=== PATIENT | female | born 1945 | race Caucasian/White ===

== ENCOUNTER 2019-08-08 12:37 | Inpatient (IN) | payer OTHER ==
[~2019-08-08 12:37] MED LIST: MIDAZOLAM HCL 2 MG/2 ML INJ ONE; RSI MEDICATION KIT IV ONE
[2019-08-08] MEDS ORDERED: ROCURONIUM 50 MG/5 ML VIAL IV ONE (12:39)
[2019-08-08] MEDS ORDERED: MAGNESIUM SULFATE 1 gm IVPB 1 GM/100 ML BAG IV ONE (12:46)
[2019-08-08] MEDS ORDERED: METHYLPREDNISOLONE 125 MG INJ ONE (12:46)
[2019-08-08] MEDS ORDERED: LEVALBUTEROL 1.25 MG/3 ML NEB ONE (12:46)
[2019-08-08] MEDS ORDERED: NA CHLORIDE 0.9% 1,000 ML ONE ×2 (12:46→13:41)
--- NOTE | 2019-08-08 13:04 | RAD REPORT ---
EXAM DESCRIPTION: RAD - Chest Single View - 08/08/2019 12:52 pm CLINICAL HISTORY: DYSPNEA Chest pain. COMPARISON: <Comparisons> FINDINGS: Portable technique limits examination quality. Tip of the ET tube is above the rl. Enteric tube descends into the upper abdomen. Left-sided veno us catheter has tip in the SVC in the right atrium. The heart is normal in size. Opacification of the right lung apex with reduced right lung volume.
--- NOTE | 2019-08-08 13:20 | RAD REPORT ---
EXAM DESCRIPTION: CT - Head Brain Wo Cont - 08/08/2019 1:11 pm CLINICAL HISTORY: AMS, seizure, unresponsive Headache, drowsiness COMPARISON: No comparisons TECHNIQUE: All CT scans are performed using dose optimization technique as appropriate and may inclu de automated exposure control or mA/KV adjustment according to patient size. FINDINGS: No intracranial hemorrhage, hydrocephalus or extra-axial fluid collection.No areas of brai n edema or evidence of midline shift. The paranasal sinuses and mastoids are clear. The calvarium is intact. IMPRESSION: No acute intracranial abnormality.
[2019-08-08 13:25] LABS: Potassium 5.2 mmol/L (3.5-5.1); Troponin (Emerg Dept Use Only) 0.06 ng/mL (0.0-0.045)
[2019-08-08 13:26] LABS: Absolute Lymphocytes (CBC) 4.5 K/uL (0.7-4.9); Basophils % 0.3 % (0-1.3); Hematocrit 41.3 % (36.0-45.0); Lymphocytes % 26.6 % (15.3-44.8); MPV 9.1 fL (7.6-11.3); RBC Red Blood Cell Count 5.14 M/uL (3.86-4.86)
[2019-08-08 13:40] LABS: Arterial Blood Carboxyhemoglob 5.3 % (0-1.5); Blood Gas Oxyhemoglobin 93.5 % (94-97); Blood O2 Saturation 99.6 % (92-98.5)
[2019-08-08] MEDS ORDERED: Levofloxacin500mg IV 500 MG/100 ML BAG IV ONE (13:40)
[2019-08-08] MEDS ORDERED: CEFTRIAXONE/SWI 1gm 1 GM/10 ML SYR ONE (13:41)
[2019-08-08] MEDS ORDERED: MIDAZOLAM HCL 2 MG/2 ML INJ ONE ×2 (14:11→14:26)
--- NOTE | 2019-08-08 14:12 | ER ---
Nurse's Notes [facility] Name: Fela Mustafa Age: 73 yrs Sex: Female : 1945 Arrival Date: 08/08/2019 Time: 12:44 Bed 4 Private MD: Diagnosis: Acute respiratory failure with hypercapnia;Hypoxemia;Altered mental status, unspecified Presentation: 08/08 12:48 Presenting complaint: EMS states: toned out for SOB, HX of COPD. heart problems. pt was ch moving on scene, alert, then decompensated on the way down. o2 sat 73, hr 126. Transition of care: patient was not received from another setting of care. Onset of symptoms was August 08, 2019. Risk Assessment: Do you want to hurt yourself or someone else? Patient reports no desire to harm self or others. Initial Sepsis Screen: Does the patient meet any 2 criteria? No. Patient's initial sepsis screen is negative. Does the patient have a suspected source of infection? No. Patient's initial sepsis screen is negative. Care prior to arrival: None. 12:48 Method Of Arrival: EMS: [facility] 12:48 Acuity: GENO 1 Triage Assessment: 12:40 Neuro: Level of Consciousness is unresponsive. 12:40 Pain: Unable to use pain scale. Patient is unresponsive. 12:51 General: Appears distressed, Behavior is unresponsive. Historical: - PMHx: 12:51 heart issues; ch - Immunization history:: Adult Immunizations unknown. - Social history:: Smoking status: Patient uses tobacco products. - Ebola Screening: : Patient negative for fever greater than or equal to 101.5 degrees Fahrenheit, and additional compatible Ebola Virus Disease symptoms Patient denies exposure to infectious person Patient denies travel to an Ebola-affected area in the 21 days before illness onset No symptoms or risks identified at this time. - Unable to obtain history due to: obtunded state. Screenin:01 Abuse screen: unable to assess. Nutritional screening: No deficits noted. Tuberculosis ch screening: No symptoms or risk factors identified. Fall Risk Total Drummond Fall Scale indicates High Risk Score (45 or more points). Fall prevention measures have been instituted. Side Rails Up X 2 Placed Close to Nursing Station 1:1 Attendant Assigned Frequent Obs/Assessments Occuring. Assessment: 12:35 Derm: Skin is dusky, mottled. ch 12:35 Neuro: Level of Consciousness is unresponsive. Respiratory: pt is not breathing ch effectively on her own. pt resps are shallow Breath sounds are diminished bilaterally. the patient has severe shortness of breath. : No deficits noted. Musculoskeletal: pt limbs flaccid. pt has swelling to R lower leg, approx +3 pitting edema. non weeping, skin is intact, appears old. 12:54 Neuro: Level of Consciousness is unresponsive, Oriented to none. Cardiovascular: Heart ch tones S1 S2 present. Respiratory: Airway is patent Trachea midline Breath sounds are diminished Breath sounds with wheezes. GI: Abdomen is obese, Bowel sounds present X 4 quads. 13:11 Reassessment: pt in ct with aris can. ch 13:32 Reassessment: pt has both stool and urine incontinence. pt changed. ch 13:50 General: Appears in no apparent distress. uncomfortable, Behavior is unresponsive. pt ch color is improving, pt is no longer purple.. Derm: Skin is fragile, has skin tears on r elbow. 14:10 Reassessment: pt is wiggling in room, pt is moving both arms reaching for tube. pt ch medicated per verbal order. 14:35 Reassessment: pt is fighting tube, and moving arms and legs. pt medicated with versed ch twice, no changes. pt placed in soft restraints, and propofol drip started in ct due to pt movement and becoming a danger to herself. 15:00 Reassessment: rt suctioning thick yellow green chunks from pt lungs. pt responds by ch coughing and moving some. pt propofol titrated to maintain sedation. pt o2 remains above 98%. Vital Signs: 12:51 BP 131 / 68; Pulse 134; Resp 16; Pulse Ox 99% on R/A; Weight 100 kg; Height 5 ft. 3 in. ch (160.02 cm); Pain 0/10; 13:01 BP 140 / 69; Pulse 127; Resp 20; Pulse Ox 100% on ETT vent; Pain 0/10; ch 13:33 Temp 98(R); ch 14:21 BP 131 / 65; Pulse 117; Resp 18; Temp 98.8; Pulse Ox 99% on R/A; Pain 0/10; ch 15:00 BP 126 / 68; Pulse 104; Resp 22; Temp 97.2(C); Pulse Ox 99% on ETT vent; 12:51 Body Mass Index 39.05 (100.00 kg, 160.02 cm) Maybell Coma Score: 13:05 Eye Response: none(1). Verbal Response: incomprehensible(2). Motor Response: withdraws rn from pain(4). Total: 7. ED Course: 12:32 Oxygen administration via non-rebreather mask pt on NRB at 15 per min o2 is in the ch 70's. pt changed from NRB to AMBU bag upon arrival. 12:37 Missed attempt(s): 20 gauge in right in left antecubital area. attempted by aris and Vita Gomez . Bleeding controlled, band aid applied, catheter tip intact. 12:38 Patient has correct armband on for positive identification. Placed in gown. Bed in low ch position. Call light in reach. Side rails up X2. Adult w/ patient. 12:38 monitoring specialist on. Pulse ox on. NIBP on. 12:40 Inserted saline lock: 22 gauge in right hand, using aseptic technique. Blood collected. 12:43 Assisted provider with intubation using 7.5 mm ETT via oral route. ET tube secured at 23cm at the gums. Set up intubation tray. Intubated by Ron Buchanan MD Placement verified by CXR, CO2 detector w/ + color change, Patient tolerated well. 12:44 Patient arrived in ED. ms 12:44 Ron Buchanan MD is Attending Physician. rn 12:47 Natalie Kevin, RN is Primary Nurse. 12:50 Triage completed. 12:51 Arm band placed on left wrist. Patient placed in an exam room, on a stretcher, on oxygen, on satellite project site monitor, on pulse oximetry. 12:53 X-ray completed. Portable x-ray completed in exam room. Patient tolerated procedure mh1 well. 12:53 XRAY CXR (1 view) In Process Unspecified. EDMS 12:58 Accessed [facility]. using accessed w/ # 20 Gutierrez needle, ,sterile technique, per hospital protocol. Clean \T\ dry. Dressing intact. accessed by vita gomez Good blood return. Flushes easily. 13:11 CT Head Brain wo Cont In Process Unspecified. EDMS 13:20 CT completed. Patient moved back from CT. kw1 14:11 Kalyan Carmona DO is Hospitalizing Provider. rn 14:21 Radiology exam delayed due to IV insertion attempt and/or patient not having kw1 appropriate IV at this time. 14:22 Dorsey cath inserted, using sterile technique, 18 Fr., by ga, balloon inflated, to gravity drainage, urine specimen collected. returned clear yellow urine. Patient tolerated well. 14:22 NGT: inserted 16 Fr. other orally Placement verified by X-ray, ch 14:30 Inserted saline lock: 20 gauge in left antecubital area, using aseptic technique. iw 15:17 Patient admitted, IV remains in place. intact, No redness/swelling at site. jl7 15:55 Primary Nurse role handed off by Natalie Kevin, WILMA ch 15:56 Natalie Kevin, RN is Primary Nurse. ch 16:00 Urine Dipstick--Ancillary (enter results) Sent. ch Administered Medications: 12:40 Drug: Etomidate 20 mg Route: IVP; Site: right hand; ch 14:16 Follow up: Response: No adverse reaction ch 12:41 Drug: Rocuronium 50 mg Route: IVP; Site: right hand; ch 14:16 Follow up: Response: No adverse reaction ch 12:44 Drug: NS 0.9% 1000 ml Route: IV; Rate: 1000 ml; Site: right hand; ch 13:20 Follow up: IV Status: Completed infusion; IV Intake: 1000ml ch 12:44 Drug: Ativan 2 mg Route: IVP; Site: right hand; ch 14:18 Follow up: Response: No adverse reaction ch 12:45 Drug: Xopenex (3) 1.25 mg Route: Inhalation; ch 14:16 Follow up: Response: No adverse reaction ch 12:49 Drug: Magnesium Sulfate 1 grams Route: IVPB; Infused Over: 1 hrs; Site: Port-a-cath; ch 14:17 Follow up: IV Status: Completed infusion; IV Intake: 100ml ch 12:50 Drug: SOLU-Medrol 125 mg Route: IVP; Site: right hand; ch 14:18 Follow up: Response: No adverse reaction ch 13:00 Drug: NS 0.9% 1000 ml Route: IV; Rate: 1 bolus; Site: right hand; ch 14:15 Follow up: IV Status: Completed infusion; IV Intake: 1000ml 13:40 Drug: Rocephin - (cefTRIAXone) 1 grams Route: IVPB; Infused Over: 30 mins; Site: Port-a-cath; 14:16 Follow up: IV Status: Completed infusion; IV Intake: 10ml ch 14:05 Drug: LevaQUIN 500 mg Volume: 100 ml; Route: IVPB; Infused Over: 60 mins; Site: right hand; 15:30 Follow up: IV Status: Infusion continued upon admission ch 14:14 Drug: Versed 2 mg Route: IVP; Site: Port-a-cath; 14:19 Follow up: Response: No adverse reaction; Marked relief of symptoms ch 15:59 Follow up: Response: No adverse reaction; No change in condition; No change in ch condition, pt still restless 14:15 CANCELLED (Duplicate Order): NS 0.9% 1000 ml IV at 1000 ml once ch 14:30 Drug: Versed 1 mg Route: IVP; Site: Port-a-cath; 14:35 Follow up: Response: No adverse reaction; No change in condition 14:35 Drug: Propofol 5 mcg/kg/min Route: IV; Rate: calculated rate; Site: [facility]; 15:33 Follow up: IV Status: Infusion continued upon admission ch Intake: 13:20 IV: 1000ml; Total: 1000ml. ch 14:15 IV: 1000ml; Total: 2000ml. ch 14:16 IV: 10ml; Total: 2010ml. ch 14:17 IV: 100ml; Total: 2110ml. Outcome: 14:11 Decision to Hospitalize by Provider. rn 15:17 Admitted to ICU accompanied by nurse, via stretcher, room 6, with oxygen, on monitor, jl7 Report called to WILMA Karimi 15:17 Condition: stable 15:17 Discharge instructions given to patient, Instructed on the need for admit, Demonstrated understanding of unable to demonstrate understanding 15:27 Patient left the ED. jl7 15:57 Patient left the ED. Signatures: Dispatcher [employer] EDMS Natalie Kevin RN RN ch Harvey, Martha 1 Britt Bullock RN RN iw Villarreal, Maria ms Nieto, Roman, MD MD rn Leal, Jahala, RN RN jl7 Wilhelm, Kimberly kw1 Corrections: (The following items were deleted from the chart) 13:12 12:54 Pain: Denies pain. [facility] 13:12 13:11 Reassessment: Patient appears in no apparent distress at this time. Patient ch and/or family updated on plan of care and expected duration. Pain level reassessed. 14:15 14:13 NS 0.9% 1000 ml IV at 1000 ml in Port-a-cath [facility] 16: 13:50 Reassessment: Patient appears in no apparent distress at this time. Patient ch and/or family updated on plan of care and expected duration. Pain level reassessed. Patient is alert, oriented x 3, equal unlabored respirations, skin warm/dry/pink. 16: 14:21 Pain: Unable to use pain scale. Patient is intubated. Patient is unresponsive. [facility] 16: 14:35 Neuro: [facility] 16: 13:01 Abuse screen: Denies threats or abuse. Denies injuries from another. [facility] 16: 13:01 Fall Risk None identified. [facility]
--- NOTE | 2019-08-08 14:13 | EDPHYS ---
Physician Documentation [facility] Name: Fela Mustafa Age: 73 yrs Sex: Female : 1945 Arrival Date: 08/08/2019 Time: 12:44 Bed 4 Private MD: ED Physician Ron Buchanan HPI: 08/08 13:05 This 73 yrs old Female presents to ER via EMS with complaints of Respiratory rn Distress. 13:05 Onset: The symptoms/episode began/occurred at an unknown time. Severity of symptoms: At rn their worst the symptoms were severe incapacitating. Unable to obtain HPI due to altered mental status, obtunded state, patient distress. Brought in by [facility], got call for difficulty breathing, + smoker, arrived and was holding nebulizer to face, rapidly deteriorated, was cyanotic and appeared to have seizure activity. Daughter told EMS has COPD and shakes when oxygen low. No other details able to be given by EMS. No meds or intervention other than oxygen. . Historical: - PMHx: 12:51 heart issues; ch - Immunization history:: Adult Immunizations unknown. - Social history:: Smoking status: Patient uses tobacco products. - Ebola Screening: : Patient negative for fever greater than or equal to 101.5 degrees Fahrenheit, and additional compatible Ebola Virus Disease symptoms Patient denies exposure to infectious person Patient denies travel to an Ebola-affected area in the 21 days before illness onset No symptoms or risks identified at this time. - Unable to obtain history due to: obtunded state. ROS: 13:05 Unable to obtain ROS due to obtunded state. rn Exam: 13:05 Constitutional: This is a well developed, well nourished patient who is cyanotic with rn right sided gaze and clonic activity. Head/Face: Normocephalic, atraumatic. Eyes: Pupils equal round and reactive to light, extra-ocular motions intact. ENT: No oral trauma, + perioral cyanosis Cardiovascular: Tachycardic, regular, no murmur Respiratory: + shallow breaths with diminished breath sounds right lung, + coarse bilateral breath sounds with exp wheezing with bagging. Abdomen/GI: soft, non-distended MS/ Extremity: Pulses weak throughout with cyanosis, mild swelling RLE with greater circumference compared to left Neuro: Patient unresponsive, does not follow command, right sided gaze with clonic activity intermittently. Vital Signs: 12:51 BP 131 / 68; Pulse 134; Resp 16; Pulse Ox 99% on R/A; Weight 100 kg; Height 5 ft. 3 in. ch (160.02 cm); Pain 0/10; 13:01 BP 140 / 69; Pulse 127; Resp 20; Pulse Ox 100% on ETT vent; Pain 0/10; ch 13:33 Temp 98(R); ch 14:21 BP 131 / 65; Pulse 117; Resp 18; Temp 98.8; Pulse Ox 99% on R/A; Pain 0/10; ch 15:00 BP 126 / 68; Pulse 104; Resp 22; Temp 97.2(C); Pulse Ox 99% on ETT vent; ch 12:51 Body Mass Index 39.05 (100.00 kg, 160.02 cm) ch Braydon Coma Score: 13:05 Eye Response: none(1). Verbal Response: incomprehensible(2). Motor Response: withdraws rn from pain(4). Total: 7. Procedures: 12:59 Intubation: Ventilated with 100% NRB prior to procedure. O2 saturation prior to harness inspector was 87 %. Intubated orally using # 4 Rico blade with 7.5 mm ETT. was successful on first attempt. Cricoid pressure applied during procedure. Tube secured at right side of mouth measured 23 cm at gum. Placement verified by CXR, CO2 detector with (+) color change, auscultating bilateral breath sounds, O2 saturation after procedure was 98 %. Patient tolerated well. MDM: 12:44 Patient medically screened. rn 13:10 Test interpretation: by ED physician or midlevel provider: plain radiologic studies, rn CXR with collapse of RUL, ETT above rl. . 14:09 Differential diagnosis: Chronic Obstructive Pulmonary Disease Myocardial Infarction rn pneumonia, pulmonary edema, Sepsis. Data reviewed: vital signs, nurses notes, lab test result(s), EKG, radiologic studies, CT scan, plain films, and as a result, I will admit patient. Response to treatment: the patient's symptoms have markedly improved after treatment. Admission orders: after a detailed discussion of the patient's condition and case, the admit orders are written by me. ED course: Patient's cyanosis has resolved, moves all 4 extremities with reflexes intact, is waking up and fighting vent, will keep sedated, ordered CT chest PE protocol given Port and RLE swelling. Admitted to Dr. Ortega for respiratory failure. . 08/08 12:46 Order name: Blood Culture Adult (2) rn 08/08 12:46 Order name: BMP; Complete Time: 13:49 rn 08/08 12:46 Order name: CBC with Diff rn 08/08 12:46 Order name: NT PRO-BNP; Complete Time: 13:49 rn 08/08 12:46 Order name: PT-INR rn 08/08 12:46 Order name: Ptt, Activated rn 08/08 12:46 Order name: XRAY CXR (1 view); Complete Time: 13:25 rn 08/08 12:46 Order name: Troponin (emerg Dept Use Only); Complete Time: 13:49 rn 08/08 12:46 Order name: ABG rn 08/08 12:52 Order name: Lactate; Complete Time: 13:49 rn 08/08 12:52 Order name: Flu; Complete Time: 13:29 rn 08/08 15:20 Order name: Urine Dipstick--Ancillary (enter results) em1 08/08 15:24 Order name: Urine Dipstick-Ancillary EDVA 08/08 15:26 Order name: PTT, Activated Partial Thromb EDVA 08/08 12:46 Order name: CT Head Brain wo Cont; Complete Time: 13:25 rn 08/08 14:05 Order name: CT Chest For PE Angio rn 08/08 15:15 Order name: CT EDVA 08/08 12:46 Order name: Call RT; Complete Time: 13:12 rn 08/08 12:46 Order name: EKG; Complete Time: 12:48 rn 08/08 12:46 Order name: Cardiac monitoring; Complete Time: 13:13 rn 08/08 12:46 Order name: EKG - Nurse/Tech; Complete Time: 14:16 rn 08/08 12:46 Order name: IV Saline Lock; Complete Time: 13:13 rn 08/08 12:46 Order name: Labs collected and sent; Complete Time: 13:13 rn 08/08 12:46 Order name: O2 Per Protocol; Complete Time: 13:13 rn 08/08 12:46 Order name: O2 Sat Monitoring; Complete Time: 13:13 rn 08/08 12:46 Order name: Glucose Level; Complete Time: 13:13 rn Administered Medications: 12:40 Drug: Etomidate 20 mg Route: IVP; Site: right hand; ch 14:16 Follow up: Response: No adverse reaction ch 12:41 Drug: Rocuronium 50 mg Route: IVP; Site: right hand; ch 14:16 Follow up: Response: No adverse reaction ch 12:44 Drug: NS 0.9% 1000 ml Route: IV; Rate: 1000 ml; Site: right hand; ch 13:20 Follow up: IV Status: Completed infusion; IV Intake: 1000ml ch 12:44 Drug: Ativan 2 mg Route: IVP; Site: right hand; ch 14:18 Follow up: Response: No adverse reaction ch 12:45 Drug: Xopenex (3) 1.25 mg Route: Inhalation; ch 14:16 Follow up: Response: No adverse reaction ch 12:49 Drug: Magnesium Sulfate 1 grams Route: IVPB; Infused Over: 1 hrs; Site: Port-a-cath; ch 14:17 Follow up: IV Status: Completed infusion; IV Intake: 100ml ch 12:50 Drug: SOLU-Medrol 125 mg Route: IVP; Site: right hand; ch 14:18 Follow up: Response: No adverse reaction ch 13:00 Drug: NS 0.9% 1000 ml Route: IV; Rate: 1 bolus; Site: right hand; ch 14:15 Follow up: IV Status: Completed infusion; IV Intake: 1000ml ch 13:40 Drug: Rocephin - (cefTRIAXone) 1 grams Route: IVPB; Infused Over: 30 mins; Site: Port-a-cath; 14:16 Follow up: IV Status: Completed infusion; IV Intake: 10ml ch 14:05 Drug: LevaQUIN 500 mg Volume: 100 ml; Route: IVPB; Infused Over: 60 mins; Site: right hand; 15:30 Follow up: IV Status: Infusion continued upon admission ch 14:14 Drug: Versed 2 mg Route: IVP; Site: Port-a-cath; ch 14:19 Follow up: Response: No adverse reaction; Marked relief of symptoms ch 15:59 Follow up: Response: No adverse reaction; No change in condition; No change in ch condition, pt still restless 14:15 CANCELLED (Duplicate Order): NS 0.9% 1000 ml IV at 1000 ml once 14:30 Drug: Versed 1 mg Route: IVP; Site: Port-a-cath; 14:35 Follow up: Response: No adverse reaction; No change in condition 14:35 Drug: Propofol 5 mcg/kg/min Route: IV; Rate: calculated rate; Site: Port-a-cath; 15:33 Follow up: IV Status: Infusion continued upon admission ch Disposition: 14:09 Critical Care:. rn Disposition: 08/08/19 14:11 Hospitalization ordered by Kalyan Ortega for Inpatient Admission. Preliminary diagnosis are Acute respiratory failure with hypercapnia, Hypoxemia, Altered mental status, unspecified. - Bed requested for Intensive Care Unit. - Status is Inpatient Admission. ch - Condition is Fair. - Problem is new. - Symptoms have improved. UTI on Admission? No Critical care time excluding procedures: 14:09 Critical care time: Bedside Care: 25 minutes, Consultation: 5 minutes. Total time: 30 rn minutes Signatures: Dispatcher [employer] EDNatalie Hartley RN RN Ron Paris MD MD rn Martinez, Eric em1 Jaswinder Dyer RN RN jl7 Corrections: (The following items were deleted from the chart) 14:04 13:05 Constitutional: This is a well developed, well nourished patient who is cyanotic rn with right sided gaze and clonic activity. Head/Face: Normocephalic, atraumatic. Eyes: Pupils equal round and reactive to light, extra-ocular motions intact. ENT: No oral trauma, + perioral cyanosis Cardiovascular: Tachycardic, regular, no murmur Respiratory: + shallow breaths with diminished breath sounds right lung, + coarse bilateral breath sounds with exp wheezing with bagging. Abdomen/GI: soft, non-distended MS/ Extremity: Pulses weak throughout with cyanosis Neuro: Patient unresponsive, does not follow command, right sided gaze with clonic activity intermittently. rn 14:15 13:32 NS 0.9% 1000 ml IV at 1000 ml once ordered. rn ch 14:15 14:11 NS 0.9% 1000 ml IV at 1000 ml once given. ch 14:15 14:15 NS 0.9% 1000 ml IV at 1000 ml once ordered. [facility] 15:00 14:11 Hospitalization Ordered by Kalyan Ortega DO for Inpatient Admission. Preliminary em1 diagnosis is Acute respiratory failure with hypercapnia; Hypoxemia; Altered mental status, unspecified. Bed requested for Intensive Care Unit. Status is Inpatient Admission. Condition is Fair. Problem is new. Symptoms have improved. UTI on Admission? No. rn 15:27 15:00 08/08/2019 14:11 Hospitalization Ordered by Kalyan Ortega DO for Inpatient jl7 Admission. Preliminary diagnosis is Acute respiratory failure with hypercapnia; Hypoxemia; Altered mental status, unspecified. Bed requested for Intensive Care Unit. Status is Inpatient Admission. Condition is Fair. Problem is new. Symptoms have improved. UTI on Admission? No. em1 15:57 15:27 08/08/2019 14:11 Hospitalization Ordered by Kalyan Ortega DO for Inpatient Admission. Preliminary diagnosis is Acute respiratory failure with hypercapnia; Hypoxemia; Altered mental status, unspecified. Bed requested for Intensive Care Unit. Status is Inpatient Admission. Condition is Fair. Problem is new. Symptoms have improved. UTI on Admission? No. jl7
[2019-08-08 14:22] LABS: Protime INR 0.92
[2019-08-08] MEDS ORDERED: PROPOFOL 200 MG/20 ML VIAL IV ONE (14:39)
[2019-08-08] MEDS ORDERED: PROPOFOL 1,000 MG/100 ML VIAL IV ONE (14:59)
--- NOTE | 2019-08-08 15:11 | RAD REPORT ---
EXAM DESCRIPTION: CT - Chest For Pe Angio - 08/08/2019 2:58 pm CLINICAL HISTORY: Chest pain. respiratory distress COMPARISON: No comparisons TECHNIQUE: CT angiogram of the pulmonary arteries was performed with MIP. All CT scans are performed using dose optimization technique as appropriate and may include automated exposure control or mA/KV adjustment according to patient size. FINDINGS: No evidence of pulmonary thromboembolism. No acute aortic finding demonstrated. Prominent emphysema is seen with a dense consolidation involving the right apex, likely neoplastic in etiology. There is erosive changes of the right first rib with soft tissue extending superiorly thro ugh the superior margin of right thoracic cage into the region of the right-sided scalene musculature . Mild edema is present in this region inflammatory fat stranding and fluid seen in the right axilla. Loss of the normal fat planes about the right axilla and superior posterior scapular margin noted. P [place] tumor is felt to be most likely. ET tube tip is above the rl. Enteric tube is seen extending into the stomach. IMPRESSION: No evidence of pulmonary thromboembolism. 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 Followup bronchoscopy may be of value.
[2019-08-08] MEDS ORDERED: ACETAMINOPHEN 650MG/RECT SUPP PR PRN (15:16)
[2019-08-08] MEDS ORDERED: ACETAMINOPHEN 500 MG TAB PO PRN (15:16)
[2019-08-08] MEDS ORDERED: IPRATROPIUM BROM 0.5MG/2.5ML NEB PRN (15:16)
[2019-08-08] MEDS ORDERED: ONDANSETRON 4 MG/2 ML VIAL IV PRN (15:16)
[2019-08-08] MEDS ORDERED: HYDRALAZINE HCL 20 MG/ML VIAL IV PRN (15:16)
[2019-08-08] MEDS ORDERED: HALOPERIDOL LACT 5 MG/ML INJ IV PRN (15:20)
[2019-08-08] MEDS ORDERED: SUCCINYLCHOLINE 20 MG/ML (10 ML) IV ONE (15:22)
[2019-08-08] MEDS ORDERED: ETOMIDATE 20 MG/10 ML VIAL IV ONE (15:23)
[2019-08-08 15:24] LABS: Urine Blood NEGATIVE (NEG); Urine Glucose TRACE (NEG); Urine Protein NEGATIVE (NEG); Urine pH 6.5 (5.0-7.0)
[2019-08-08 15:33] LABS: Barbiturates NEGATIVE (NEGATIVE); Benzodiazepines POSITIVE (NEGATIVE); Cocaine NEGATIVE (NEGATIVE); METHAMPHETAM NEGATIVE (NEGATIVE); Methadone NEGATIVE (NEGATIVE); Opiates NEGATIVE (NEGATIVE); Phencyclidine NEGATIVE (NEGATIVE); THC Cannibis NEGATIVE (NEGATIVE)
[2019-08-08] MEDS: NACHLORIDE 0.45% 1,000 ML IV SCH (16:42)
[2019-08-08] MEDS: METHYLPREDNISOLONE 40 MG INJ IV SCH (16:42)
--- NOTE | 2019-08-08 17:24 | P.HP ---
Certification for Inpatient Patient admitted to: Inpatient With expected LOS: >2 Midnights Patient will require the following post-hospital care: Nursing Home Practitioner: I am a practitioner with admitting privileges, knowledge of patient current condition, hospital course, and medical plan of care. Services: Services provided to patient in accordance with Admission requirements found in Title 42 Section 412.3 of the Code of Federal Regulations Patient History Date of Service: 08/08/19 Primary Care Provider: From [place], [place] Reason for admission: Shortness of breath History of Present Illness: 73-year-old female with history of lung lung cancer, COPD, tobacco abuse on chemotherapy. Most of the information came from the nurse and ER physician. Patient is originally from [facility]. She has been getting most of her care in [facility] at [facility]. Patient was brought in by EMS due to increasing shortness of breath. Apparently she had called 911. By the time EMS arrived she was having difficulty breathing. EMS was not capable to perform intubation in the field as they were not equipped. She was brought to the ER for further evaluation thereafter. Patient appeared hypoxic and cyanotic upon arrival. Patient likely hypoxic for more than 20 min as the patient came from [place], [place]. She was visiting the area. In the ER patient was intubated. Patient appeared in respiratory failure. Initial white count 16.8, hemoglobin 12.8. Sodium 141, potassium 5.2. BUN of 28, creatinine 1.49 with a GFR of 34. Glucose 291. Troponin 0.06. Lactic acid elevated. Pro calcitonin pending. BNP greater than 2000. Urinalysis unremarkable. Drug screen positive for benzodiazepine. Alcohol level unremarkable. CT head unremarkable. CT chest showed prominent emphysema with dense consolidation in the right apex likely neoplastic in etiology especially in light of her history. There is erosive changes to the right 1st rib with soft tissue extending superiorly through the superior margin of the right thoracic cage in to the region of the right sided scalene musculature. Mild edema is present in the region. Pancoast tumor likely. No evidence of pulmonary embolism noted. COPD changes noted. Patient currently stable at this time. She is intubated. I was asked to admit the patient for further evaluation and treatment. Patient will go to ICU. When I saw the patient in the ER, she was intubated and sedated. Her color was much improved. Patient responding to pain and stimulation. Family not present at this time. Patient with left-sided Port-A-Cath. Allergies Penicillins Allergy (Intermediate, Verified 08/08/19 17:27) Hives/Rash - Past Medical/Surgical History Has patient received pneumonia vaccine in the past: Yes Diabetic: No -: Lung cancer suspect stage IV on chemotherapy -: COPD -: History of thyroid cancer -: History of IBS -: Thyroid surgery Psychosocial/ Personal History: Patient originally from [facility], getting most of her cancer care in [place] at [facility] [place]. Patient was visiting in the area. - Family History Family History: Reviewed- Non-Contributory - Social History Smoking Status: Current every day smoker Alcohol use: No CD- Drugs: No Caffeine use: Yes Place of Residence: Home Review of Systems is unable to be obtained Physical Examination - Vital Signs Temperature: 97.8 F Blood Pressure: 103/55 Pulse: 102 Respirations: 18 Pulse Ox (%): 100 - Physical Exam General: Disheveled, Other (Patient intubated and sedated. Her color is improved as the patient was cyanotic up on arrival to EMS peer) HEENT: Atraumatic, Normocephalic Neck: Supple Respiratory: Diminished (Diminished to the right side), Expiratory wheezes ( Bilateral) Cardiovascular: Abnormal pulses (Sinus tachycardia) Gastrointestinal: Normal bowel sounds, Soft and benign, Non-distended Musculoskeletal: No tenderness, No warmth Integumentary: Other (No edema to the lower extremities) Neurological: Other (Patient intubated. Patient response to pain stimuli) - Studies Laboratory Data (last 24 hrs) 08/08/19 12:50: PT 10.9, INR 0.92, APTT ND 08/08/19 12:50: WBC 16.8 H, Hgb 12.8, Hct 41.3, Plt Count 241 08/08/19 12:50: Sodium 141, Potassium 5.2 H, BUN 28 H, Creatinine 1.49 H, Glucose 299 H Microbiology Data (last 24 hrs): 08/08/19 12:50 Nasopharnyx Influenza Type A Antigen Screen - Final 08/08/19 12:50 Nasopharnyx Influenza Type B Antigen Screen - Final Assessment and Plan - Plan Impression: Toxic encephalopathy suspect sepsis with acute on chronic respiratory failure, hypoxia, cyanosis with COPD exacerbation complicated with underlying stage IV lung cancer on chemotherapy Acute renal failure likely dehydration with hyperkalemia Elevated troponin likely related to cardiac stress with possible underlying CAD Hypertension Tobacco abuse Plan: Toxic encephalopathy suspect sepsis with acute on chronic respiratory failure, hypoxia, cyanosis with COPD exacerbation complicated with underlying stage IV lung cancer on chemotherapy: Patient will be admitted to ICU. Will continue with sepsis protocol. Allergies reviewed with pharmacy. Patient allergic to penicillin. Will continue with vancomycin and add Levaquin. Blood cultures, sputum cultures obtained. Will continue with COPD medication. Will continue with IV Solu-Medrol. Case discussed with pulmonology. Await further recommendations. Will continue on vent protocol with respiratory consultation. Will continue with IV fluids. Will provide DVT prophylaxis-Lovenox. Will need to obtain more information from family. Will try to get records from [facility] in [facility]. Recheck chest x-ray tomorrow. Will follow lactic acid. Will have tactical debriefer officer reassess patient later tonight. Will provide medication for blood pressure if elevated. Nephrology consulted to address acute renal failure and hyperkalemia. Cardiology consulted to address elevated troponin. This is likely related to cardiac stress related to acute respiratory failure. Patient may have underlying CAD. Recheck lab in the a.m.. Electrolyte protocol in place. Continue to monitor the patient closely. I will turn the service over to Dr. Kuhn tomorrow. I will go over the plan of care with her. Anticipate discharge likely to skilled facility at discharge pending clinical improvement. Hospitalization will likely be more than 5 days. If hospitalization ia prolonged, then will need to consider long-term acute care facility placement or transfer to [place] to continue with her physicians and to be near her home. Acute renal failure likely dehydration with hyperkalemia: Nephrology consulted. Continue with IV fluid hydration. Elevated troponin likely related to cardiac stress with possible underlying CAD : Will monitor cardiac enzymes. Will obtain echocardiogram. Cardiology consulted to further evaluate. Hypertension: Will provide medication for blood pressure. Maintain blood pressure less than 150 systolic. Tobacco abuse: Apparently patient still smokes. This will need to be further addressed during her stay. Discharge Plan: Other ([facility] facility verses long-term acute care facility) Plan to discharge in: Greater than 2 days - Advance Directives Does patient have a Living Will: No Does patient have a Durable POA for Healthcare: No - Code Status/Comfort Care Code Status Assessed: No (Not able to be obtained) Time Spent Managing Pts Care (In Minutes): 65
[2019-08-08] MEDS: INSULIN -REGULAR HUMAN 50 UNIT/0.5 ML ML SQ SCH (17:35)
[2019-08-08 17:48] LABS: Anisocytosis 1+; Blood Morphology Comment NOTED (NOT SEEN); Platelet Estimate ADEQ
[2019-08-08] MEDS: VANCOMYCIN 1 GM in NA CHLORIDE 0.9% 250 ML IVPB SCH (17:54)
--- NOTE | 2019-08-08 17:59 | RAD REPORT ---
EXAM DESCRIPTION: US - Extrem Venous W Compress Steven - 08/08/2019 5:49 pm CLINICAL HISTORY: edema to the legs, R greater than L Bilateral leg edema and swelling. COMPARISON: No comparisons TECHNIQUE: Real-time sonographic interrogation of the left and right lower extremity deep venous sys tems was performed. FINDINGS: Normal compressibility, flow augmentation, phasic flow and spontaneous flow is identified in both the left and right lower extremity deep venous systems. IMPRESSION: No sonographic evidence of left or right lower extremity deep venous thrombosis.
[2019-08-08] MEDS ORDERED: VANCOMYCIN 1 GM in NA CHLORIDE 0.9% 500 ML IVPB SCH (18:00)
[2019-08-08] MEDS ORDERED: Levofloxacin500mg IV 500 MG/100 ML BAG IV SCH (18:00)
--- NOTE | 2019-08-08 18:00 | RAD REPORT ---
EXAM DESCRIPTION: US - Renal Ultrasound-Complete - 08/08/2019 5:51 pm CLINICAL HISTORY: acute kidney injury Flank pain COMPARISON: No comparisons FINDINGS: Both kidneys are normal in size, shape and echotexture. The right kidney measures 10.3 x 5.1 x 4.5 cm. No hydronephrosis, focal mass or perinephric fluid. The left kidney measures 10.2 x 5.1 x 4.2 cm. No hydronephrosis, focal mass or perinephric fluid. Dorsey catheter decompresses the urinary bladder. IMPRESSION: Unremarkable renal sonogram.
[2019-08-08 18:28] LABS: Urine Appearance CLEAR; Urine Bilirubin NEGATIVE (NEG); Urine Blood NEGATIVE (NEG); Urine Color YELLOW; Urine Glucose NEGATIVE (NEG); Urine Protein NEGATIVE (NEG); Urine Specific Gravity >=1.030 (1.005-1.030); Urine Urobilinogen 0.2 mg/dL (0.2-1.0)
[2019-08-08 18:36] LABS: Urine Protein/Creatinine Ratio 0.26 ratio (<0.15)
[2019-08-08 18:48] LABS: CKMB Creatine Kinase MB 6.6 ng/mL (0.3-3.6); Troponin I 0.09 ng/mL (0.0-0.045)
[2019-08-08 19:02] LABS: Urine Bacteria <20 /HPF (<20); Urine Culture Reflex Order NOT NEEDED; Urine RBC <5 /HPF (NONE SEEN)
[2019-08-08] MEDS: PROPOFOL 1,000 MG/100 ML VIAL IV PRN (19:18)
[2019-08-08] MEDS: ARFORMOTEROL TARTRATE 15 MCG/2 ML VIAL.NEB NEB SCH (20:00)
[2019-08-08] MEDS ORDERED: CEFEPIME 1 GM in NA CHLORIDE 0.9% 100 ML IV SCH (21:00)
[2019-08-08] MEDS ORDERED: CEFEPIME 1 GM/VIAL IV SCH (21:00)
[2019-08-08] MEDS: ATORVASTATIN 40 MG TAB PO SCH (21:22)
[2019-08-08 21:36] LABS: Arterial Blood Carboxyhemoglob 2.9 % (0-1.5); Blood O2 Saturation 98.7 % (92-98.5)
[2019-08-09] MEDS: PROPOFOL 1,000 MG/100 ML VIAL IV PRN ×7 (00:05→23:13)
[2019-08-09] MEDS: METHYLPREDNISOLONE 40 MG INJ IV SCH ×3 (00:48→16:34)
[2019-08-09] MEDS: NACHLORIDE 0.45% 1,000 ML IV SCH (03:47)
[2019-08-09] MEDS: FENTANYL CITR 100 MCG/2 ML IV PRN ×2 (03:48→20:44)
--- NOTE | 2019-08-09 05:21 | EKG ---
Test Date: 2019-08-08 Test Time: 13:41:20 Office Aide: MESSI MEASUREMENT RESULTS: Intervals: Rate: 120 WA: 124 QRSD: 136 QT: 346 QTc: 489 [place]: P: 64 [place]: 124 QRS: -73 T: 78 INTERPRETIVE STATEMENTS: Sinus tachycardia Right atrial enlargement Right bundle branch block Left anterior fascicular block Bifascicular block Cannot rule out Septal infarct, age undetermined Abnormal ECG No previous ECG available for comparison Electronically Signed On 08-09-19 05:21:00 MAGNETO ELECTRICIAN by Sagar Long
[2019-08-09 05:25] LABS: Absolute Lymphocytes (CBC) 0.3 K/uL (0.7-4.9); Hematocrit 35.3 % (36.0-45.0); Lymphocytes % 4.2 % (15.3-44.8); RBC Red Blood Cell Count 4.66 M/uL (3.86-4.86)
[2019-08-09 05:43] LABS: Magnesium 2.2 mg/dL (1.8-2.4); Potassium 4.5 mmol/L (3.5-5.1); Thyroid Stimulating Hormone 0.04 uIU/mL (0.360-3.740)
[2019-08-09 05:45] LABS: CKMB Creatine Kinase MB 4.9 ng/mL (0.3-3.6); Troponin I 0.06 ng/mL (0.0-0.045)
[2019-08-09 05:58] LABS: Arterial Blood Carboxyhemoglob 1.9 % (0-1.5); Blood Gas Oxyhemoglobin 95.3 % (94-97); Blood O2 Saturation 97.9 % (92-98.5)
[2019-08-09] MEDS: INSULIN -REGULAR HUMAN 50 UNIT/0.5 ML ML SQ SCH ×4 (06:00→18:00)
[2019-08-09 06:39] LABS: Blood Morphology Comment NOTED (NOT SEEN); Hypochromasia 1+; Platelet Estimate ADEQ
--- NOTE | 2019-08-09 07:33 | EKG ---
Test Date: 2019-08-08 Test Time: 15:20:34 Tree Care Foreman: SYHLA MEASUREMENT RESULTS: Intervals: Rate: 110 [place]: 120 QRSD: 96 QT: 342 QTc: 462 [place]: P: 68 [place]: 120 QRS: -28 T: -39 INTERPRETIVE STATEMENTS: Sinus tachycardia Right atrial enlargement Nonspecific ST and T wave abnormality Abnormal ECG Compared to ECG 08/08/2019 13:41:20 ST (T wave) deviation now present Right bundle-branch block no longer present Left anterior fascicular block no longer present Myocardial infarct finding no longer present Electronically Signed On 08-09-19 07:33:03 POLICE SERGEANT by Sagar Long
--- NOTE | 2019-08-09 08:17 | RAD REPORT ---
EXAM DESCRIPTION: RAD - Chest Single View - 08/09/2019 6:23 am CLINICAL HISTORY: intubated Chest pain. COMPARISON: Chest Single View dated 08/08/2019 FINDINGS: Portable technique limits examination quality. Tip of the ET tube remains above the rl. Left-sided port catheter has tip in the SVC. Enteric tub e tip is not included on the image. Opacification of the right lung apex is again seen.The heart is u pper limit normal in size.
--- NOTE | 2019-08-09 08:28 | P.CNS ---
Date of Consult: 08/09/19 Primary Care Provider: From [place], [place] Chief Complaint: Respiratory failure History of Present Illness: Patient is 73 years of age with a history of lung cancer COPD on chemotherapy admitted with respiratory distress patient was subsequently intubated transferred to the ICU patient is alert responsive cooperative very agitated copious secretions right upper lobe lung mass history of COPD the CV chemotherapy Allergies Penicillins Allergy (Intermediate, Verified 08/08/19 17:27) Hives/Rash - Past Medical/Surgical History Diabetic: No -: Lung cancer suspect stage IV on chemotherapy -: COPD -: History of thyroid cancer -: History of IBS -: IBS -: Thyroid surgery Psychosocial/ Personal History: Patient originally from [facility], getting most of her cancer care in [place] at [facility]. Patient was visiting in the area. - Social History Alcohol use: No CD- Drugs: No Caffeine use: Yes Place of Residence: Home Review of Systems is unable to be obtained Physical Examination Temp Pulse Resp BP Pulse Ox 98.2 F 96 H 23 H 157/89 H 97 08/09/19 06:00 08/09/19 06:00 08/09/19 06:00 08/09/19 06:00 08/09/19 06:00 General: Alert, Cooperative, Moderate distress Respiratory: Friction rub, Expiratory wheezes Cardiovascular: Regular rate/rhythm, Normal S1 S2 Gastrointestinal: Normal bowel sounds, Soft and benign Musculoskeletal: No clubbing, No swelling Integumentary: No rashes, No breakdown Laboratory Data (last 24 hrs) 08/08/19 12:50: PT 10.9, INR 0.92, APTT ND 08/08/19 12:50: WBC 16.8 H, Hgb 12.8, Hct 41.3, Plt Count 241 08/08/19 12:50: Sodium 141, Potassium 5.2 H, BUN 28 H, Creatinine 1.49 H, Glucose 299 H - Problems (1) Respiratory failure Current Visit: Yes Status: Acute Plan: Patient is 73 years of age admitted with respiratory distress she has a history of COPD being treated for lung cancer right upper lobe which she is receiving chemotherapy came in unresponsive labs reviewed she has COPD volume loss on the right side right upper lobe lung cancer chemistries reviewed cultures pending continue with bronchodilator therapy will evaluate for weaning and extubation patient has chronic hypercapnia Qualifiers: Chronicity: acute on chronic
[2019-08-09] MEDS: LORazepam 2 MG/ML VIAL IV PRN ×2 (08:34→16:34)
[2019-08-09] MEDS: ARFORMOTEROL TARTRATE 15 MCG/2 ML VIAL.NEB NEB SCH ×2 (08:41→19:55)
[2019-08-09] MEDS ORDERED: ASPIRIN EC 81 MG TAB PO SCH (09:00)
[2019-08-09] MEDS: ENOXAPARIN 40 MG/0.4 ML SQ SCH (09:33)
--- NOTE | 2019-08-09 09:53 | ECHO ---
HEIGHT: 5 ft 5 in WEIGHT: 178 lb 14.4 oz DATE OF STUDY: 08/09/[address]: Kalyan Carmona DO 2-DIMENSIONAL: YES M.MODE: YES DOPPLER: YES COLOR FLOW: YES TDS: YES PORTABLE: YES DEFINITY: BUBBLE STUDY: DIAGNOSIS: ACUTE RESPIRATORY FAILURE, ELEVATED TROPONIN CARDIAC HISTORY: CATHERIZATION: NO SURGERY: NO PROSTHETIC VALVE: NO PACEMAKER: NO MEASUREMENTS (cm) DIASTOLIC (NORMALS) SYSTOLIC (NORMALS) IVSd 0.8 (0.6-1.2) LA Diam 2.1 (1.9-4.0) LVEF 60-69% LVIDd 5.2 (3.5-5.7) LVIDs 4.2 (2.0-3.5) %FS 19% LVPWd 0.9 (0.6-1.2) Ao Diam 2.7 (2.0-3.7) 2 DIMENSIONAL ASSESSMENT: RIGHT ATRIUM: NORMAL LEFT ATRIUM: NORMAL RIGHT VENTRICLE: NORMAL LEFT VENTRICLE: NORMAL TRICUSPID VALVE: NORMAL MITRAL VALVE: MITRAL ANNULAR CALCIFICATION PULMONIC VALVE: NORMAL AORTIC VALVE: NORMAL PERICARDIAL EFFUSION: NONE AORTIC ROOT: NORAML LEFT VENTRICULAR WALL MOTION: NORMAL DOPPLER/COLOR FLOW: IMPAIRED LEFT VENTRICULAR RELAXATION. COMMENTS: NORMAL LEFT VENTRICULAR EJECTION FRACTION, MITRAL ANNULAR CALCIFICATION. OTHERWISE NORMAL 2-DIMENSIONAL ECHOCARDIOGRAM BUT STUDY WAS TECHNICALLY DIFFICULT. IMPAIRED LEFT VENTRICULAR RELAXATION. TECHNOLOGIST: SUNDAR DYKES
[2019-08-09] MEDS: ASPIRIN 81 MG CHEWABLE TABLET PO SCH (09:54)
--- NOTE | 2019-08-09 13:09 | CON ---
Reason For Consult: Abnormal troponin. History Of Present Illness: Mrs. Mustafa normally lives in [place]. She has a history of lung cancer. She is getting chemotherapy, nonresectable. She is visiting her son and became ill. Appar ently, she went to another ER about a week ago and was released. At this time, she was so short of b reath and actually unresponsive when she was brought in, but she had to be intubated. Her pCO2 was v tami elevated. Her pH was quite low. A CT scan reveals a Pancoast type tumor in the right upper part of the chest. There is no evidence of pulmonary embolus. Her electrocardiograms both revealed sinu s rhythm. One of them revealed a very wide right bundle-branch block. Once her heart rate was slowe d and her pH improved, right bundle-branch block resolved. We do not have much history. The patient is intubated, unresponsive. I do not have any history from old encounters here nor a detailed histo ry from her son. We do not want to know the medications used to be and whether she has any previous cardiac history. Her coagulation is normal. Hemoglobin and hematocrit were normal. White blood brook l count was elevated. Her highest pCO2 was 71 and the pH was 7.2 and she has a troponin of 0.06 and 0.09 and 0.06. N-terminal proBNP is elevated. Lactic acid level was elevated when she came in, it s jesus has come into the normal range. Her creatinine is 0.73. Blood sugars are 154, 146, 299. Impression: The patient is probably not suffering from an acute coronary syndrome and seems to be costa ve elevated troponin. Because of how ill she is, severe hypercapnia, respiratory failure, respirator y acidosis probably are the major contributor, also the tachycardia. An echocardiogram will be helpf ul to discern. Some important things we may need to know about her heart, but she is certainly not a candidate for coronary intervention with unresectable non-small cell carcinoma of the lung. CHANEL/OLI Voice ID: [id number] Report ID: [id number]
--- NOTE | 2019-08-09 14:17 | P.PN ---
Subjective Date of Service: 08/09/19 Primary Care Provider: From [place], [place] Chief Complaint: Respiratory failure Patient seen and examined with RN. Chart reviewed. Case discussed with nursing staff at bedside along with cert occupational therapy asst. Patient continues to be intubated this morning and sedated. Has been following commands this morning however still not able to be weaned off of ventilator. No events overnight family at bedside. Extensive discussion regarding care. Son was the medical power document review attorney also notified. Review of Systems 10-point ROS is otherwise unremarkable Physical Examination - Vital Signs Temperature: 98.2 F Blood Pressure: 136/78 Pulse: 107 Respirations: 26 Pulse Ox (%): 97 - Physical Exam General: Other (Intubated and sedated) HEENT: Atraumatic, PERRLA, EOMI Neck: Supple, JVD not distended Respiratory: Normal air movement, Expiratory wheezes, Inspiratory wheezes Cardiovascular: Regular rate/rhythm, Normal S1 S2 Gastrointestinal: Normal bowel sounds, No tenderness Musculoskeletal: No tenderness Integumentary: No rashes Neurological: Normal tone, Normal affect, Abnormal strength Lymphatics: No axilla or inguinal lymphadenopathy - Studies Laboratory Data (last 24 hrs) 08/08/19 12:50: PT 10.9, INR 0.92, APTT ND 08/08/19 12:50: WBC 16.8 H, Hgb 12.8, Hct 41.3, Plt Count 241 Microbiology Data (last 24 hrs): 08/08/19 13:10 Blood - Blood Anaerobic Blood Culture - Final 08/08/19 12:50 Nasopharnyx Influenza Type A Antigen Screen - Final 08/08/19 12:50 Nasopharnyx Influenza Type B Antigen Screen - Final Medications List Reviewed: Yes Assessment And Plan - Plan Assessment and plan Toxic encephalopathy Most likely secondary to sepsis This morning continues to be sedated Alert and oriented 0 Sepsis with acute respiratory failure White count improved this morning Blood culture sputum cultures negative thus far Currently on vancomycin and Levaquin. Was recently hospitalized thus making hospital-acquired pneumonia high on differential Will continue to monitor repeat CBC and CMP Hemodynamically stable at this time Acute respiratory failure most likely secondary to COPD exacerbation Hypercapnic and hypoxic respiratory failure Currently intubated and sedated. Will wean as tolerated Pulmonology consulted. Appreciated recommendations Duo nebs, steroids Patient also with underlying lung cancer currently on chemotherapy Will monitor closely here in the hospital Patient seen at [facility] in [place] will try to get records from them Acute renal failure likely dehydration with hyperkalemia Nephrology consulted. Continue with IV fluid hydration. Await nephrotoxic agents Elevated troponin likely related to sepsis Troponin x2 mildly elevated Cardiology consulted. Appreciated recommendations Echocardiogram within normal limits Hypertension Will provide medication for blood pressure. Maintain blood pressure less than 150 systolic. Tobacco abuse Apparently patient still smokes. This will need to be further addressed during her stay. Disposition: Pending clinical improvement at this time. Will attempt to wean patient off of the ventilator here in the hospital in the next 24 hr. Will continue with IV antibiotics and deescalate once cultures are Discharge Plan: Home Plan to discharge in: Greater than 2 days - Code Status/Comfort Care Code Status Assessed: Yes Critical Care: No
[2019-08-09] MEDS: IPRATROPIUM BROM 0.5MG/2.5ML NEB SCH ×2 (14:22→19:55)
[2019-08-09] MEDS: ALBUTEROL 2.5 MG/3 ML NEB SOL NEB PRN (19:55)
[2019-08-09] MEDS: ATORVASTATIN 40 MG TAB PO SCH (20:43)
[2019-08-09] MEDS ORDERED: PANTOPRAZOLE 40 MG INJ IVP ONE (21:48)
[2019-08-09] MEDS ORDERED: SODIUM CHLORIDE 0.9% 10ML INJ IV PRN (21:48)
[2019-08-10] MEDS: METHYLPREDNISOLONE 40 MG INJ IV SCH ×3 (00:07→17:26)
[2019-08-10] MEDS: IPRATROPIUM BROM 0.5MG/2.5ML NEB SCH ×4 (01:05→20:00)
[2019-08-10] MEDS: ALBUTEROL 2.5 MG/3 ML NEB SOL NEB PRN ×2 (01:05→06:40)
--- NOTE | 2019-08-10 01:12 | CON ---
Date of Consultation: 08/09/2019 Chief Complaint: Acute kidney injury. History Of Present Illness: Patient was admitted to the hospital on August 08. Blood work showed hyperkalemia, potassium of 5.2, elevated azotemia. Patient was found to have lactic acidosis. Lactic acid was 6.4. Bicarbonate was 30 and potassium was 5.2. BUN 28, creatinine 1.49. Patient has history of diabetes mellitus. She has respiratory failure. She was intubated. BNP was elevated up to 2997 and troponin was 0.06. Nephrology consultation was requested for acute kidney injury, nonoliguric. Patient has respiratory failure , hypoxemic. She has underlying COPD and chronic lung disease due to COPD. She has history of multiple intubations and hospitalizations with every 2 weeks on average over the last few months. Patient is a 73-year-old woman with history of lung cancer, COPD, on chemotherapy. She was admitted for respiratory distress. Subsequently, she was intubated, transferred to ICU. Patient has history of lung mass, history of COPD. Review of Systems: can not be obtained due to patient's condition. Patient is intubated. Past Medical History: Lung cancer, stage IV, on chemotherapy; COPD; thyroid cancer; history of IBS; thyroid surgery. Social History: No history of tobacco, alcohol, or illicit drugs. Family History: Unobtainable. Physical Examination: Vital Signs: Blood pressure 157/89, heart rate is 96, temperature 98.2, SpO2 97 %. Eyes: Anicteric sclerae. EOMI. Ears, Nose, Mouth, and Throat: No oozing, no drainage. Neck: No bruits. No JVD Lungs: Distant breath sounds bilaterally. Heart: S1, S2. No pericardial friction rub. Abdomen: Soft, benign. Extremities: No edema. No clubbing. No cyanosis. Neurological: Moving extremities. Cranial nerves intact. Psychiatric: Unobtainable. Patient is intubated. Laboratory Data: Platelet count 241, WBC 16.8, hemoglobin 12.8, hematocrit 41.3. Sodium 141, potassium 5.2, BUN 28, creatinine 1.49, glucose 299. Today, blood work showed sodium 140, potassium 4.5, chloride 105, CO2 30, BUN 24, creatinine 0.73, glucose 154, calcium 7.8. Albumin is pending. Urinalysis showed specific gravity greater than 1.030, blood negative, nitrites negative, WBC less than 5, RBC less than 5. Impression: Acute kidney injury, moderately severe secondary to prerenal azotemia. Patient is admitted to the hospital because of respiratory failure. She has altered mental status. She underwent CT scan of the head to rule out acute intracranial abnormalities. Patient remains intubated. Apparently, she had a seizure episode. Chest x-ray done. Subsequently, CT scan/angiogram was done with IV contrast. Patient will continue IV fluids as needed to prevent contrast-induced nephropathy. We will start Mucomyst. At this point, renal function has improved. There is high BUN and creatinine ratio. Potassium level is within normal limits. Patient is intubated. Continue treatment for respiratory failure, which is complex in this particular case. Avoid nephrotoxic medication. Monitor urine output and electrolytes. Blood pressure at this point is controlled. Patient will take hydralazine. Blood cultures obtained to rule out bacteremia. Patient is on levofloxacin, methylprednisolone for COPD exacerbation. Patient is on vancomycin for treatment of possible MRSA infection. Monitor vancomycin level closely. MARCELO/OLI Voice ID: [id number] Report ID: [id number] MTDD
[2019-08-10] MEDS: LORazepam 2 MG/ML VIAL IV PRN ×4 (02:46→22:07)
[2019-08-10] MEDS: FENTANYL CITR 100 MCG/2 ML IV PRN ×2 (02:54→12:26)
[2019-08-10] MEDS: PROPOFOL 1,000 MG/100 ML VIAL IV PRN ×3 (03:47→21:40)
[2019-08-10 05:41] LABS: Absolute Lymphocytes (CBC) 0.4 K/uL (0.7-4.9); Basophils % 0.2 % (0-1.3); Hematocrit 35.1 % (36.0-45.0); Lymphocytes % 4.5 % (15.3-44.8); MPV 8.3 fL (7.6-11.3); RBC Red Blood Cell Count 4.71 M/uL (3.86-4.86)
[2019-08-10 05:44] LABS: Magnesium 2.3 mg/dL (1.8-2.4); Potassium 4.3 mmol/L (3.5-5.1)
[2019-08-10 05:49] LABS: Arterial Blood Carboxyhemoglob 1.8 % (0-1.5); Blood Gas Oxyhemoglobin 93.9 % (94-97); Blood O2 Saturation 96.2 % (92-98.5)
[2019-08-10] MEDS: INSULIN -REGULAR HUMAN 50 UNIT/0.5 ML ML SQ SCH ×5 (06:00→23:57)
[2019-08-10] MEDS: VANCOMYCIN 1 GM in NA CHLORIDE 0.9% 250 ML IVPB SCH (06:07)
[2019-08-10] MEDS: ARFORMOTEROL TARTRATE 15 MCG/2 ML VIAL.NEB NEB SCH ×2 (06:40→20:00)
[2019-08-10] MEDS ORDERED: VANCOMYCIN 500 MG in NA CHLORIDE 0.9% 100 ML IVPB ONE (08:15)
--- NOTE | 2019-08-10 08:22 | RAD REPORT ---
EXAM DESCRIPTION: [place] Single View08/10/2019 7:40 am CLINICAL HISTORY: Ventilation/shortness of breath COMPARISON: August 09 FINDINGS: No change in the right upper lobe mass/atelectasis The left lung appears clear of acute infiltrate Endotracheal tube has its tip well above the rl. A central venous line remains in place
[2019-08-10] MEDS: ENOXAPARIN 40 MG/0.4 ML SQ SCH ×2 (09:00→09:22)
[2019-08-10] MEDS: PANTOPRAZOLE 40 MG INJ IVP SCH ×2 (09:22→20:08)
[2019-08-10] MEDS: ASPIRIN 81 MG CHEWABLE TABLET PO SCH (09:22)
[2019-08-10] MEDS: Levofloxacin500mg IV 500 MG/100 ML BAG IV SCH (11:38)
--- NOTE | 2019-08-10 12:01 | P.PN ---
Subjective Date of Service: 08/10/19 Primary Care Provider: From [place], [place] Chief Complaint: Respiratory failure Patient seen and examined with RN. Chart reviewed. Case discussed with nursing staff at bedside along with air crew member. Patient continues to be intubated this morning and sedated. Has been following commands this morning however still not able to be weaned off of ventilator. No events overnight family at bedside. Review of Systems 10-point ROS is otherwise unremarkable Physical Examination - Vital Signs Temperature: 97.5 F Blood Pressure: 167/82 Pulse: 97 Respirations: 21 Pulse Ox (%): 100 - Physical Exam General: In no apparent distress, Other (Sedated and intubated) Respiratory: Normal air movement, Expiratory wheezes, Inspiratory wheezes Cardiovascular: Regular rate/rhythm, Normal S1 S2 Gastrointestinal: Normal bowel sounds, No tenderness Musculoskeletal: No tenderness Integumentary: No rashes Neurological: Normal tone, Normal affect Lymphatics: No axilla or inguinal lymphadenopathy - Studies Microbiology Data (last 24 hrs): 08/08/19 13:10 Blood - Blood Anaerobic Blood Culture - Final Medications List Reviewed: Yes Assessment And Plan - Plan Assessment and plan Toxic encephalopathy Most likely secondary to sepsis This morning continues to be sedated Sepsis with acute respiratory failure White count improved this morning Blood culture sputum cultures negative thus far Currently on vancomycin and Levaquin. Was recently hospitalized thus making hospital-acquired pneumonia high on differential Will continue to monitor repeat CBC and CMP Hemodynamically stable at this time Acute respiratory failure most likely secondary to COPD exacerbation Hypercapnic and hypoxic respiratory failure Currently intubated and sedated. Will wean as tolerated Pulmonology consulted. Appreciated recommendations Duo nebs, steroids Patient also with underlying lung cancer currently on chemotherapy Will monitor closely here in the hospital Patient seen at [facility] in [place] will try to get records from them Acute renal failure likely dehydration with hyperkalemia Nephrology consulted. Continue with IV fluid hydration. Avoid nephrotoxic agents Elevated troponin likely related to sepsis Troponin x2 mildly elevated Cardiology consulted. Appreciated recommendations Echocardiogram within normal limits Hypertension Will provide medication for blood pressure. Maintain blood pressure less than 150 systolic. Tobacco abuse Apparently patient still smokes. This will need to be further addressed during her stay. Disposition: Pending clinical improvement at this time. Will attempt to wean patient off of the ventilator here in the hospital in the next 24 hr. Will continue with IV antibiotics and deescalate once cultures are Discharge Plan: Home Plan to discharge in: Greater than 2 days - Code Status/Comfort Care Code Status Assessed: Yes Critical Care: No
--- NOTE | 2019-08-10 12:06 | P.PN ---
Subjective Date of Service: 08/10/19 Primary Care Provider: From [place], [place] Chief Complaint: Respiratory failure Subjective: Improving (Patient is doing better stable no change) Review of Systems is unable to be obtained Physical Examination - Vital Signs Temperature: 97.5 F Blood Pressure: 167/82 Pulse: 97 Respirations: 21 Pulse Ox (%): 100 - Physical Exam General: Alert, Oriented x3, Mild distress Respiratory: Expiratory wheezes Cardiovascular: No edema, Normal S1 S2 - Studies Microbiology Data (last 24 hrs): 08/08/19 13:10 Blood - Blood Anaerobic Blood Culture - Final Medications List Reviewed: Yes Assessment & Plan - Problems (Diagnosis) (1) Respiratory failure Current Visit: Yes Status: Acute Plan: Patient is 73 years of age with a history of lung cancer admitted with COPD exacerbation respiratory failure been clinically stable plan to wean off and extubate today sputum cultures are so far negative white count is now normal can Dc vancomycin labs reviewed vital signs stable on minimal oxygen Qualifiers: Chronicity: acute on chronic
[2019-08-10] MEDS ORDERED: Levofloxacin500mg IV 500 MG/100 ML BAG IV SCH ×2 (13:00→18:00)
[2019-08-10] MEDS: MIDAZOLAM HCL 2 MG/2 ML INJ IV PRN (14:34)
--- NOTE | 2019-08-10 15:22 | PN ---
Date of Progress Note: 08/10/2019 Ms. Mustafa has been in the hospital since 08/08/2019 with congestive heart failure. She has a histor y of lung cancer. She is intubated, has hypercapnia, elevated troponin. Echocardiogram which was do ne yesterday is normal. Today, she remains intubated. Blood gases have improved. No further cardia c recommendation at this point. I agree with her present regimen. We will sign off her case. RACHELLE/OLI Voice ID: [id number] Report ID: [id number]
--- NOTE | 2019-08-10 15:40 | PN ---
Date of Progress Note: 08/10/2019 Subjective: Patient was admitted with respiratory failure, being intubated, acute kidney injury seco ndary to prerenal. Physical Examination: Vital Signs: Blood pressure 168/82, pulse of 97. Patient had good urine output of 1800, negative of 1 L. Chest: Faint rales on the left. Heart: S1 and S2 regular. Abdomen: Soft, nontender. Extremities: No edema. Laboratory Data: WBC 8.5, H and H of 11.7/35.1, platelets 158. Sodium 140, potassium 4.3, bicarb 32 , BUN 30, creatinine 0.8, calcium 8.4, magnesium 2.3. Current Medications: The patient on include Lovenox, atorvastatin, hydralazine, haloperidol, propofo l, breathing treatment, pantoprazole, Solu-Medrol. Assessment And Plan: 1.Acute kidney injury, normal size kidney, secondary to prerenal, complicated with hyperkalemia, sta tus post contrast exposure back on the 3rd. Kidney function is stable. Keep holding IV fluid curren tly. We will continue to monitor the patient. 2.Hypertension, not controlled. I am going to go ahead and start the patient on low dose of carvedi lol for better blood pressure control and we will follow up the patient. 3.Hyperkalemia, resolved. 4.Chronic obstructive pulmonary disease exacerbation, respiratory failure, as by Pulmonary. SUPA/OLI Voice ID: [id number] Report ID: [id number]
[2019-08-10] MEDS: ATORVASTATIN 40 MG TAB PO SCH (20:07)
[2019-08-10] MEDS: carvediloL 6.25 MG TAB PO SCH (20:07)
[2019-08-11] MEDS: METHYLPREDNISOLONE 40 MG INJ IV SCH ×3 (00:49→18:14)
[2019-08-11] MEDS: IPRATROPIUM BROM 0.5MG/2.5ML NEB SCH ×4 (02:00→19:45)
[2019-08-11] MEDS: MIDAZOLAM HCL 2 MG/2 ML INJ IV PRN ×2 (03:41→20:31)
[2019-08-11] MEDS: FENTANYL CITR 100 MCG/2 ML IV PRN ×3 (04:54→21:49)
[2019-08-11] MEDS: PROPOFOL 1,000 MG/100 ML VIAL IV PRN ×3 (05:15→21:48)
[2019-08-11 05:42] LABS: Absolute Lymphocytes (CBC) 0.3 K/uL (0.7-4.9); Basophils % 0.2 % (0-1.3); Hematocrit 35.8 % (36.0-45.0); Lymphocytes % 4.6 % (15.3-44.8); MPV 8.4 fL (7.6-11.3); RBC Red Blood Cell Count 4.76 M/uL (3.86-4.86)
[2019-08-11] MEDS ORDERED: VANCOMYCIN 1.5 GM in NA CHLORIDE 0.9% 500 ML IVPB SCH (06:00)
[2019-08-11] MEDS: INSULIN -REGULAR HUMAN 50 UNIT/0.5 ML ML SQ SCH ×3 (06:00→18:00)
[2019-08-11 06:04] LABS: BUN Blood Urea Nitrogen 33 mg/dL (7-18); Bicarbonate 34 mmol/L (21-32); Glucose Level 157 mg/dL (74-106); Magnesium 2.3 mg/dL (1.8-2.4); Potassium 4.2 mmol/L (3.5-5.1); Sodium Level 141 mmol/L (136-145)
[2019-08-11] MEDS: ARFORMOTEROL TARTRATE 15 MCG/2 ML VIAL.NEB NEB SCH ×2 (07:46→19:45)
[2019-08-11] MEDS: ENOXAPARIN 40 MG/0.4 ML SQ SCH (10:20)
[2019-08-11] MEDS: Levofloxacin500mg IV 500 MG/100 ML BAG IV SCH (10:21)
[2019-08-11] MEDS: PANTOPRAZOLE 40 MG INJ IVP SCH ×2 (10:21→21:48)
[2019-08-11] MEDS: carvediloL 6.25 MG TAB PO SCH ×2 (10:21→21:49)
[2019-08-11] MEDS: ASPIRIN 81 MG CHEWABLE TABLET PO SCH (10:22)
--- NOTE | 2019-08-11 10:58 | P.PN ---
Subjective Date of Service: 08/11/19 Primary Care Provider: From [place], [place] Chief Complaint: Respiratory failure Subjective: Other (Patient intubated but alert and follows commands. Family at bedside) Physical Examination - Vital Signs Temperature: 97.2 F Blood Pressure: 149/90 Pulse: 85 Respirations: 20 Pulse Ox (%): 100 - Physical Exam General: Alert, Cooperative, Other (Intubated) HEENT: Atraumatic Neck: Supple Respiratory: Clear to auscultation bilaterally, Other (Endotrach tube in place.) Cardiovascular: Normal pulses, Regular rate/rhythm Gastrointestinal: Normal bowel sounds, Soft and benign, Non-distended, No masses , No rebound, No guarding Musculoskeletal: No erythema, No tenderness, No warmth Neurological: Normal strength at 5/5 x4 extr, Normal tone - Studies Medications List Reviewed: Yes Assessment & Plan Discharge Plan: Transfer (to [place]) Plan to discharge in: 24 Hours Physician Review Additional Text: Impression: Toxic encephalopathy with acute on chronic respiratory failure, hypoxia/ hypercapnia, cyanosis with COPD exacerbation complicated with underlying stage IV lung cancer on chemotherapy, possible sepsis Acute renal failure likely dehydration with hyperkalemia Elevated troponin likely related to cardiac stress with possible underlying CAD Hypertension Tobacco abuse Plan: Toxic encephalopathy with acute on chronic respiratory failure, hypoxia, cyanosis with COPD exacerbation complicated with underlying stage IV lung cancer on chemotherapy, possible sepsis: Patient remains in ICU. Patient difficult to wean off ventilator. Case discussed at length with family, patient and pulmonology. Patient and family wish for the patient to be transferred to [facility] where her doctors are at. I left message with her oncologist. Will discuss with Oncology concerning her current condition and plan of care. Hopefully oncology can help expedite transfer process. Patient remains on IV Levaquin to cover for possible sepsis. Will discontinue vancomycin. So far blood cultures negative. Will check pro calcitonin. If negative will discuss with pulmonology about the possibility of discontinuing antibiotic therapy as respiratory failure likely related to COPD. Patient continues with COPD medication. Patient on DVT prophylaxis. Transfer discussed with pulmonology. Patient medically stable for transfer either by air or ground. Will discuss with healthcare social worker and team to initiate transfer. Patient will likely go to [facility] in [place]. Acute renal failure likely dehydration with hyperkalemia: Renal function has improved. Now back to baseline. Hyperkalemia resolved. Nephrology consulted. Elevated troponin likely related to cardiac stress with possible underlying CAD : Echocardiogram unremarkable. Cardiology plans for no intervention at this time. Hypertension: Continue with her medication. Will monitor and adjust appropriately. Tobacco abuse: Apparently patient still smokes. This will need to be further addressed during her stay. Time Spent Managing Pts Care (In Minutes): 55
--- NOTE | 2019-08-11 12:21 | P.PN ---
Subjective Date of Service: 08/11/19 Primary Care Provider: From [place], [place] Chief Complaint: Respiratory failure Pt with severe CODP, admitted for SOB, found to have MALENA Today Cr wnl BP controlled plan for possible transfer Physical Examination - Vital Signs Temperature: 97.2 F Blood Pressure: 149/90 Pulse: 85 Respirations: 20 Pulse Ox (%): 100 - Physical Exam General: Alert, Mild distress HEENT: Atraumatic Neck: Supple, Without JVD or thyroid abnormality Respiratory: Clear to auscultation bilaterally, Normal air movement Cardiovascular: No edema, Regular rate/rhythm, Normal S1 S2, No gallops, No rubs , No murmurs Gastrointestinal: Soft and benign, No ascites - Studies Medications List Reviewed: Yes Assessment And Plan - Plan MALENA Due to prerenal azotemia resolved HTN controlled Sveer COPD cont inhalers, steroids and Abx as per pulmonary Lung Ca will cont to monitor
[2019-08-11] MEDS: LORazepam 2 MG/ML VIAL IV PRN ×2 (13:45→19:38)
--- NOTE | 2019-08-11 15:31 | PN ---
Ms. Mustafa remains intubated, not an extubatable. She has an encephalopathy of some kind. There is a very little change in her overall situation. I do not see her being extubated anytime soon. I thi nk some plans are being made to consider making her do not attempt to resuscitate. I think that prob ably will be appropriate thing to do. I would not disagree with it. CHANEL/OLI Voice ID: [id number] Report ID: [id number]
[2019-08-11 17:22] LABS: Arterial Blood Carboxyhemoglob 1.7 % (0-1.5); Blood Gas Oxyhemoglobin 94.4 % (94-97); Blood O2 Saturation 96.6 % (92-98.5)
[2019-08-11] MEDS: ALBUTEROL 2.5 MG/3 ML NEB SOL NEB PRN (19:45)
[2019-08-11] MEDS: ATORVASTATIN 40 MG TAB PO SCH (21:49)
[2019-08-12] MEDS: METHYLPREDNISOLONE 40 MG INJ IV SCH ×3 (00:28→17:09)
[2019-08-12] MEDS: IPRATROPIUM BROM 0.5MG/2.5ML NEB SCH ×4 (01:30→20:00)
[2019-08-12] MEDS: ALBUTEROL 2.5 MG/3 ML NEB SOL NEB PRN (01:30)
[2019-08-12] MEDS: FENTANYL CITR 100 MCG/2 ML IV PRN ×2 (02:37→12:45)
[2019-08-12] MEDS: LORazepam 2 MG/ML VIAL IV PRN (05:05)
[2019-08-12 05:41] LABS: Absolute Lymphocytes (CBC) 0.3 K/uL (0.7-4.9); Basophils % 0.2 % (0-1.3); Hematocrit 35.1 % (36.0-45.0); MPV 8.7 fL (7.6-11.3); RBC Red Blood Cell Count 4.74 M/uL (3.86-4.86)
[2019-08-12 05:55] LABS: BUN Blood Urea Nitrogen 38 mg/dL (7-18); Bicarbonate 33 mmol/L (21-32); Glucose Level 155 mg/dL (74-106); Magnesium 2.3 mg/dL (1.8-2.4); Potassium 4.2 mmol/L (3.5-5.1); Sodium Level 140 mmol/L (136-145)
[2019-08-12] MEDS: INSULIN -REGULAR HUMAN 50 UNIT/0.5 ML ML SQ SCH ×3 (06:00→12:00)
[2019-08-12] MEDS: PROPOFOL 1,000 MG/100 ML VIAL IV PRN (06:04)
[2019-08-12] MEDS: ARFORMOTEROL TARTRATE 15 MCG/2 ML VIAL.NEB NEB SCH ×2 (07:42→20:00)
--- NOTE | 2019-08-12 08:06 | P.DS ---
Admission Date: 08/08/19 Discharge Date: 08/12/19 Primary Care Provider: From [place], [place] Disposition[facility] Discharge Condition: GOOD Reason for Admission: Respiratory failure Consultations: Pulmonary-Dr. Rose Cardiology-Dr. Long Nephrology-Dr. Snow Procedures: CT Head: FINDINGS: No intracranial hemorrhage, hydrocephalus or extra-axial fluid collection.No areas of brain edema or evidence of midline shift. The paranasal sinuses and mastoids are clear. The calvarium is intact. IMPRESSION: No acute intracranial abnormality. CT Chest: FINDINGS: No evidence of pulmonary thromboembolism. No acute aortic finding demonstrated. Prominent emphysema is seen with a dense consolidation involving the right apex , likely neoplastic in etiology. There is erosive changes of the right first rib with soft tissue extending superiorly through the superior margin of right thoracic cage into the region of the right-sided scalene musculature. Mild edema is present in this region inflammatory fat stranding and fluid seen in the right axilla. Loss of the normal fat planes about the right axilla and superior posterior scapular margin noted. Pancoast tumor is felt to be most likely. ET tube tip is above the rl. Enteric tube is seen extending into the stomach. IMPRESSION: No evidence of pulmonary thromboembolism. COPD with large right-sided Pancoast tumor suspected ECHO: EF 60-69% LEFT VENTRICULAR WALL MOTION: NORMAL DOPPLER/COLOR FLOW: IMPAIRED LEFT VENTRICULAR RELAXATION. COMMENTS: NORMAL LEFT VENTRICULAR EJECTION FRACTION, MITRAL ANNULAR CALCIFICATION. OTHERWISE NORMAL 2-DIMENSIONAL ECHOCARDIOGRAM BUT STUDY WAS TECHNICALLY DIFFICULT. IMPAIRED LEFT VENTRICULAR RELAXATION. Renal US: COMPARISON: No comparisons FINDINGS: Both kidneys are normal in size, shape and echotexture. The right kidney measures 10.3 x 5.1 x 4.5 cm. No hydronephrosis, focal mass or perinephric fluid. The left kidney measures 10.2 x 5.1 x 4.2 cm. No hydronephrosis, focal mass or perinephric fluid. Dorsey catheter decompresses the urinary bladder. IMPRESSION: Unremarkable renal sonogram. Venous doppler: FINDINGS: Normal compressibility, flow augmentation, phasic flow and spontaneous flow is identified in both the left and right lower extremity deep venous systems. IMPRESSION: No sonographic evidence of left or right lower extremity deep venous thrombosis. Follow up CXR: COMPARISON: August 09 FINDINGS: No change in the right upper lobe mass/atelectasis The left lung appears clear of acute infiltrate Endotracheal tube has its tip well above the rl. A central venous line remains in place Medical Problem List: Toxic encephalopathy secondary to acute on chronic respiratory failure with hypoxia/hypercapnia/cyanosis likely related to COPD exacerbation complicated with underlying stage IV lung cancer on chemotherapy, possible sepsis Acute renal failure likely dehydration with hyperkalemia Elevated troponin likely related to cardiac stress with possible underlying CAD Hypertension Tobacco abuse Brief History of Present Illness: 73-year-old female with history of lung lung cancer, COPD, tobacco abuse on chemotherapy. Most of the information came from the nurse and ER physician. Patient is originally from [facility]. She has been getting most of her care in [facility] at [facility]. Patient was brought in by EMS due to increasing shortness of breath. Apparently she had called 911. By the time EMS arrived she was having difficulty breathing. EMS was not capable to perform intubation in the field as they were not equipped. She was brought to the ER for further evaluation thereafter. Patient appeared hypoxic and cyanotic upon arrival. Patient likely hypoxic for more than 20 min as the patient came from [place], [place]. She was visiting the area. In the ER patient was intubated. Patient appeared in respiratory failure. Initial white count 16.8, hemoglobin 12.8. Sodium 141, potassium 5.2. BUN of 28, creatinine 1.49 with a GFR of 34. Glucose 291. Troponin 0.06. Lactic acid elevated. Pro calcitonin pending. BNP greater than 2000. Urinalysis unremarkable. Drug screen positive for benzodiazepine. Alcohol level unremarkable. CT head unremarkable. CT chest showed prominent emphysema with dense consolidation in the right apex likely neoplastic in etiology especially in light of her history. There is erosive changes to the right 1st rib with soft tissue extending superiorly through the superior margin of the right thoracic cage in to the region of the right sided scalene musculature. Mild edema is present in the region. Pancoast tumor likely. No evidence of pulmonary embolism noted. COPD changes noted. Patient currently stable at this time. She is intubated. I was asked to admit the patient for further evaluation and treatment. Patient will go to ICU. When I saw the patient in the ER, she was intubated and sedated. Her color was much improved. Patient responding to pain and stimulation. Family not present at this time. Patient with left-sided Port-A-Cath. Hospital Course: Patient presented with altered mental status and shortness of breath. Patient was brought in by EMS. Patient appeared hypoxic, hypercapnic and cyanotic. Patient was intubated in the emergency room. Toxic encephalopathy with acute on chronic respiratory failure was suspected. This was likely related to COPD exacerbation complicated with underlying stage IV lung cancer recently on chemotherapy. Sepsis was also evaluated. Patient was sent to the ICU. Patient remained intubated. Patient continue with IV antibiotic therapy and COPD treatment. CT chest shows no pulmonary embolism. No acute aortic finding demonstrated. Prominent emphysema is seen with a dense consolidation involving the right apex likely related to her lung cancer. Erosive changes of the 1st rib with soft tissue extending superiorly through the superior margin of the right thoracic cage into the region of the right sided scalene muscle noted. Venous Doppler of the lower extremity unremarkable for DVT. Follow up X-ray shows right upper lobe of lung mass with atelectasis. ET tube in place. Pulmonology was consulted to further address her respiratory condition. Patient has had difficulty in weaning off ventilator. Patient remains sedated. Family reported that she had been hospitalized multiple times recently for COPD exacerbation. She gets all of her medical care at [facility] in [facility]. Family desired transferred to [facility] to be with her team of doctors including pulmonary, oncology and internal medicine. Transfer initiation was started. Anticipate transfer to [place] today. Patient remains intubated. So far blood cultures negative. Sputum culture unremarkable. Follow up x-ray remained stable. Patient remains on IV Levaquin, IV Solu-Medrol and COPD medication. Case discussed at length with pulmonology. Patient medically stable for transfer. Patient also evaluated by Cardiology due to slight elevation in her troponin. This remained stable. Echocardiogram unremarkable. No further intervention required at this time. Patient had acute renal failure likely from dehydration with hyperkalemia. Nephrology was consulted. Patient continued with IV fluid hydration. Renal function has improved back to baseline. Hyperkalemia resolved. Renal ultrasound unremarkable. Patient with history of hypertension. Patient continues on blood pressure medication-carvedilol. Blood pressure stable at this time. Further adjustment may be required. Patient with hyperlipidemia. Patient will continue with Lipitor. Patient with history of tobacco abuse. Tobacco cessation will be addressed in detail considering her COPD and lung cancer. This can be further addressed by her team of doctors in [place]. Vital Signs/Physical Exam: Temp Pulse Resp BP Pulse Ox 97 F 61 14 127/76 100 08/12/19 04:00 08/12/19 07:00 08/12/19 07:00 08/12/19 07:00 08/12/19 07:00 General: Other (Patient remained sedated and intubated.) HEENT: Atraumatic Neck: Supple Respiratory: Clear to auscultation bilaterally, Other (Patient intubated) Cardiovascular: Normal pulses, Regular rate/rhythm Gastrointestinal: Normal bowel sounds, Soft and benign, Non-distended Neurological: Other (Patient remains sedated at this time.) Laboratory Data at Discharge: WBC 7.4 K/uL (4.3-10.9) 08/12/19 05:15 Hgb 11.7 g/dL (12.0-15.0) L 08/12/19 05:15 Hct 35.1 % (36.0-45.0) L 08/12/19 05:15 Plt Count 165 K/uL (152-406) 08/12/19 05:15 PT 10.9 SECONDS (9.5-12.5) 08/08/19 12:50 INR 0.92 08/08/19 12:50 APTT 18.6 SECONDS (24.3-36.9) L 08/08/19 15:00 Sodium 140 mmol/L (136-145) 08/12/19 05:15 Potassium 4.2 mmol/L (3.5-5.1) 08/12/19 05:15 BUN 38 mg/dL (7-18) H 08/12/19 05:15 Creatinine 0.57 mg/dL (0.55-1.3) 08/12/19 05:15 Glucose 155 mg/dL (74-106) H 08/12/19 05:15 Magnesium 2.3 mg/dL (1.8-2.4) 08/12/19 05:15 Troponin I 0.06 ng/mL (0.0-0.045) H 08/09/19 04:40 Triglycerides 137 mg/dL (<150) 08/09/19 04:40 Cholesterol 137 mg/dL (<200) 08/09/19 04:40 HDL Cholesterol 44 mg/dL (40-60) 08/09/19 04:40 Cholesterol/HDL Ratio 3.11 08/09/19 04:40 Patient Discharge Instructions: Patient to be transferred to [facility] in [facility] for continuity of care and to be closer to home. Patient medically stable at this time to be discharged by transport. Patient remains sedated and intubated. Diet: NPO Activity: Bedrest Time spent managing pt's care (in minutes): 55
--- NOTE | 2019-08-12 08:13 | RAD REPORT ---
EXAM DESCRIPTION: RAD - Chest Single View - 08/12/2019 6:27 am CLINICAL HISTORY: follow up resp. failure Chest pain. COMPARISON: Chest Single View dated 08/10/2019; Chest Single View dated 08/09/2019; Chest Single View dated 08/08/2019 FINDINGS: Portable technique limits examination quality. Opacification of the right apex is again seen, unchanged. Left lung is emphysematous. The heart is no rmal in size. Tip of the ET tube is above the rl. Enteric tube descends in the stomach. Left-side d port catheter its tip in the SVC region.
[2019-08-12] MEDS: carvediloL 6.25 MG TAB PO SCH ×2 (08:25→20:59)
[2019-08-12] MEDS: ASPIRIN 81 MG CHEWABLE TABLET PO SCH (08:25)
[2019-08-12] MEDS: ENOXAPARIN 40 MG/0.4 ML SQ SCH (08:25)
[2019-08-12] MEDS: PANTOPRAZOLE 40 MG INJ IVP SCH (08:25)
--- NOTE | 2019-08-12 11:00 | P.PN ---
Subjective Date of Service: 08/13/19 Primary Care Provider: From [place], [place] Chief Complaint: Respiratory failure Patient's condition is stable unable to wean the patient off the ventilator patient very agitated request transfer to call with station currently she has been intubated twice before over there appears to have severe COPD with pablo cords tumor on the right side copious secretions Review of Systems is unable to be obtained Physical Examination - Vital Signs Temperature: 97 F Blood Pressure: 135/85 Pulse: 73 Respirations: 17 Pulse Ox (%): 99 - Physical Exam General: Alert, Moderate distress Respiratory: Expiratory wheezes Cardiovascular: No edema, Normal S1 S2 - Studies Medications List Reviewed: Yes Assessment & Plan - Problems (Diagnosis) (1) Respiratory failure Current Visit: Yes Status: Acute Plan: Patient admitted with respiratory failure she has been treated for a right upper lobe for non-small cell cancer copious secretions patient very agitated request transfer to call at also receiving some chemotherapy prognosis is very poor no evidence of sepsis chemistries reviewed vital signs stable mild microcytic anemia continue to wean start tube feeds add scheduled Atrovent also some Diamox cultures negative chest x-ray no change Qualifiers: Chronicity: acute on chronic Physician Review Additional Text: I
[2019-08-12] MEDS ORDERED: WATER FOR INJ,STERILE 10 ML IV SCH (12:00)
[2019-08-12] MEDS: ACETAZOLAMIDE 500 MG IV IV SCH (12:05)
[2019-08-12] MEDS: Levofloxacin500mg IV 500 MG/100 ML BAG IV SCH (12:05)
[2019-08-12] MEDS ORDERED: VITAL HP 1,000 ML BOT RTH SCH (17:00)
[2019-08-12] MEDS: ATORVASTATIN 40 MG TAB PO SCH (20:59)
[2019-08-13] MEDS: METHYLPREDNISOLONE 40 MG INJ IV SCH (00:57)
[2019-08-13] MEDS: IPRATROPIUM BROM 0.5MG/2.5ML NEB SCH ×3 (01:40→14:00)
--- NOTE | 2019-08-13 01:55 | PN ---
Date of Progress Note: 08/12/2019 Chief Complaint: Acute kidney injury. History Of Present Illness: Patient developed prerenal azotemia. She responded to IV fluids. Renal function stabilized. Patient remains intubated. Patient has severe COPD and developed acute on chr onic respiratory failure. Review of Systems: Patient cannot provide review of systems. She is intubated. Physical Examination: Lungs: Clear to auscultation bilaterally. Heart: S1, S2. Abdomen: Soft. Extremities: Minimal e lauren in both ankles. Impression And Plan: 1.Acute kidney injury due to prerenal azotemia, resolved. Continue adequate hydration with IV fluid s as needed. Patient remains on ventilator. 2.Hypertension, controlled. 3.Chronic obstructive pulmonary disease exacerbation per Pulmonary. 4.History of lung cancer. Patient will continue care with Pulmonary Service. MARCELO/MODL Voice ID: [id number] Report ID: [id number]
[2019-08-13 05:57] VITALS: BMI 28.6
[2019-08-13 06:23] LABS: Magnesium 2.3 mg/dL (1.8-2.4); Potassium 3.9 mmol/L (3.5-5.1)
[2019-08-13 06:38] LABS: Absolute Lymphocytes (CBC) 0.3 K/uL (0.7-4.9); Basophils % 0.2 % (0-1.3); Hematocrit 38.2 % (36.0-45.0); Lymphocytes % 3.2 % (15.3-44.8); MPV 9.1 fL (7.6-11.3); RBC Red Blood Cell Count 5.11 M/uL (3.86-4.86)
[2019-08-13] MEDS: ARFORMOTEROL TARTRATE 15 MCG/2 ML VIAL.NEB NEB SCH (07:35)
[2019-08-13 08:05] VITALS: O2SAT 99
[2019-08-13 08:48] LABS: Blood Morphology Comment NOT SEEN (NOT SEEN); Platelet Estimate ADEQ; Urine White Blood Cell Casts OK
--- NOTE | 2019-08-13 08:55 | P.PN ---
Subjective Date of Service: 08/13/19 Primary Care Provider: From [place], [place] Chief Complaint: Respiratory failure Subjective: Doing well (Patient doing well this time. Patient was extubated yesterday.) Physical Examination - Vital Signs Temperature: 98.2 F Blood Pressure: 167/75 Pulse: 76 Respirations: 20 Pulse Ox (%): 100 - Physical Exam General: Alert, In no apparent distress, Oriented x3, Cooperative HEENT: Atraumatic Neck: Supple Respiratory: Expiratory wheezes (Mild bilateral) Cardiovascular: Normal pulses, Regular rate/rhythm Gastrointestinal: Normal bowel sounds, Soft and benign, Non-distended, No masses , No rebound, No guarding Musculoskeletal: No erythema, No tenderness, No warmth Integumentary: No tenderness/swelling, No erythema, No warmth, No cyanosis Neurological: Normal speech, Normal strength at 5/5 x4 extr, Normal tone, Normal affect - Studies Medications List Reviewed: Yes Assessment & Plan Discharge Plan: Home Plan to discharge in: 24 Hours Physician Review Additional Text: Impression: Toxic encephalopathy with acute on chronic respiratory failure, hypoxia/ hypercapnia, cyanosis with COPD exacerbation complicated with underlying stage IV lung cancer on chemotherapy, possible sepsis Acute renal failure likely dehydration with hyperkalemia Elevated troponin likely related to cardiac stress with possible underlying CAD Hypertension Tobacco abuse Hypothyroidism Depression with anxiety Restless leg syndrome Plan: Toxic encephalopathy with acute on chronic respiratory failure, hypoxia, cyanosis with COPD exacerbation complicated with underlying stage IV lung cancer on chemotherapy, possible sepsis: Patient has done well. She was extubated last night. No significant shortness of breath this morning. Patient on nasal cannula. No need for transfer to [facility] at this time as the patient has significantly improved. Will transfer patient to the floor. Will have physical therapy assess ambulation. Will adjust medications to oral. Continue with COPD medication. Will transition IV Levaquin to oral. Will discuss with pulmonology. Probable discharge as early as later today or tomorrow. Will reassess patient later today. If the patient remains in the hospital, I will be off the service this weekend. Dr. Rose will continue to monitor and cover the patient. Acute renal failure likely dehydration with hyperkalemia: Renal function has improved. Now back to baseline. Hyperkalemia resolved. Nephrology consulted. Elevated troponin likely related to cardiac stress with possible underlying CAD : Echocardiogram unremarkable. Cardiology plans for no intervention at this time. Hypertension: Continue with medication. Will monitor and adjust appropriately. Tobacco abuse: Apparently patient still smokes. This will need to be further addressed during her stay. Hypothyroidism: Continue with medication Depression with anxiety: Continue with medication. Restless leg syndrome: Will continue with her medication Time Spent Managing Pts Care (In Minutes): 55
[2019-08-13] MEDS ORDERED: PRAMIPEXOLE 0.25 MG TAB PO SCH (09:00)
[2019-08-13] MEDS ORDERED: predniSONE 20 MG TAB PO SCH (09:00)
[2019-08-13] MEDS ORDERED: levoFLOXacin 500 MG TAB PO SCH (09:00)
[2019-08-13] MEDS ORDERED: BUPROPION HCL XL 150 MG TAB PO SCH (09:00)
[2019-08-13] MEDS: ENOXAPARIN 40 MG/0.4 ML SQ SCH (09:04)
[2019-08-13] MEDS: ASPIRIN 81 MG CHEWABLE TABLET PO SCH (09:05)
[2019-08-13] MEDS: carvediloL 6.25 MG TAB PO SCH (09:05)
[2019-08-13] MEDS: ACETAZOLAMIDE 500 MG IV IV SCH (09:05)
[2019-08-13] MEDS: PRAMIPEXOLE 0.25 MG TAB PO SCH ×2 (09:06→14:43)
--- NOTE | 2019-08-13 11:35 | RAD REPORT ---
EXAM DESCRIPTION: RAD - Chest Pa And Lat (2 Views) - 08/13/2019 11:28 am CLINICAL HISTORY: follow up extubation, COPD Chest pain. COMPARISON: Chest Single View dated 08/12/2019; Chest Single View dated 08/10/2019; Chest Single View dated 08/09/2019; Chest Single View dated 08/08/2019 FINDINGS: The left lung is emphysematous. Right apical opacification is unchanged. The ET tube and e nteric tube has been removed. Left-sided port catheter tip is in the SVC. The heart is normal in size .
--- NOTE | 2019-08-13 11:53 | P.PN ---
Subjective Date of Service: 08/13/19 Primary Care Provider: From [place], [place] Chief Complaint: Respiratory failure Subjective: Improving Pt with severe CODP, admitted for SOB, found to have MALENA required intubation, now extubated Today feels better Agree to remove hernández cleared for discharge from nephrology point of view Physical Examination - Vital Signs Temperature: 97 F Blood Pressure: 111/92 Pulse: 102 Respirations: 22 Pulse Ox (%): 100 - Physical Exam General: In no apparent distress, Oriented x3 HEENT: Atraumatic Respiratory: Diminished Cardiovascular: No edema, Regular rate/rhythm, Normal S1 S2, No gallops, No rubs , No murmurs Gastrointestinal: Normal bowel sounds, Soft and benign, No ascites Integumentary: No rashes - Studies Medications List Reviewed: Yes Assessment And Plan - Plan MALENA Due to prerenal azotemia resolved HTN controlled Severe COPD now extubated cont inhalers, steroids and Abx as per pulmonary Lung Ca F/U with oncology as an Op Physician Review Additional Text: I
--- NOTE | 2019-08-13 13:41 | P.DS ---
Admission Date: 08/08/19 Discharge Date: 08/13/19 Primary Care Provider: From [place], [place] Disposition: ROUTINE DISCHARGE Discharge Condition: GOOD Reason for Admission: Respiratory failure Consultations: Pulmonary-Dr. Rose Nephrology-Dr. Ellison Procedures: CT Head: FINDINGS: No intracranial hemorrhage, hydrocephalus or extra-axial fluid collection.No areas of brain edema or evidence of midline shift. The paranasal sinuses and mastoids are clear. The calvarium is intact. IMPRESSION: No acute intracranial abnormality. CT chest: FINDINGS: No evidence of pulmonary thromboembolism. No acute aortic finding demonstrated. Prominent emphysema is seen with a dense consolidation involving the right apex , likely neoplastic in etiology. There is erosive changes of the right first rib with soft tissue extending superiorly through the superior margin of right thoracic cage into the region of the right-sided scalene musculature. Mild edema is present in this region inflammatory fat stranding and fluid seen in the right axilla. Loss of the normal fat planes about the right axilla and superior posterior scapular margin noted. Pancoast tumor is felt to be most likely.ET tube tip is above the rl. Enteric tube is seen extending into the stomach. IMPRESSION: No evidence of pulmonary thromboembolism. COPD with large right-sided Pancoast tumor suspected Renal US: COMPARISON: No comparisons FINDINGS: Both kidneys are normal in size, shape and echotexture. The right kidney measures 10.3 x 5.1 x 4.5 cm. No hydronephrosis, focal mass or perinephric fluid. The left kidney measures 10.2 x 5.1 x 4.2 cm. No hydronephrosis, focal mass or perinephric fluid. Dorsey catheter decompresses the urinary bladder. IMPRESSION: Unremarkable renal sonogram. Venous doppler: FINDINGS: Normal compressibility, flow augmentation, phasic flow and spontaneous flow is identified in both the left and right lower extremity deep venous systems. IMPRESSION: No sonographic evidence of left or right lower extremity deep venous thrombosis. ECHO: EF 60% LEFT VENTRICULAR WALL MOTION: NORMAL DOPPLER/COLOR FLOW: IMPAIRED LEFT VENTRICULAR RELAXATION. COMMENTS: NORMAL LEFT VENTRICULAR EJECTION FRACTION, MITRAL ANNULAR CALCIFICATION. OTHERWISE NORMAL 2-DIMENSIONAL ECHOCARDIOGRAM BUT STUDY WAS TECHNICALLY DIFFICULT. IMPAIRED LEFT VENTRICULAR RELAXATION Medical Problem List: Metabolic encephalopathy with acute on chronic respiratory failure, hypoxia/ hypercapnia, cyanosis with COPD exacerbation complicated with underlying stage IV lung cancer on chemotherapy Acute renal failure likely dehydration with hyperkalemia Elevated troponin likely related to cardiac stress with possible underlying CAD Hypertension Tobacco abuse Hypothyroidism Depression with anxiety Restless leg syndrome Brief History of Present Illness: 73-year-old female with history of lung lung cancer, COPD, tobacco abuse on chemotherapy. Most of the information came from the nurse and ER physician. Patient is originally from [facility]. She has been getting most of her care in [facility] at [facility]. Patient was brought in by EMS due to increasing shortness of breath. Apparently she had called 911. By the time EMS arrived she was having difficulty breathing. EMS was not capable to perform intubation in the field as they were not equipped. She was brought to the ER for further evaluation thereafter. Patient appeared hypoxic and cyanotic upon arrival. Patient likely hypoxic for more than 20 min as the patient came from [place], [place]. She was visiting the area. In the ER patient was intubated. Patient appeared in respiratory failure. Initial white count 16.8, hemoglobin 12.8. Sodium 141, potassium 5.2. BUN of 28, creatinine 1.49 with a GFR of 34. Glucose 291. Troponin 0.06. Lactic acid elevated. Pro calcitonin pending. BNP greater than 2000. Urinalysis unremarkable. Drug screen positive for benzodiazepine. Alcohol level unremarkable. CT head unremarkable. CT chest showed prominent emphysema with dense consolidation in the right apex likely neoplastic in etiology especially in light of her history. There is erosive changes to the right 1st rib with soft tissue extending superiorly through the superior margin of the right thoracic cage in to the region of the right sided scalene musculature. Mild edema is present in the region. Pancoast tumor likely. No evidence of pulmonary embolism noted. COPD changes noted. Patient currently stable at this time. She is intubated. I was asked to admit the patient for further evaluation and treatment. Patient will go to ICU. When I saw the patient in the ER, she was intubated and sedated. Her color was much improved. Patient responding to pain and stimulation. Family not present at this time. Patient with left-sided Port-A-Cath. Hospital Course: Patient presented with altered mental status and shortness of breath. Patient was brought in by EMS. Patient appeared hypoxic, hypercapnic and cyanotic. Patient was intubated in the emergency room. Metabolic encephalopathy with acute on chronic respiratory failure noted. This was likely related to COPD exacerbation complicated with underlying stage IV lung cancer recently on chemotherapy. Sepsis was evaluated and ruled out. Transferred to [facility] was initiated to be with her team of doctors. There was no capacity at the [facility]. Patient was eventually extubated. Patient has done well since that time. Patient without significant shortness of breath. CT chest shows no pulmonary embolism. No acute aortic finding demonstrated. Prominent emphysema is seen with a dense consolidation involving the right apex likely related to her lung cancer. Erosive changes of the 1st rib with soft tissue extending superiorly through the superior margin of the right thoracic cage into the region of the right sided scalene muscle noted. Venous Doppler of the lower extremity unremarkable for DVT. Echocardiogram unremarkable. Follow up X-ray shows right upper lobe of lung mass with atelectasis. Pulmonary was consulted and helped with her progress. Patient stable for discharge at this time. Patient will go home on prednisone 20 mg 1 pill twice daily for 5 days then 1 pill once daily for 5 days. Patient will then continue with her maintenance dose of prednisone. Patient takes chronic steroids. This should be weaned down over time. This can be further addressed by her survey operations director in [place]. Patient will continue her home medications for COPD including Brovana 1 unit dose twice daily and albuterol/ Atrovent 1 unit dose 3 times a day as needed for shortness of breath. Patient will continue with home oxygen to maintain sats above 93%. Patient will follow up in [place] with her team of physicians at [facility]. Recommend follow up within 1 week to follow up this hospitalization. Patient also evaluated by Cardiology due to slight elevation in her troponin. This remained stable. Echocardiogram unremarkable. No further intervention required at this time. Patient had acute renal failure likely from dehydration with hyperkalemia. Nephrology was consulted. Patient continued with IV fluid hydration with improvement. Renal function has improved back to baseline. Hyperkalemia resolved. Renal ultrasound unremarkable. Patient with history of hypertension. This has remained stable. At discharge she will continue with metoprolol ER 25 mg daily. Blood pressure stable at this time. Patient with history of hypothyroidism. At discharge she will continue with her medication levothyroxine 0.125 mg 2 pills daily. Patient with history of depression and anxiety. At discharge she will continue with her medication Wellbutrin XL 150 mg daily. Patient with history of restless leg syndrome. At discharge she will continue with her medication Mirapex 0.25 mg 1 pill 3 times a day. Vital Signs/Physical Exam: Temp Pulse Resp BP Pulse Ox 97 F 102 H 22 H 111/92 H 100 08/13/19 11:52 08/13/19 11:52 08/13/19 11:52 08/13/19 11:52 08/13/19 11:52 General: Alert, In no apparent distress, Oriented x3, Cooperative HEENT: Atraumatic Neck: Supple Respiratory: Clear to auscultation bilaterally, Normal air movement Cardiovascular: Normal pulses, Regular rate/rhythm Gastrointestinal: Normal bowel sounds, Soft and benign, Non-distended, No tenderness, No masses, No rebound, No guarding Musculoskeletal: No erythema, No tenderness, No warmth Integumentary: No tenderness/swelling, No erythema, No warmth, No cyanosis Neurological: Normal speech, Normal strength at 5/5 x4 extr, Normal tone, Normal affect Laboratory Data at Discharge: WBC 9.8 K/uL (4.3-10.9) D 08/13/19 05:25 Hgb 12.5 g/dL (12.0-15.0) 08/13/19 05:25 Hct 38.2 % (36.0-45.0) 08/13/19 05:25 Plt Count 158 K/uL (152-406) 08/13/19 05:25 PT 10.9 SECONDS (9.5-12.5) 08/08/19 12:50 INR 0.92 08/08/19 12:50 APTT 18.6 SECONDS (24.3-36.9) L 08/08/19 15:00 Sodium 142 mmol/L (136-145) 08/13/19 05:25 Potassium 3.9 mmol/L (3.5-5.1) 08/13/19 05:25 BUN 35 mg/dL (7-18) H 08/13/19 05:25 Creatinine 0.67 mg/dL (0.55-1.3) 08/13/19 05:25 Glucose 131 mg/dL (74-106) H 08/13/19 05:25 Magnesium 2.3 mg/dL (1.8-2.4) 08/13/19 05:25 Troponin I 0.06 ng/mL (0.0-0.045) H 08/09/19 04:40 Triglycerides 137 mg/dL (<150) 08/09/19 04:40 Cholesterol 137 mg/dL (<200) 08/09/19 04:40 HDL Cholesterol 44 mg/dL (40-60) 08/09/19 04:40 Cholesterol/HDL Ratio 3.11 08/09/19 04:40 Home Medications: Albuterol Neb [Proventil 0.083% Neb Soln] 3 ml IH Q4H PRN 08/13/19 Arformoterol Tartrate [Brovana] 15 mcg IH BID 08/13/19 Bupropion *Xl* [Wellbutrin XL*] 150 mg PO DAILY 08/13/19 Ipratropium/Albuterol Sulfate [Iprat-Albut 0.5-3(2.5) mg/3 ml] 3 ml IH Q4H PRN 08/13/19 Levothyroxine [Synthroid*] 2 tab PO [id number] 08/13/19 Metoprolol Succinate 25 mg PO DAILY 08/13/19 Pramipexole [Mirapex*] 0.25 mg PO TID 08/13/19 Sodium Chloride For Inhalation [Nebusal] 1 vial IH BID 08/13/19 predniSONE [Prednisone*] 2 tab PO DAILY 08/13/19 predniSONE [Prednisone*] 20 mg PO SEECOM #15 tab 08/13/19 New Medications: predniSONE [Prednisone*] 20 mg PO SEECOM #15 tab Patient Discharge Instructions: 1. Recommend follow up with her PCP in 1 week to follow up this hospitalization. 2. Patient presented with altered mental status and shortness of breath. Patient was brought in by EMS. Patient appeared hypoxic, hypercapnic and cyanotic. Patient was intubated in the emergency room. Metabolic encephalopathy with acute on chronic respiratory failure noted. This was likely related to COPD exacerbation complicated with underlying stage IV lung cancer recently on chemotherapy. Sepsis was evaluated and ruled out. Transferred to [facility] was initiated to be with her team of doctors. There was no capacity at the [facility]. Patient was eventually extubated. Patient has done well since that time. Patient without significant shortness of breath. CT chest shows no pulmonary embolism. No acute aortic finding demonstrated. Prominent emphysema is seen with a dense consolidation involving the right apex likely related to her lung cancer. Erosive changes of the 1st rib with soft tissue extending superiorly through the superior margin of the right thoracic cage into the region of the right sided scalene muscle noted. Venous Doppler of the lower extremity unremarkable for DVT. Echocardiogram unremarkable. Follow up X-ray shows right upper lobe of lung mass with atelectasis. Pulmonary was consulted and helped with her progress. Patient stable for discharge at this time. Patient will go home on prednisone 20 mg 1 pill twice daily for 5 days then 1 pill once daily for 5 days. Patient will then continue with her maintenance dose of prednisone. Patient takes chronic steroids. This should be weaned down over time. This can be further addressed by her survey operations director in [place]. Patient will continue her home medications for COPD including Brovana 1 unit dose twice daily and albuterol/Atrovent 1 unit dose 3 times a day as needed for shortness of breath. Patient will continue with home oxygen to maintain sats above 93%. Patient will follow up in [place] with her team of physicians at [facility]. Recommend follow up within 1 week to follow up this hospitalization. 3. Patient also evaluated by Cardiology due to slight elevation in her troponin. This remained stable. Echocardiogram unremarkable. No further intervention required at this time. 4. Patient had acute renal failure likely from dehydration with hyperkalemia. Nephrology was consulted. Patient continued with IV fluid hydration with improvement. Renal function has improved back to baseline. Hyperkalemia resolved. Renal ultrasound unremarkable. 5. Patient with history of hypertension. This has remained stable. At discharge she will continue with metoprolol ER 25 mg daily. Blood pressure stable at this time. 6. Patient with history of hypothyroidism. At discharge she will continue with her medication levothyroxine 0.125 mg 2 pills daily. 7. Patient with history of depression and anxiety. At discharge she will continue with her medication Wellbutrin XL 150 mg daily. 8. Patient with history of restless leg syndrome. At discharge she will continue with her medication Mirapex 0.25 mg 1 pill 3 times a day. Diet: AHA Activity: Ad mavis Time spent managing pt's care (in minutes): 55
--- NOTE | 2019-08-13 14:20 | P.PN ---
Subjective Date of Service: 08/13/19 Primary Care Provider: From [place], [place] Chief Complaint: COPD exacerbation Patient was extubated yesterday doing much better wants to go home patient does take Brovana and nebulize bronchodilators at home and is compliant she has lung cancer and has her doctors in [place] Review of Systems Unremarkable Respiratory: Cough, Shortness of Breath Physical Examination - Vital Signs Temperature: 97.9 F Blood Pressure: 111/65 Pulse: 96 Respirations: 18 Pulse Ox (%): 98 - Physical Exam General: Alert, Oriented x3 Respiratory: Clear to auscultation bilaterally, Diminished - Studies Microbiology Data (last 24 hrs): 08/08/19 13:10 Blood - Blood Aerobic Blood Culture - Final No growth in 5 days. 08/08/19 13:10 Blood - Blood Anaerobic Blood Culture - Final 08/08/19 12:50 Blood - Blood Aerobic Blood Culture - Final No growth in 5 days. 08/08/19 12:50 Blood - Blood Anaerobic Blood Culture - Final No growth in 5 days. Medications List Reviewed: Yes Assessment & Plan - Problems (Diagnosis) (1) COPD exacerbation Current Visit: Yes Status: Acute Plan: Patient is 73 years of age admitted with COPD exacerbation is no evidence of active ongoing sepsis patient has lung cancer and is actively receiving chemotherapy from [facility] doctors in [place] she is doing much better wants to be discharged home patient is clinically stable advice to resume Brovana and Q wire at home and uses nebulizers as needed in addition to prednisone 10 mg twice a day and the dose to be adjusted by her pulmonologistCultures and negative apart from yeast vital signs in oxygenation stable patient satisfactory for discharge I have advised her to consider ear using long-acting bronchodilators with anticholinergics in steroids Physician Review Additional Text: I
[2019-08-13 17:44] VITALS: BP 160/84; TEMP 98.1
[2019-08-14] MEDS ORDERED: LEVOTHYROXINE SOD 0.125 MG TAB PO SCH (06:00)
--- OUTSIDE RECORDS SUMMARY | 2019-08-15 20:20 | XMS REPORT | Continuity of Care Document ---
:1945 Author Organization [facility] Address [address] [place] [address] Care Team Providers Name Role Phone DENNYS HIDALGO & Primary Care Physician Mannie Kirby III Physician Marco Coburn Admitting Physician Marco Coburn Attending Physician Dariel Jacobs Rounding Physician Allergies, Adverse Reactions, Alerts Allergen Type Severity Reaction Last Updated Verified Status aspirin Allergy April 14, 2019 Y Active Penicillins Allergy April 14, 2019 Y Active Medications Active Medications Medication Dose Units Route Sig Qty Days Start Discontinued Status Instructions Date Date Levothyroxine 125 MCG PO Daily April Active Sodium 2018 Pantoprazole 40 MG PO Daily Iza Active 2018 Pramipexole 0.25 MG PO Three April Active Di-Hcl Times 8, Daily 2018 Amoxicillin/Po 875 MG PO Twice 14 April Active tassium Clav Daily 2018 Prednisone 20 MG PO Every 15 April Active Take 2 tabs Mornin 12, po daily x 5 g With 2019 days then 1 Breakf tab po daily ast x 5 days Discontinued Medications Medication Dose Units Route Sig Qty Days Start Discontinued Status Instructions Date Date Prednisone 10 MG PO Twice Iza April 16, 2019 Discontinu Daily 8, ed 2019 Problem List Active Problems Medical Problem Onset Date Status Acute respiratory failure with hypoxia Active Tobacco abuse Active Lung cancer Active COPD exacerbation Active Procedures Procedure Date Status XR Chest 1 View Portable April 15, 2019 completed XR Chest 1 View Portable April 14, 2019 completed XR Chest 1 View Portable April 13, 2019 completed XR Chest 1 View Portable April 12, 2019 completed Urine Culture April 11, 2019 completed US Venous Doppler Rt Unilat April 11, 2019 completed XR Chest 1 View Portable April 11, 2019 completed EKG 12 Lead in Emergency Room April 11, 2019 completed Relevant Diagnostic Tests and/or Laboratory Data Laboratory Results Test Date/Time Result Interp. Ref. Range Result Comment Sodium Level April 15, 2019 141 mmol/L 136-145 5:28am Potassium Level April 15, 2019 4.1 mmol/L 3.5-5.1 5:28am Chloride Level April 15, 2019 100 mmol/L 98-107 5:28am Carbon Dioxide Level April 15, 2019 33 mmol/L High 23-31 5:28am Anion Gap April 15, 2019 12 mmol/L 10-20 5:28am Blood Urea Nitrogen April 15, 2019 27 mg/dL High 9.8-20.1 5:28am Creatinine April 15, 2019 0.81 mg/dL 0.6-1.1 5:28am Estimated GFR (MDRD) April 15, 2019 70 Reference Range for Estimated GFR: 5:28am Greater than 90 mL/min/1.73 m2 NOTE: The MDRD equation has not been validated for use with the elderly (over 70 years of age), women, patients with serious comorbid condition or persons with extremes of body size, muscle mass, or nutritional status. Glucose Level April 15, 2019 170 mg/dL High 83-110 5:28am Calcium Level April 15, 2019 9.3 mg/dL 7.8-10.44 5:28am Total Bilirubin April 11, 2019 0.2 mg/dL 0.2-1.2 7:23am Serum Total Protein April 11, 2019 5.9 g/dL Low 6.0-8.3 7:23am Albumin April 11, 2019 3.4 g/dL 3.4-4.8 7:23am Globulin April 11, 2019 2.5 g/dL 2.4-3.5 7:23am Albumin/Globulin Ratio April 11, 2019 1.4 g/dL 1.2-2.2 7:23am Alkaline Phosphatase April 11, 2019 111 U/L 40-150 7:23am Aspartate Amino Transf April 11, 2019 143 U/L High 5-34 (AST/SGOT) 7:23am Creatine Kinase April 11, 2019 50 U/L 29-168 7:23am Troponin I April 11, 2019 0.022 ng/mL Reference Range 7:23am 0.00 - 0.028 ng/mL Negative 0.029 - 0.29 ng/mL Indeterminate Greater or Equal to 0.3 ng/mL Strongly suggests [place] Alanine April 11, 2019 89 U/L High 8-55 Aminotransferase 7:23am (ALT/SGPT) B-Type Natriuretic April 11, 2019 229.7 pg/mL High 0-100 Peptide 7:23am White Blood Count April 15, 2019 9.3 thou/uL 4.8-10.8 5:28am Red Blood Count April 15, 2019 5.06 mill/uL 4.20-5.40 5:28am Hemoglobin April 15, 2019 12.9 g/dL 12.0-16.0 5:28am Hematocrit April 15, 2019 40.7 % 36.0-47.0 5:28am Mean Corpuscular April 15, 2019 80.4 fL 78.0-98.0 Volume 5:28am Mean Corpuscular April 15, 2019 25.6 pg Low 27.0-31.0 Hemoglobin 5:28am Mean Corpuscular April 15, 2019 31.8 g/dL Low 32.0-36.0 Hemoglobin Concent 5:28am Red Cell Distribution April 15, 2019 17.1 % High 11.5-14.5 Width 5:28am Platelet Count April 15, 2019 196 thou/uL 130-400 5:28am Mean Platelet Volume April 15, 2019 8.9 fL 7.4-10.4 5:28am Neutrophils % April 11, 2019 88.1 % High 42.0-75.0 7:23am Lymphocytes % April 11, 2019 7.5 % Low 21.0-51.0 7:23am Monocytes % April 11, 2019 3.6 % 0.0-10.0 7:23am Eosinophils % April 11, 2019 0.8 % 0.0-10.0 7:23am Basophils % April 11, 2019 0.0 % 0.0-1.0 7:23am Neutrophils # April 11, 2019 11.1 thou/uL High 1.40-6.50 7:23am Lymphocytes # April 11, 2019 1.0 thou/uL Low 1.20-3.40 7:23am Monocytes # April 11, 2019 0.5 thou/uL 0.11-0.59 7:23am Eosinophils # April 11, 2019 0.1 thou/uL 0.0-0.7 7:23am Basophils # April 11, 2019 0.0 thou/uL 0.0-0.2 7:23am Neutrophils % (Manual) April 15, 2019 89 % High 42-75 5:28am Band Neutrophils % April 15, 2019 1 % Low 5-11 (Manual) 5:28am Lymphocytes % (Manual) April 15, 2019 6 % Low 21-51 5:28am Reactive Lymphocytes % April 15, 2019 4 % 0-10 5:28am Monocytes % (Manual) April 14, 2019 2 % 0-10 6:52am Myelocytes % April 13, 2019 1 % High 0-0 3:54am Polychromasia April 15, 2019 SLIGHT=2-3 5:28am cells (100X) Red Cell Morphology April 14, 2019 Normal Comment 6:52am Arterial Blood pH April 14, 2019 7.47 High 7.35-7.45 3:30am Arterial Blood Partial April 14, 2019 39.8 mmHg 35.0-45.0 Pressure CO2 3:30am Arterial Blood Partial April 14, 2019 99.9 mmHg High Pressure O2 3:30am Blood Gas Bicarbonate April 14, 2019 28.6 mEq/L High 22-28 Actual 3:30am Arterial Blood Base April 14, 2019 4.7 mEq/L High -2.0-3.0 Excess 3:30am ABG O2 Saturation April 14, 2019 98.3 % High 94.0-98.0 Calc/Measured 3:30am Arterial Blood April 14, 2019 37.0 % 36.0-47.0 Hematocrit 3:30am Arterial Blood April 14, 2019 12.5 g/dL 12.0-16.0 Hemoglobin 3:30am Arterial Blood April 14, 2019 96.9 % 94.0-98.0 Oxyhemoglobin 3:30am Arterial Blood April 14, 2019 1.1 gm% 0.0-3.0 Carboxyhemoglobin 3:30am Arterial Blood April 14, 2019 0.30 gm% 0.04-1.52 Methemoglobin 3:30am Arterial Blood April 12, 2019 1.0 % 0.0-2.9 Deoxyhemoglobin 7:30am Arterial Blood Oxygen April 14, 2019 17.2 vol% Low 18.0-21.0 Content 3:30am Alveolar-arterial April 14, 2019 64.250 High 0-20 Oxygen Gradient 3:30am Sodium (Blood Gas) April 14, 2019 138 mmol/L 135-148 3:30am Potassium (Blood Gas) April 14, 2019 3.90 mmol/L 3.70-5.30 3:30am Chloride (Blood Gas) April 14, 2019 102 mmol/L 98-106 3:30am Ionized Calcium (Blood April 14, 2019 1.09 mmol/L Low 1.12-1.30 Gas) 3:30am Blood Gas Specimen April 14, 2019 ART Type 3:30am Blood Gas Puncture April 14, 2019 RRA Site 3:30am Stuart Test April 14, 2019 POSITIVE 3:30am Blood Gas Mechanical April 14, 2019 16 min Rate 3:30am Blood Gas Tidal Volume April 14, 2019 500 ml 3:30am Blood Gas PEEP or CPAP April 14, 2019 5.0 cmH2O 3:30am Blood Gas Pressure April 14, 2019 10 cmH2O Support 3:30am Blood Gas Inspired April 14, 2019 30 % Oxygen 3:30am Blood Gas Mode of April 14, 2019 SIMV Support 3:30am Microbiology Results Procedure Source Result Collection Date/Time Result Date/Time Urine Culture Urine voided NO GROWTH AT 48 April 11, 2019 7:43am HOURS Chief Complaint and Reason for Visit Encounter Admit Date Chief Complaint Reason for Visit Discharged Inpatient April 11, 2019 RESP FAILURE, LUNG CA Acute respiratory failure with hypoxia 10:28am Acute exacerbation of chronic obstructive pulmonary disease Malignant Neoplasm of Lung Tobacco Abuse Hospital Discharge Instructions No known hospital discharge instructions. Hospital Discharge Medications Medication Dose Units Route Sig Qty Days Order Status Instructions Date Levothyroxine 125 MCG PO Daily April 12, Active Sodium 2018 Pantoprazole 40 MG PO Daily April 12, Active 2019 Pramipexole 0.25 MG PO Three Times April 12, Active Di-Hcl Daily 2018 Prednisone 10 MG PO Twice Daily April 12, Discontinued 2018 Amoxicillin/Pot 875 MG PO Twice Daily 14 April Active assium Clav 2018 Prednisone 20 MG PO Every 15 April Active Take 2 tabs Morning 12, po daily x 5 With 2019 days then 1 Breakfast tab po daily x 5 days Encounters Encounter Facility Location Admit Date Discharge Date [facility] [address] [facility] 2019 3:11pm Ctr 10:28am Encounter Diagnosis Onset Date Acute respiratory failure with hypoxia Acute exacerbation of chronic obstructive pulmonary disease Malignant Neoplasm of Lung Tobacco Abuse Functional Status No known functional status. Immunizations No known immunizations. 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[employer] Medicare ZEINAB [id number] SELF ZEINAB [id number] [facility] Part A JUAN ALBERTO AVENDANO Plan of Care Instructions Chronic Obstructive Pulmonary Disease Exacerbation Acute Respiratory Failure, Adult FOCUS: Transition from Acute Care after Discharge GOAL: Successful transition to care in the community YOUR TASKS: (1) review all information outlined in your discharge packet (2) follow any instructions outlined in your discharge packet (3) contact your primary care provider if you have questions or need additional assistance Social History Query Response Date Recorded Comment Smoking Status Current some day smoker April 11, 2019 3:49pm Vital Signs Vital Reading Result Reference Range Collection Date/Time Height 1.65 m April 16, 2019 2:58pm Weight 76.81 kg April 16, 2019 2:58pm Temperature 97.9 F 97.6 F-99.6 F April 16, 2019 2:55pm Pulse 100 BPM 60-100 April 16, 2019 2:55pm Respiration 20 RPM 12-20 April 16, 2019 2:55pm Pulse Oximetry 95 % 95-100 April 16, 2019 2:55pm Blood Pressure Systolic 131 90-140 April 16, 2019 2:55pm Blood Pressure Diastolic 72 60-90 April 16, 2019 2:55pm Body Mass Index 28.1 April 16, 2019 2:58pm
--- OUTSIDE RECORDS SUMMARY | 2019-08-15 20:20 | XMS REPORT | Continuity of Care Document ---
:[address] [facility] Address [address] [place] [address] Care Team Providers Name Role Phone DENNYS HIDALGO & Primary Care Physician Mannie Kirby III Rounding Physician Dariel Jacobs Rounding Physician Marco Coburn Admitting Physician Marco Coburn Attending Physician Allergies, Adverse Reactions, Alerts Allergy history unobtainable. Medications No medication information available. Problem List No problem information available. Procedures Procedure Date Status XR Chest 1 View Portable April 18, 2019 active XR Chest 1 View Portable April 17, 2019 active XR Chest 1 View Portable April 16, 2019 active XR Chest 1 View Portable April 15, 2019 active XR Chest 1 View Portable April 14, 2019 active XR Chest 1 View Portable April 13, 2019 active XR Chest 1 View Portable April 12, 2019 active US Venous Doppler Rt Unilat April 11, 2019 active XR Chest 1 View Portable April 11, 2019 completed EKG 12 Lead in Emergency Room April 11, 2019 active Relevant Diagnostic Tests and/or Laboratory Data Laboratory Results Test Date/Time Result Interp. Ref. Range Result Comment Sodium Level April 11, 2019 138 mmol/L 136-145 7:23am Potassium Level April 11, 2019 4.2 mmol/L 3.5-5.1 7:23am Chloride Level April 11, 2019 104 mmol/L 98-107 7:23am Carbon Dioxide Level April 11, 2019 25 mmol/L 23-31 7:23am Anion Gap April 11, 2019 13 mmol/L 10-20 7:23am Blood Urea Nitrogen April 11, 2019 21 mg/dL High 9.8-20.1 7:23am Creatinine April 11, 2019 0.87 mg/dL 0.6-1.1 7:23am Estimated GFR (MDRD) April 11, 2019 64 Reference Range for Estimated GFR: 7:23am Greater than 90 mL/min/1.73 m2 NOTE: The MDRD equation has not been validated for use with the elderly (over 70 years of age), women, patients with serious comorbid condition or persons with extremes of body size, muscle mass, or nutritional status. Glucose Level April 11, 2019 233 mg/dL High 83-110 7:23am Calcium Level April 11, 2019 8.7 mg/dL 7.8-10.44 7:23am Total Bilirubin April 11, 2019 0.2 mg/dL [...] 2019 143 U/L High 5-34 (AST/SGOT) 7:23am Troponin I April 11, 2019 0.022 ng/mL Reference Range 7:23am 0.00 - 0.028 ng/mL Negative 0.029 - 0.29 ng/mL Indeterminate Greater or Equal to 0.3 ng/mL Strongly suggests [place] Alanine April 11, 2019 89 U/L High 8-55 Aminotransferase 7:23am (ALT/SGPT) B-Type Natriuretic April 11, 2019 229.7 pg/mL High 0-100 Peptide 7:23am White Blood Count April 11, 2019 12.6 thou/uL High 4.8-10.8 7:23am Red Blood Count April 11, 2019 4.67 mill/uL 4.20-5.40 7:23am Hemoglobin April 11, 2019 12.2 g/dL 12.0-16.0 7:23am Hematocrit April 11, 2019 39.0 % 36.0-47.0 7:23am Mean Corpuscular April 11, 2019 83.4 fL 78.0-98.0 Volume 7:23am Mean Corpuscular April 11, 2019 26.2 pg Low 27.0-31.0 Hemoglobin 7:23am Mean Corpuscular April 11, 2019 31.4 g/dL Low 32.0-36.0 Hemoglobin Concent 7:23am Red Cell Distribution April 11, 2019 17.2 % High 11.5-14.5 Width 7:23am Platelet Count April 11, 2019 230 thou/uL 130-400 7:23am Mean Platelet Volume April 11, 2019 8.3 fL 7.4-10.4 7:23am Neutrophils % April 11, 2019 88.1 % [...] April 11, 2019 0.0 thou/uL 0.0-0.2 7:23am Arterial Blood pH April 11, 2019 7.40 7.35-7.45 7:32am Arterial Blood Partial April 11, 2019 41.1 mmHg 35.0-45.0 Pressure CO2 7:32am Arterial Blood Partial April 11, 2019 127.8 mmHg High Pressure O2 7:32am Blood Gas Bicarbonate April 11, 2019 24.7 mEq/L 22-28 Actual 7:32am Arterial Blood Base April 11, 2019 -0.2 mEq/L -2.0-3.0 Excess 7:32am ABG O2 Saturation April 11, 2019 98.0 % 94.0-98.0 Calc/Measured 7:32am Arterial Blood April 11, 2019 38.0 % 36.0-47.0 Hematocrit 7:32am Arterial Blood April 11, 2019 13.0 g/dL 12.0-16.0 Hemoglobin 7:32am Arterial Blood April 11, 2019 93.7 % Low 94.0-98.0 Oxyhemoglobin 7:32am Arterial Blood April 11, 2019 3.7 gm% High 0.0-3.0 Carboxyhemoglobin 7:32am Arterial Blood April 11, 2019 0.70 gm% 0.04-1.52 Methemoglobin 7:32am Arterial Blood April 11, 2019 1.9 % 0.0-2.9 Deoxyhemoglobin 7:32am Arterial Blood Oxygen April 11, 2019 17.3 vol% Low 18.0-21.0 Content 7:32am Alveolar-arterial April 11, 2019 20.465 High 0-20 Oxygen Gradient 7:32am Sodium (Blood Gas) April 11, 2019 138 mmol/L 135-148 7:32am Potassium (Blood Gas) April 11, 2019 4.06 mmol/L 3.70-5.30 7:32am Chloride (Blood Gas) April 11, 2019 105 mmol/L 98-106 7:32am Ionized Calcium (Blood April 11, 2019 1.19 mmol/L 1.12-1.30 Gas) 7:32am Blood Gas Specimen April 11, 2019 ARTERIAL Type 7:32am Blood Gas Puncture April 11, 2019 LRA Site 7:32am Stuart Test April 11, 2019 NOT DONE 7:32am Blood Gas Mechanical April 11, 2019 24 min Rate 7:32am Blood Gas Tidal Volume April 11, 2019 500 ml 7:32am Blood Gas PEEP or CPAP April 11, 2019 5.0 cmH2O 7:32am Blood Gas Pressure April 11, 2019 10 cmH2O Support 7:32am Blood Gas Inspired April 11, 2019 28 % Oxygen 7:32am Blood Gas Mode of April 11, 2019 SIMV/PS Support 7:32am Chief Complaint and Reason for Visit Encounter Admit Date Chief Complaint Reason for Visit Admitted Inpatient April 11, 2019 10:28am RESP FAILURE, LUNG CA Hospital Discharge Instructions No known hospital discharge instructions. Encounters Encounter Facility Location Admit Date Discharge Date Attending Provider Admitted [facility] April 11, [place] C[facility] 10:28am Functional Status No known functional status. Immunizations No known immunizations. Payers Payer Name Policy Type Covered Covered Relationship Subscriber Subscriber Alliance Party Alliance Party Id Id PROFESSIONAL Commercial FEE MEDICARE Medicare Part ZEINAB [id number] SELF ZEINAB A DEVENS A DEVENS Plan of Care No known plan of care. Social History No known social history. Vital Signs Vital Reading Result Reference Range Collection Date/Time Height n/a Weight 77.6 kg April 11, 2019 7:31am Temperature n/a Pulse 91 BPM 60-100 April 11, 2019 10:43am Respiration n/a Pulse Oximetry n/a Blood Pressure Systolic 142 90-140 April 11, 2019 10:43am Blood Pressure Diastolic 75 60-90 April 11, 2019 10:43am Body Mass Index n/a
--- OUTSIDE RECORDS SUMMARY | 2019-08-15 20:21 | XMS REPORT ---
:1945 [facility] [address] [place] [id number] Care Team Providers Name Role Phone REKHA, POLLO Harshil Unavailable Unavailable Problems This patient has no known problems. Allergies, Adverse Reactions, Alerts This patient has no known allergies or adverse reactions. Medications This patient has no known medications. Results Test Description Test Time Test Comments Text Results Atomic Results Result Comments Hematology 2019-04-15 07:08:00 Test Item Value Reference Range Comments Hematology (test code=WBCT) 9.3 thou/uL 4.8-10.8 Hematology (test code=RBCT) 5.06 mill/uL 4.20-5.40 Hematology (test code=HGBT) 12.9 g/dL 12.0-16.0 Hematology (test code=HCTT) 40.7 % 36.0-47.0 Hematology (test code=MCV) 80.4 fL 78.0-98.0 Hematology (test code=MCH) 25.6 pg 27.0-31.0 Hematology (test code=MCHC) 31.8 g/dL 32.0-36.0 Hematology (test code=RDW) 17.1 % 11.5-14.5 Hematology (test code=PLTT) 196 thou/uL 130-400 Hematology (test code=MPV) 8.9 fL 7.4-10.4 Hematology (test code=NE) 89 % 42-75 Hematology (test code=BA) 1 % 5-11 Hematology (test code=LY) 6 % 21-51 Hematology (test code=HARRISON) 4 % 0-10 Hematology (test code=POLY) SLIGHT=2-3 cells (100X) 0-2/hpf [id number] 06:09:00 Test Item Value Reference Range Comments Chemistry (test code=NA-T) 141 mmol/L 136-145 Chemistry (test code=K-T) 4.1 mmol/L 3.5-5.1 Chemistry (test code=CL) 100 mmol/L 98-107 Chemistry (test code=CO2) 33 mmol/L 23-31 Chemistry (test code=ANGP) 12 mmol/L 10-20 Chemistry (test code=BUN) 27 mg/dL 9.8-20.1 Chemistry (test code=CREATT) 0.81 mg/dL 0.6-1.1 Chemistry (test 70 Reference Range for Estimated code=EGFRMDRD) GFR: Greater than 90 mL/min/1.73 m2NOTE:The MDRD equation has not been validated for use with theelderly (over 70 years of age), women, patientswith serious comorbid condition or persons with extremes ofbody size, muscle mass, or nutritional status. Chemistry (test code=GLU-T) 170 mg/dL 83-110 Chemistry (test code=CA) 9.3 mg/dL 7.8-10.44 [id number] 07:57:00 Test Item Value Reference Range Comments Hematology (test code=WBCT) 8.9 thou/uL 4.8-10.8 Hematology (test code=RBCT) 4.85 mill/uL 4.20-5.40 Hematology (test code=HGBT) 12.4 g/dL 12.0-16.0 Hematology (test code=HCTT) 39.4 % 36.0-47.0 Hematology (test code=MCV) 81.2 fL 78.0-98.0 Hematology (test code=MCH) 25.6 pg 27.0-31.0 Hematology (test code=MCHC) 31.5 g/dL 32.0-36.0 Hematology (test code=RDW) 17.0 % 11.5-14.5 Hematology (test code=PLTT) 184 thou/uL 130-400 Hematology (test code=MPV) 8.8 fL 7.4-10.4 Hematology (test code=NE) 95 % 42-75 Hematology (test code=BA) 1 % 5-11 Hematology (test code=LY) 2 % 21-51 Hematology (test code=MO) 2 % 0-10 Hematology (test code=MC) Normal [id number] 07:30:00 Test Item Value Reference Range Comments Chemistry (test code=NA-T) 139 mmol/L 136-145 Chemistry (test code=K-T) 4.0 mmol/L 3.5-5.1 Chemistry (test code=CL) 101 mmol/L 98-107 Chemistry (test code=CO2) 28 mmol/L 23-31 Chemistry (test code=ANGP) 14 mmol/L 10-20 Chemistry (test code=BUN) 25 mg/dL 9.8-20.1 Chemistry (test code=CREATT) 0.73 mg/dL 0.6-1.1 Chemistry (test 79 Reference Range for Estimated code=EGFRMDRD) GFR: Greater than 90 mL/min/1.73 m2NOTE:The MDRD equation has not been validated for use with theelderly (over 70 years of age), women, patientswith serious comorbid condition or persons with extremes ofbody size, muscle mass, or nutritional status. Chemistry (test code=GLU-T) 186 mg/dL 83-110 Chemistry (test code=CA) 8.6 mg/dL 7.8-10.44 ABG's - [id number] 05:37:00 Test Item Value Reference Range Comments ABG's - Cardiopulmonary (test code=pHa) 7.47 7.35-7.45 ABG's - Cardiopulmonary (test code=PaCO2) 39.8 mmHg 35.0-45.0 ABG's - Cardiopulmonary (test code=PaO2) 99.9 mmHg > 70.0 ABG's - Cardiopulmonary (test code=HCO3a) 28.6 mEq/L 22-28 ABG's - Cardiopulmonary (test code=Brandan) 4.7 mEq/L 2.0 to +3.0 ABG's - Cardiopulmonary (test code=SaO2M) 98.3 % 94.0-98.0 ABG's - Cardiopulmonary (test code=Hct) 37.0 % 36.0-47.0 ABG's - Cardiopulmonary (test code=Hb) 12.5 g/dL 12.0-16.0 ABG's - Cardiopulmonary (test code=O2HB) 96.9 % 94.0-98.0 ABG's - Cardiopulmonary (test code=COHb) 1.1 gm% 0.0-3.0 ABG's - Cardiopulmonary (test code=METHb) 0.30 gm% 0.04-1.52 ABG's - Cardiopulmonary (test code=CaO2) 17.2 vol% 18.0-21.0 ABG's - Cardiopulmonary (test code=Aa) 64.250 0-20 ABG's - Cardiopulmonary (test code=Na) 138 mmol/L 135-148 ABG's - Cardiopulmonary (test code=K1) 3.90 mmol/L 3.70-5.30 ABG's - Cardiopulmonary (test code=Cl) 102 mmol/L 98-106 ABG's - Cardiopulmonary (test code=Ca) 1.09 mmol/L 1.12-1.30 ABG's - Cardiopulmonary (test code=BLUE) ART ABG's - Cardiopulmonary (test code=SITE) RRA ABG's - Cardiopulmonary (test code=MODALL) POSITIVE ABG's - Cardiopulmonary (test code=RATE) 16 min ABG's - Cardiopulmonary (test code=VOL) 500 ml ABG's - Cardiopulmonary (test code=PEEP) 5.0 cmH2O ABG's - Cardiopulmonary (test code=PRESS) 10 cmH2O ABG's - Cardiopulmonary (test code=FIO2) 30 % ABG's - Cardiopulmonary (test code=MODE) SIMV Culture, [id number] 09:49:00 Test Item Value Reference Range Comments Culture, Urine (test code=URC) NG48 ABG's - [id number] 07:22:00 Test Item Value Reference Range Comments ABG's - Cardiopulmonary (test code=pHa) 7.43 7.35-7.45 ABG's - Cardiopulmonary (test code=PaCO2) 42.9 mmHg 35.0-45.0 ABG's - Cardiopulmonary (test code=PaO2) 106.7 mmHg > 70.0 ABG's - Cardiopulmonary (test code=HCO3a) 28.0 mEq/L 22-28 ABG's - Cardiopulmonary (test code=Brandan) 3.4 mEq/L 2.0 to +3.0 ABG's - Cardiopulmonary (test code=SaO2M) 98.0 % 94.0-98.0 ABG's - Cardiopulmonary (test code=Hct) 36.0 % 36.0-47.0 ABG's - Cardiopulmonary (test code=Hb) 12.4 g/dL 12.0-16.0 ABG's - Cardiopulmonary (test code=COHb) 0.9 gm% 0.0-3.0 ABG's - Cardiopulmonary (test code=METHb) 0.30 gm% 0.04-1.52 ABG's - Cardiopulmonary (test code=CaO2) 17.0 vol% 18.0-21.0 ABG's - Cardiopulmonary (test code=Aa) 53.575 0-20 ABG's - Cardiopulmonary (test code=Na) 139 mmol/L 135-148 ABG's - Cardiopulmonary (test code=K1) 3.80 mmol/L 3.70-5.30 ABG's - Cardiopulmonary (test code=Cl) 104 mmol/L 98-106 ABG's - Cardiopulmonary (test code=Ca) 1.14 mmol/L 1.12-1.30 ABG's - Cardiopulmonary (test code=BLUE) ARTERIAL ABG's - Cardiopulmonary (test code=SITE) RRA ABG's - Cardiopulmonary (test code=MODALL) POSITIVE ABG's - Cardiopulmonary (test code=RATE) 16 min ABG's - Cardiopulmonary (test code=VOL) 500 ml ABG's - Cardiopulmonary (test code=PEEP) 5.0 cmH2O ABG's - Cardiopulmonary (test code=PRESS) 10 cmH2O ABG's - Cardiopulmonary (test code=FIO2) 30 % ABG's - Cardiopulmonary (test code=MODE) SIMV.PSV [id number] 05:07:00 Test Item Value Reference Range Comments Hematology (test code=WBCT) 6.6 thou/uL 4.8-10.8 Hematology (test code=RBCT) 4.53 mill/uL 4.20-5.40 Hematology (test code=HGBT) 11.8 g/dL 12.0-16.0 Hematology (test code=HCTT) 36.8 % 36.0-47.0 Hematology (test code=MCV) 81.3 fL 78.0-98.0 Hematology (test code=MCH) 26.1 pg 27.0-31.0 Hematology (test code=MCHC) 32.1 g/dL 32.0-36.0 Hematology (test code=RDW) 16.9 % 11.5-14.5 Hematology (test code=PLTT) 192 thou/uL 130-400 Hematology (test code=MPV) 8.9 fL 7.4-10.4 Hematology (test code=NE) 87 % 42-75 Hematology (test code=BA) 5 % 5-11 Hematology (test code=LY) 4 % 21-51 Hematology (test code=MO) 3 % 0-10 Hematology (test code=MY) 1 % 0-0 [id number] 04:36:00 Test Item Value Reference Range Comments Chemistry (test code=NA-T) 140 mmol/L 136-145 Chemistry (test code=K-T) 3.8 mmol/L 3.5-5.1 Chemistry (test code=CL) 105 mmol/L 98-107 Chemistry (test code=CO2) 27 mmol/L 23-31 Chemistry (test code=ANGP) 12 mmol/L 10-20 Chemistry (test code=BUN) 25 mg/dL 9.8-20.1 Chemistry (test code=CREATT) 0.76 mg/dL 0.6-1.1 Chemistry (test 75 Reference Range for Estimated code=EGFRMDRD) GFR: Greater than 90 mL/min/1.73 m2NOTE:The MDRD equation has not been validated for use with theelderly (over 70 years of age), women, patientswith serious comorbid condition or persons with extremes ofbody size, muscle mass, or nutritional status. Chemistry (test code=GLU-T) 208 mg/dL 83-110 Chemistry (test code=CA) 8.9 mg/dL 7.8-10.44 ABG's - [id number] 08:18:00 Test Item Value Reference Range Comments ABG's - Cardiopulmonary (test code=pHa) 7.39 7.35-7.45 ABG's - Cardiopulmonary (test code=PaCO2) 43.7 mmHg 35.0-45.0 ABG's - Cardiopulmonary (test code=PaO2) 141.3 mmHg > 70.0 ABG's - Cardiopulmonary (test code=HCO3a) 25.6 mEq/L 22-28 ABG's - Cardiopulmonary (test code=Brandan) 0.4 mEq/L 2.0 to +3.0 ABG's - Cardiopulmonary (test code=SaO2M) 99.0 % 94.0-98.0 ABG's - Cardiopulmonary (test code=Hct) 35.0 % 36.0-47.0 ABG's - Cardiopulmonary (test code=Hb) 11.8 g/dL 12.0-16.0 ABG's - Cardiopulmonary (test code=O2HB) 97.8 % 94.0-98.0 ABG's - Cardiopulmonary (test code=COHb) 0.9 gm% 0.0-3.0 ABG's - Cardiopulmonary (test code=METHb) 0.30 gm% 0.04-1.52 ABG's - Cardiopulmonary (test code=HHB) 1.0 % 0.0-2.9 ABG's - Cardiopulmonary (test code=CaO2) 16.5 vol% 18.0-21.0 ABG's - Cardiopulmonary (test code=Aa) 89.275 0-20 ABG's - Cardiopulmonary (test code=Na) 138 mmol/L 135-148 ABG's - Cardiopulmonary (test code=K1) 4.05 mmol/L 3.70-5.30 ABG's - Cardiopulmonary (test code=Cl) 104 mmol/L 98-106 ABG's - Cardiopulmonary (test code=Ca) 1.13 mmol/L 1.12-1.30 ABG's - Cardiopulmonary (test code=BLUE) ARTERIAL ABG's - Cardiopulmonary (test code=SITE) RRA ABG's - Cardiopulmonary (test code=MODALL) POSITIVE ABG's - Cardiopulmonary (test code=RATE) 16 min ABG's - Cardiopulmonary (test code=VOL) 500 ml ABG's - Cardiopulmonary (test code=PEEP) 5.0 cmH2O ABG's - Cardiopulmonary (test code=PRESS) 10 cmH2O ABG's - Cardiopulmonary (test code=FIO2) 40 % ABG's - Cardiopulmonary (test code=MODE) SIMV.PSV [id number] 05:09:00 Test Item Value Reference Range Comments Hematology (test code=WBCT) 7.8 thou/uL 4.8-10.8 Hematology (test code=RBCT) 4.11 mill/uL 4.20-5.40 Hematology (test code=HGBT) 10.8 g/dL 12.0-16.0 Hematology (test code=HCTT) 33.8 % 36.0-47.0 Hematology (test code=MCV) 82.3 fL 78.0-98.0 Hematology (test code=MCH) 26.2 pg 27.0-31.0 Hematology (test code=MCHC) 31.9 g/dL 32.0-36.0 Hematology (test code=RDW) 17.0 % 11.5-14.5 Hematology (test code=PLTT) 202 thou/uL 130-400 Hematology (test code=MPV) 8.2 fL 7.4-10.4 Hematology (test code=NE) 80 % 42-75 Hematology (test code=BA) 10 % 5-11 Hematology (test code=LY) 7 % 21-51 Hematology (test code=HARRISON) 1 % 0-10 Hematology (test code=MO) 2 % 0-10 [id number] 05:08:00 Test Item Value Reference Range Comments Chemistry (test code=NA-T) 138 mmol/L 136-145 Chemistry (test code=K-T) 4.0 mmol/L 3.5-5.1 Chemistry (test code=CL) 104 mmol/L 98-107 Chemistry (test code=CO2) 27 mmol/L 23-31 Chemistry (test code=ANGP) 11 mmol/L 10-20 Chemistry (test code=BUN) 22 mg/dL 9.8-20.1 Chemistry (test code=CREATT) 0.76 mg/dL 0.6-1.1 Chemistry (test 75 Reference Range for Estimated code=EGFRMDRD) GFR: Greater than 90 mL/min/1.73 m2NOTE:The MDRD equation has not been validated for use with theelderly (over 70 years of age), women, patientswith serious comorbid condition or persons with extremes ofbody size, muscle mass, or nutritional status. Chemistry (test code=GLU-T) 152 mg/dL 83-110 Chemistry (test code=CA) 8.3 mg/dL 7.8-10.44 [id number] 16:32:00 Test Item Value Reference Range Comments Chemistry (test code=CK) 50 U/L 29-168 Chemistry - BNP, HgbA1c, [id number] 08:19:00 Test Item Value Reference Range Comments Chemistry - BNP, HgbA1c, PTHi (test code=BNP) 229.7 pg/mL 0-100 [id number] 08:06:00 Test Item Value Reference Range Comments Chemistry (test 0.022 ng/mL < 0.028 code=TROPI-R) Reference Range 0.00 - 0.028 ng/mL Negative 0.029 - 0.29 ng/mL Indeterminate Greater or Equal to 0.3 ng/mL Strongly suggests [place] Tscytrtlm1399-09-15 08:01:00 Test Item Value Reference Range Comments Chemistry (test code=NA-T) 138 mmol/L 136-145 Chemistry (test code=K-T) 4.2 mmol/L 3.5-5.1 Chemistry (test code=CL) 104 mmol/L 98-107 Chemistry (test code=CO2) 25 mmol/L 23-31 Chemistry (test code=ANGP) 13 mmol/L 10-20 Chemistry (test code=BUN) 21 mg/dL 9.8-20.1 Chemistry (test code=CREATT) 0.87 mg/dL 0.6-1.1 Chemistry (test 64 Reference Range for Estimated code=EGFRMDRD) GFR: Greater than 90 mL/min/1.73 m2NOTE:The MDRD equation has not been validated for use with theelderly (over 70 years of age), women, patientswith serious comorbid condition or persons with extremes ofbody size, muscle mass, or nutritional status. Chemistry (test code=GLU-T) 233 mg/dL 83-110 Chemistry (test code=CA) 8.7 mg/dL 7.8-10.44 Chemistry (test 0.2 mg/dL 0.2-1.2 code=TBILI-T) Chemistry (test code=TP) 5.9 g/dL 6.0-8.3 Chemistry (test code=ALB) 3.4 g/dL 3.4-4.8 Chemistry (test code=GLOB) 2.5 g/dL 2.4-3.5 Chemistry (test code=AG) 1.4 g/dL 1.2-2.2 Chemistry (test code=ALP) 111 U/L 40-150 Chemistry (test code=AST) 143 U/L 5-34 Chemistry (test code=ALT) 89 U/L 8-55 ABG's - Hvlfkhxhnqxgpni1809-65-96 07:54:00 Test Item Value Reference Range Comments ABG's - Cardiopulmonary (test code=pHa) 7.40 7.35-7.45 ABG's - Cardiopulmonary (test code=PaCO2) 41.1 mmHg 35.0-45.0 ABG's - Cardiopulmonary (test code=PaO2) 127.8 mmHg > 70.0 ABG's - Cardiopulmonary (test code=HCO3a) 24.7 mEq/L 22-28 ABG's - Cardiopulmonary (test code=Brandan) -0.2 mEq/L 2.0 to +3.0 ABG's - Cardiopulmonary (test code=SaO2M) 98.0 % 94.0-98.0 ABG's - Cardiopulmonary (test code=Hct) 38.0 % 36.0-47.0 ABG's - Cardiopulmonary (test code=Hb) 13.0 g/dL 12.0-16.0 ABG's - Cardiopulmonary (test code=O2HB) 93.7 % 94.0-98.0 ABG's - Cardiopulmonary (test code=COHb) 3.7 gm% 0.0-3.0 ABG's - Cardiopulmonary (test code=METHb) 0.70 gm% 0.04-1.52 ABG's - Cardiopulmonary (test code=HHB) 1.9 % 0.0-2.9 ABG's - Cardiopulmonary (test code=CaO2) 17.3 vol% 18.0-21.0 ABG's - Cardiopulmonary (test code=Aa) 20.465 0-20 ABG's - Cardiopulmonary (test code=Na) 138 mmol/L 135-148 ABG's - Cardiopulmonary (test code=K1) 4.06 mmol/L 3.70-5.30 ABG's - Cardiopulmonary (test code=Cl) 105 mmol/L 98-106 ABG's - Cardiopulmonary (test code=Ca) 1.19 mmol/L 1.12-1.30 ABG's - Cardiopulmonary (test code=BLUE) ARTERIAL ABG's - Cardiopulmonary (test code=SITE) LRA ABG's - Cardiopulmonary (test code=MODALL) NOT DONE ABG's - Cardiopulmonary (test code=RATE) 24 min ABG's - Cardiopulmonary (test code=VOL) 500 ml ABG's - Cardiopulmonary (test code=PEEP) 5.0 cmH2O ABG's - Cardiopulmonary (test code=PRESS) 10 cmH2O ABG's - Cardiopulmonary (test code=FIO2) 28 % ABG's - Cardiopulmonary (test code=MODE) SIMV/PS [id number] 07:44:00 Test Item Value Reference Range Comments Hematology (test code=WBCT) 12.6 thou/uL 4.8-10.8 Hematology (test code=RBCT) 4.67 mill/uL 4.20-5.40 Hematology (test code=HGBT) 12.2 g/dL 12.0-16.0 Hematology (test code=HCTT) 39.0 % 36.0-47.0 Hematology (test code=MCV) 83.4 fL 78.0-98.0 Hematology (test code=MCH) 26.2 pg 27.0-31.0 Hematology (test code=MCHC) 31.4 g/dL 32.0-36.0 Hematology (test code=RDW) 17.2 % 11.5-14.5 Hematology (test code=PLTT) 230 thou/uL 130-400 Hematology (test code=MPV) 8.3 fL 7.4-10.4 Hematology (test code=%NEUT) 88.1 % 42.0-75.0 Hematology (test code=%LYMPH) 7.5 % 21.0-51.0 Hematology (test code=%MONO) 3.6 % 0.0-10.0 Hematology (test code=%EOS) 0.8 % 0.0-10.0 Hematology (test code=%BASO) 0.0 % 0.0-1.0 Hematology (test code=NEUT#) 11.1 thou/uL 1.40-6.50 Hematology (test code=LYMPH#) 1.0 thou/uL 1.20-3.40 Hematology (test code=MONO#) 0.5 thou/uL 0.11-0.59 Hematology (test code=EOS#) 0.1 thou/uL 0.0-0.7 Hematology (test code=BASO#) 0.0 thou/uL 0.0-0.2 [facility] ZEINAB AVENDANO [employer] Phys: [place] [address] : 1944 Age: 73 SEX:F [phone] Exam Date: 04/15/19 Status: ADMIN Acct: [id number] Loc: CCU Pt Unit #: [id number] Report #: [id number] CC: POLLO DA SILVA Thomas MD IMAGING SERVICES REPORT Order # Category/Exam [id number] RAD/XR Chest1 View Portable ([id number]): . Results PORTABLE CHEST: HISTORY: CCU and ventilator followup. COMPARISON: 04/14/2019. FINDINGS/IMPRESSION: ET tube and NG tube have been removed. MediPort catheter remains in position. Opacification in the right apical region is again noted. Left lung remains clear. No acute interval change. POS: [facility] Reported By: Geoffrey Culver MD Electronically Signed Date/Time: 04/15/19 0849 Technologist: HEIDI Dictated Date/Time: 04/15/19 0751 Transcribed Date/Time: 04/15/19 0846XR Chest [address] [facility] Pt Name: ZEINAB AVENDANO [employer] Phys: [place] [address] : 1945 Age: 73 SEX:F [phone] Exam Date: 04/14/19 Status: ADMIN Acct: [id number] Loc: CCU Pt Unit #: [id number] Report #: [id number] CC: POLLO DA SILVA Thomas MD IMAGING SERVICES REPORT Order # Category/Exam [id number] RAD/XR Chest1 View Portable ([id number]): . Results PORTABLE CHEST: Date: 04/14/19 INDICATION: CCU follow-up. Shortness of breath. Ventilator follow-up. COMPARISON: 06/24. FINDINGS: ET tube and NG tube unchanged. Opacification of right apical region is unchanged with aeration of the right lower lung. Left lung remains clear. IMPRESSION: No interval changefrom yesterday. POS: [facility] Reported By: Geoffrey Culver MD Electronically Signed Date /Time: 04/14/19 0854 Technologist: [email or web address] Dictated Date/Time: 04/14/19 0746 Transcribed Date/Time: 04/14/19 0819XR [facility] Name: ZEINAB AVENDANO [employer] Phys: [place] [address] : 1945 Age: 73 SEX:F [phone] Exam Date: 04/13/19 Status: ADMIN Acct: [id number] Loc: CCU Pt Unit #: [id number] Report #: [id number] CC: POLLO DA SILVA Thomas MD IMAGING SERVICES REPORT Order # Category/Exam [id number] RAD/XR Chest1 View Portable ([id number]): . Results RADIOGRAPH CHEST 1 VIEW: DATE: 04/13/2019TIME: 5:00 AM HISTORY: 73-year-old female in respiratory failure, on ventilation. COMPARISON: 04/12/2019 5:17 AM FINDINGS: No interval change. IMPRESSION: 1) no interval change. 2) endotracheal tube, left IJ implantable vascular access port, NG tube,. 3) chronic rightlung volume loss. Total opacification of right upper lung zone, possibly right upper lobectomy, withsuperior retraction of right hilum. 4) left lung clear. 5) no cardiomegaly. Reported By: Phillip Daigle MD Electronically Signed Date/Time: 04/13/19 0813 Technologist: [email or web address] Dictated Date/Time: 04/13/19 0810 Transcribed Date/Time:XR [facility] [place] Name: ZEINAB AVENDANO [employer] Phys: [place] [address] : 1945 Age: 73 SEX:F [phone] Exam Date: 04/12/19 Status: ADMIN Acct: [id number] Loc: CCU Pt Unit #: [id number] Report #: [id number] CC: POLLO DA SILVA Thomas MD IMAGING SERVICES REPORT Order # Category/Exam [id number] RAD/XR Chest1 View Portable ([id number]): . Results Exam: Chest one view: HISTORY: Respiratoryinsufficiency COMPARISON: 04/11/2019 FINDINGS: Persistent volume loss and pleural changes in the right chest. Left subclavian catheter, NG tube, and endotracheal tube remain in place. IMPRESSION: Persistent pleural changes and volume loss in the right chest with stable left support tubes. Continued short-term follow-up. Reported By: Clement Richmond Electronically Signed: 2018 8:14 AM Reported By: Clement Richmond MD Electronically Signed Date/Time: [id number] Technologist: HEIDI Dictated Date/Time: 0812 Transcribed Date/Time:US Venous Doppler [facility] Pt Name: ZEINAB AVENDANO [employer] Phys: [place] [address] : 1945 Age: 73 SEX:F [phone] Exam Date : 04/11/19 Status: ADMIN Acct: [id number] Loc: CCU Pt Unit #: [id number] Report #: [id number] CC: POLLO DA SILVA David, MD ULTRASOUND REPORT Order # Category/Exam [id number] ULT/US Venous Doppler Rt Unilat ([id number]): . Results Exam: Right lower extremity venous ultrasound with Doppler HISTORY: Edema. COMPARISON: None TECHNIQUE: Grayscale, color flow, Doppler imaging with spectral waveform is performed in the right lower extremity venous system FINDINGS: There is compressibility, presence of flow and augmentation in the common femoral vein, femoral vein andpopliteal vein. There is flow in the greater saphenous vein, profunda vein. Limited evaluation theposterior tibial vein IMPRESSION: Limited evaluation of the posterior tibial vein. Visualized right lower extremity deep venous system does not demonstrate thrombosis. Reported By: David Kuhn MD Electronically Signed Date/Time: 04/11/191736 Technologist: ANA Dictated Date/Time: 04/11/19 1731 Transcribed Date/Time :XR Chest [facility] [place] Name: ZEINAB AVENDANO [employer] Phys: [place] [address] : 1945 Age: 73 SEX:F [phone] Exam Date: 04/11/19 Status: ADMIN Acct: [id number] Loc: CCU Pt Unit #: [id number] Report #: [id number] CC: POLLO DA SILVA Thomas MD IMAGING SERVICES REPORT Order # Category/Exam [id number] RAD/XR Chest1 View Portable ([id number]): . Results XR Chest 1 View Portable History: Endotrachealtube placement Comparison: Radiograph same day Findings: Endotracheal tube appears to beenpulled back slightly above the rl 9 mm. Similar appearance with appears be a large right hilar mass. Volume loss right upper lobe. Left lung relatively clear. Port catheter tip right atrium. Impression: Degenerative tip 9 mm above the rl. Consider retracting 1 cm. Reported By: ANAID ABRAMS Electronically Signed Date/Time: 04/11/19 1122 Technologist: Dictated Date/Time: 04/11/19 1118 Transcribed Date/ Time:XR [facility] [place] [facility] Name: ZEINAB AVENDANO [employer] Phys: [place] [address] : 1945 Age: 73 SEX:F [phone] Exam Date: 04/11/19 Status: REG ER Acct: [id number] Loc: ERS Pt Unit #: [id number] Report #: [id number] CC: SHABNAM VARGHESE DO IMAGING SERVICES REPORT Order # Category/Exam [id number] RAD/XR Chest 1 View Portable([id number]): . Results RADIOGRAPH CHEST 1 VIEW: DATE: 04/11/2019 TIME: 7:17 AM HISTORY : 73-year-old female in respiratory failure status post intubation COMPARISON: none FINDINGS: Endotracheal tuber distal tip is approximately 0.5 cm into the right mainstem bronchus. There is total opacification of the right upper lobe with superior retraction of the right hilum. There is right hilum enlargement. Tracheal mediastinal shift to the right. No consolidation at the right lower lung zone. Left lung is relatively clear. No cardiomegaly. Left IJ implantable vascular access port distal tip at upper portion of right atrium. NG tube courses through the stomach. No pneumothorax. IMPRESSION: 1. Status post intubation with endotracheal tube at origin of right mainstem bronchus. 2. Total opacification and volume loss of entire right upper lobe. Uncertain how much of this is chronic and how much is acute, without prior studies for comparison. 3. Possible right hilar mass. 4. Implantable vascular access port. 5. Esophagogastric tube. 6. Left lung is clear. Reported By: Phillip Daigle Electronically Signed: 2018 7:48 AM Reported By: Phillip Daigle MD Electronically Signed Date/Time : 04/11/19 0748 Technologist: HEIDI Dictated Date/Time: 04/11/19 0745 Transcribed Date/Time:
== END 2019-08-13 17:52 | disposition home or self-care (01) | DRG 207 ==
LOC: ER 12:37 → ERHOLD 14:38 → 3RD-ICU 15:16 → 2ND 08-13 11:05
PROVIDERS: ADMIT Family Medicine; ATTEND Family Medicine
PROC: 0BH17EZ Insertion of Endotracheal Airway into Trachea, Via Natural or Artificial Opening (ICD-10-PCS; principal; 2019-08-08)
PROC: 5A1955Z Respiratory Ventilation, Greater than 96 Consecutive Hours (ICD-10-PCS; 2019-08-08)
DX: J96.22 Acute and chronic respiratory failure with hypercapnia (principal); G92 Toxic encephalopathy; J44.1 Chronic obstructive pulmonary disease with (acute) exacerbation; C34.90 Malignant neoplasm of unspecified part of unspecified bronchus or lung; N17.9 Acute kidney failure, unspecified; J96.21 Acute and chronic respiratory failure with hypoxia; E86.0 Dehydration; E87.5 Hyperkalemia; I10 Essential (primary) hypertension; F41.8 Other specified anxiety disorders; G25.81 Restless legs syndrome; F17.200 Nicotine dependence, unspecified, uncomplicated
CPT/HCPCS: 31500; 36415; 51702; 70450; 71045; 71046; 71275; 76770; 80048; 80061; 80202; 80307; 80320; 80329; 81001; 81003; 82140; 82550; 82553; 82570; 82805; 82947; 83605; 83735; 83880; 84145; 84156; 84439; 84443; 84484; 85025; 85610; 85730; 87040; 87070; 87205; 87804; 93005; 93306; 93970; 94002; 94003; 96365; 96366; 96367; 96368; 96375; 97112; 97116; 97161; 99291; C9113; J0330; J0360; J0692; J0696; J1120; J1650; J2250; J2704; J2920; J2930; J3010; J3475; J7030; J7040; J7512; J7605; Q9967

== ENCOUNTER 2019-08-21 18:50 | Inpatient (IN) | payer OTHER ==
--- OUTSIDE RECORDS SUMMARY | 2019-08-21 18:54 | XMS REPORT ---
:1945 [facility] Jose Elias Denny [address] [place] [id number] Care Team Providers Name Role Phone POLLO DA SILVA Unavailable Unavailable Problems This patient has no [...] Hematology (test code=POLY) SLIGHT=2-3 cells (100X) 0-2/hpf [id number] 06:09:00 Test Item Value Reference Range Comments [...] 83-110 Chemistry (test code=CA) 9.3 mg/dL 7.8-10.44 Lqemvbfzwb5514-94-16 07:57:00 Test Item Value Reference Range Comments [...] 2 % 0-10 Hematology (test code=MC) Normal Ebmdptjzg5946-56-50 07:30:00 Test Item Value Reference Range Comments [...] (test code=CA) 8.6 mg/dL 7.8-10.44 ABG's - Ofjlncpqwtpzngr5187-73-13 05:37:00 Test Item Value Reference Range Comments [...] ABG's - Cardiopulmonary (test code=MODE) SIMV Culture, [id number] 09:49:00 Test Item Value Reference Range Comments Culture, Urine (test code=URC) NG48 ABG's - Wnaoanyycugessk8242-93-32 07:22:00 Test Item Value Reference Range Comments [...] % ABG's - Cardiopulmonary (test code=MODE) SIMV.PSV Obufnciivo8079-49-65 05:07:00 Test Item Value Reference Range Comments [...] 0-10 Hematology (test code=MY) 1 % 0-0 Zmquiyuis4803-98-31 04:36:00 Test Item Value Reference Range Comments [...] (test code=CA) 8.9 mg/dL 7.8-10.44 ABG's - Lwdgjjcwygqegpi7121-68-48 08:18:00 Test Item Value Reference Range Comments [...] % ABG's - Cardiopulmonary (test code=MODE) SIMV.PSV Gxpoyumbvr5513-50-07 05:09:00 Test Item Value Reference Range Comments [...] 0-10 Hematology (test code=MO) 2 % 0-10 Cqqojirrh4642-88-67 05:08:00 Test Item Value Reference Range Comments [...] 83-110 Chemistry (test code=CA) 8.3 mg/dL 7.8-10.44 Lqfrzuccy0822-03-76 16:32:00 Test Item Value Reference Range Comments Chemistry (test code=CK) 50 U/L 29-168 Chemistry - BNP, HgbA1c, [id number] 08:19:00 Test Item Value Reference Range Comments Chemistry - BNP, HgbA1c, PTHi (test code=BNP) 229.7 pg/mL 0-100 Ofqwcesfu6094-51-65 08:06:00 Test Item Value Reference Range Comments Chemistry (test 0.022 ng/mL < 0.028 code=TROPI-R) Reference Range 0.00 - 0.028 ng/mL Negative 0.029 - 0.29 ng/mL Indeterminate Greater or Equal to 0.3 ng/mL Strongly suggests WA Vtdbbxewk1344-87-89 08:01:00 Test Item Value Reference Range Comments [...] (test code=ALT) 89 U/L 8-55 ABG's - Lnjlmwgafvjylfp6537-11-48 07:54:00 Test Item Value Reference Range Comments [...] % ABG's - Cardiopulmonary (test code=MODE) SIMV/PS Qsxbbrqpwo9366-42-86 07:44:00 Test Item Value Reference Range Comments [...] 0.0 thou/uL 0.0-0.2 [facility]AB AVEND[facility] Keen Home Phys: [place] [address] : 1944 Age: 73 SEX:F [phone] Exam Date: 04/15/19 Status: ADMIN Acct: [id number] Loc: CCU Pt Unit #: [id number] Report #: [id number] CC: POLLO DA SILVA Thomas MD IMAGING SERVICES REPORT Order # Category/Exam [id number] RAD/XR Chest1 View Portable ([id number]): . Results PORTABLE CHEST: HISTORY: CCU and ventilator followup. COMPARISON: 04/14/2019. FINDINGS/IMPRESSION: ET tube and NG tube have been removed. MediPort catheter remains in position. Opacification in the right apical region is again noted. Left lung remains clear. No acute interval change. POS: [facility] Reported By: Geoffrey Culver MD Electronically Signed Date/Time: 04/15/19 0849 Technologist: HEIDI Dictated Date/Time: 04/15/19 0751 Transcribed Date/Time: 04/15/19 0846XR Chest 1 View [facility] Pt Name: ZEINAB AVENDANO Keen Home Phys: [place] [address] : 1945 Age: 73 SEX:F [phone] Exam Date: 04/14/19 Status: ADMIN Acct: [id number] Loc: CCU Pt Unit #: [id number] Report #: [id number] CC: POLLO DA SILVA Thomas MD IMAGING SERVICES REPORT Order # Category/Exam [id number] RAD/XR Chest1 View Portable ([id number]): . Results PORTABLE CHEST: Date: 04/14/19 INDICATION: [...] Transcribed Date/Time: 04/14/19 0819XR [facility] ZEINAB AVENDANO Keen Home Phys: [place] [address] : 1945 Age: 73 SEX:F [phone] Exam Date: 04/13/19 Status: ADMIN Acct: [id number] Loc: CCU Pt Unit #: [id number] Report #: [id number] CC: POLLO DA SILVA Thomas MD IMAGING SERVICES REPORT Order # Category/Exam [id number] RAD/XR Chest1 View Portable ([id number]): . Results RADIOGRAPH CHEST 1 VIEW: DATE: [...] 04/13/19 0810 Transcribed Date/Time:XR [facility]: ZEINAB AVENDANO Keen Home [place]: [place] [address] : 1945 Age: 73 SEX:F [phone] Exam Date: 04/12/19 Status: ADMIN Acct: [id number] Loc: CCU Pt Unit #: [id number] Report #: [id number] CC: POLLO DA SILVA Thomas MD IMAGING SERVICES REPORT Order # Category/Exam [id number] RAD/XR Chest1 View Portable ([id number]): . Results Exam: Chest one view: HISTORY: [...] By: Clement Richmond MD Electronically Signed Date/Time: [id number] Technologist: HEIDI Dictated Date/Time: 0812 Transcribed Date/Time:US Venous Doppler Rt [facility] Pt Name: ZEINAB AVENDANO Keen Home Phys: [place] [address] : 1945 Age: 73 SEX:F [phone] Exam Date : 04/11/19 Status: ADMIN Acct: [id number] Loc: CCU Pt Unit #: [id number] Report #: [id number] CC: POLLO DA SILVA David, MD ULTRASOUND REPORT Order # Category/Exam [id number] ULT/US Venous Doppler Rt Unil ([id number]): . Results Exam: Right lower extremity venous [...] 1731 Transcribed Date/Time :[facility] ZEINAB AVENDANO [place] Phys: Dariel Jacobs [place] [address] : 1945 Age: 73 SEX:F [phone] Exam Date: 04/11/19 Status: ADMIN Acct: [id number] Loc: CCU Pt Unit #: [id number] Report #: [id number] CC: POLLO DA SILVA Thomas MD IMAGING SERVICES REPORT Order # Category/Exam [id number] RAD/XR Chest1 View Portable ([id number]): . Results XR Chest 1 View Portable [...] 1118 Transcribed Date/ Time:XR [facility]: ZEINAB AVENDANO [address] Mila Phys: [place] [address] : 1945 Age: 73 SEX:F [phone] Exam Date: 04/11/19 Status: REG ER Acct: [id number] Loc: ERS Pt Unit #: [id number] Report #: [id number] CC: SHABNAM VARGHESE DO IMAGING SERVICES REPORT Order # Category/Exam [id number] RAD/XR Chest 1 View Portable([id number]): . Results RADIOGRAPH CHEST 1 VIEW: DATE: [...]
[2019-08-21] MEDS ORDERED: NA CHLORIDE 0.9% 2,000 ML ONE (19:04)
[2019-08-21] MEDS ORDERED: ACETAMINOPHEN 500 MG TAB ONE (19:13)
[2019-08-21] MEDS ORDERED: METHYLPREDNISOLONE 125 MG INJ ONE (19:13)
[2019-08-21] MEDS ORDERED: LEVALBUTEROL 1.25 MG/3 ML NEB ONE ×2 (19:13→21:18)
[2019-08-21 19:24] LABS: Absolute Lymphocytes (CBC) 0.2 K/uL (0.7-4.9); Basophils % 0.1 % (0-1.3); Hematocrit 32.6 % (36.0-45.0); Lymphocytes % 1.9 % (15.3-44.8); MPV 8.4 fL (7.6-11.3); RBC Red Blood Cell Count 4.39 M/uL (3.86-4.86)
[2019-08-21 19:37] LABS: Protime INR 1.21
[2019-08-21 19:40] LABS: Albumin 2.5 g/dL (3.4-5.0); Bilirubin Direct 0.2 mg/dL (0-0.2); Bilirubin Total 0.6 mg/dL (0.2-1.0); CKMB Creatine Kinase MB 1.5 ng/mL (0.3-3.6); Potassium 3.7 mmol/L (3.5-5.1); Protein, Total 5.7 g/dL (6.4-8.2); Troponin (Emerg Dept Use Only) 0.07 ng/mL (0.0-0.045)
--- NOTE | 2019-08-21 20:01 | RAD REPORT ---
EXAM DESCRIPTION: RAD - Chest Single View - 08/21/2019 7:46 pm CLINICAL HISTORY: SOB Chest pain. COMPARISON: Chest Pa And Lat (2 Views) dated 08/13/2019; Chest Single View dated 08/12/2019; Chest Sin gle View dated 08/10/2019; Chest Single View dated 08/09/2019 FINDINGS: Portable technique limits examination quality. Emphysematous changes are again seen with right apex opacification unchanged. The heart is normal in size. Left-sided port catheter is in unchanged position.
[2019-08-21] MEDS ORDERED: CEFTRIAXONE/SWI 1gm 1 GM/10 ML SYR ONE (20:14)
[2019-08-21] MEDS ORDERED: NA CHLORIDE 0.9% 1,000 ML ONE (20:14)
[2019-08-21] MEDS ORDERED: Levofloxacin 750mg IV 750 MG/150 ML BAG IV ONE (20:14)
--- NOTE | 2019-08-21 20:35 | EDPHYS ---
Physician Documentation [facility] Name: Fela Mustafa Age: 73 yrs Sex: Female : 1945 Arrival Date: 08/21/2019 Time: 18:54 Bed 2 Private MD: ED Physician Ron Buchanan HPI: 08/21 19:06 This 73 yrs old Female presents to ER via EMS with complaints of Shortness Of rn Breath. 19:06 The patient has shortness of breath at rest, with light activity. Onset: The rn symptoms/episode began/occurred 2 day(s) ago. Duration: The symptoms are continuous. The patient's shortness of breath is aggravated by exertion, light activity. Associated signs and symptoms: Pertinent positives: non-productive cough, fever, Pertinent negatives: hemoptysis, loss of consciousness, vomiting. Severity of symptoms: At their worst the symptoms were moderate in the emergency department the symptoms have improved. The patient has experienced similar episodes in the past. The patient has been recently seen at the [facility] Emergency Department, The patient has been recently been admitted at [facility]. Reports increased sob over last few days, + fever, reports family member with RSV and was exposed, reports increased nasal drainage and cough, + dyspnea on exertion. I saw her 2 weeks ago and patient intubated for respiratory failure. . Historical: - Allergies: 19:00 No Known Allergies; la1 - PMHx: 19:00 COPD; lung CA; la1 - Immunization history:: Adult Immunizations up to date. - Social history:: Smoking status: unknown. - Ebola Screening: : No symptoms or risks identified at this time. - Family history:: not pertinent. - Hospitalizations: : The patient was recently seen at [facility]. ROS: 19:06 Constitutional: + fever and chills Eyes: Negative for injury, pain, redness, and corn popper, ENT: + nasal drainage Cardiovascular: Negative for chest pain, palpitations Respiratory: + sob and cough Abdomen/GI: Negative for abdominal pain, nausea, vomiting, diarrhea, and constipation, MS/Extremity: Negative for injury and deformity, Skin: Negative for injury, rash, and discoloration, Neuro: Negative for headache, numbness, tingling, and seizure. Exam: 19:06 Constitutional: Awake, mild respiratory distress Head/Face: Normocephalic, rn atraumatic. ENT: dry MM, no stridor or oral swelling Cardiovascular: Tachycardic, regular, no murmur Respiratory: + diminished bilateral breath sounds with mild exp wheezing bilaterally. Abdomen/GI: soft, non-tender MS/ Extremity: Pulses equal, no cyanosis. Neurovascular intact. Full, normal range of motion. Equal circumference. 1+ non-pitting edema bilateral lower ext Neuro: Awake and alert, GCS 15, oriented to person, place, time, and situation. Cranial nerves II-XII grossly intact. Motor strength 5/5 in all extremities. Sensory grossly intact. Sitting upright, drinking water. 19:45 ECG was reviewed by the Attending Physician. rn Vital Signs: 18:57 BP 86 / 45; Pulse 129; Resp 24; Temp 103.2; Pulse Ox 96% on 2 lpm NC; la1 19:01 Weight 72.57 kg; la1 20:00 BP 96 / 45; Pulse 111; Resp 27; Pulse Ox 96% on 2 lpm NC; jb4 20:40 BP 96 / 60 (man/); Pulse 110; Resp 28; Pulse Ox 96% on 2 lpm NC; jb4 21:13 BP 104 / 62 RA (man/); Pulse 118; Resp 27; Temp 98.9; Pulse Ox 93% on 2 lpm NC; jb4 22:30 BP 78 / 55; Pulse 102; Resp 28; Pulse Ox 96% on 2 lpm NC; jb4 22:45 BP 118 / 69; Pulse 100; Resp 23; Pulse Ox 97% on 2 lpm NC; jb4 MDM: 18:59 Patient medically screened. rn 20:32 Differential diagnosis: Bronchitis Chronic Obstructive Pulmonary Disease Myocardial rn Infarction pneumonia, Pneumothorax pulmonary edema, reactive airway disease, Sepsis. Data reviewed: vital signs, nurses notes, lab test result(s), EKG, radiologic studies, plain films, and as a result, I will admit patient. Test interpretation: by ED physician or midlevel provider: plain radiologic studies, CXR unchanged from prior, + RUL opacification. Counseling: I had a detailed discussion with the patient and/or guardian regarding: the historical points, exam findings, and any diagnostic results supporting the discharge/admit diagnosis, lab results, radiology results, the need for further work-up and treatment in the hospital. Response to treatment: the patient's symptoms have mildly improved after treatment, and as a result, I will admit patient. Admission orders: after a detailed discussion of the patient's condition and case, the admit orders are written by me. ED course: Pt still tachypneic and tachycardic, elevated trop/procalcitonin, borderline BP, patient feels better and looks/sounds better, but needs admission for further therapy. Notified Dr. zambrano \T\ 2032.. 08/21 18:55 Order name: Basic Metabolic Panel; Complete Time: 19:58 [facility] 08/21 18:55 Order name: Blood Culture Adult (2) [facility] 08/21 18:55 Order name: CBC with Diff 08/21 18:55 Order name: Ckmb; Complete Time: 19:58 [facility] 08/21 18:55 Order name: CPK; Complete Time: 19:58 [facility] 08/21 18:55 Order name: Lactate; Complete Time: 19:58 [facility] 08/21 18:55 Order name: LFT's; Complete Time: 19:58 [facility] 08/21 18:55 Order name: Lipase; Complete Time: 19:58 [facility] 08/21 18:55 Order name: Procalcitonin; Complete Time: 20:17 [facility] 08/21 18:55 Order name: Protime (+inr); Complete Time: 19:58 [facility] 08/21 18:55 Order name: Ptt, Activated; Complete Time: 19:58 [facility] 08/21 18:55 Order name: Troponin (emerg Dept Use Only); Complete Time: 19:58 [facility] 08/21 18:55 Order name: Urine Microscopic Only [facility] 08/21 19:06 Order name: Flu; Complete Time: 19:58 08/21 18:55 Order name: Chest Single View XRAY; Complete Time: 20:17 [facility] 08/21 18:55 Order name: Accucheck; Complete Time: 19:09 [facility] 08/21 19:06 Order name: RSV; Complete Time: 19:58 08/21 19:06 Order name: Urine Culture 08/21 19:19 Order name: Glucose, Ancillary Testing; Complete Time: 19:36 [facility] 08/21 22:23 Order name: Lactate Sepsis 2 HR Follow-up; Complete Time: 23:21 [facility] 08/21 18:55 Order name: Cardiac monitoring; Complete Time: 19: [facility] 08/21 18:55 Order name: EKG - Nurse/Tech; Complete Time: 19:08/21 18:55 Order name: IV Saline Lock - Large Bore; Complete Time: 19:08/21 18:55 Order name: Labs collected and sent; Complete Time: :08/21 18:55 Order name: O2 Per Protocol; Complete Time: 19:08/21 18:55 Order name: O2 Sat Monitoring; Complete Time: 19: EC:45 Rate is 121 beats/min. Rhythm is regular. QRS is positive in lead I and negative in rn lead aVF. MN interval is normal. QRS interval is normal. QT interval is normal. No Q waves. T waves are Normal. No ST changes noted. Clinical impression: Sinus tachycardia. Interpreted by me. Reviewed by me. Administered Medications: 19:07 Drug: NS 0.9% (30 ml/kg) 30 ml/kg Route: IV; Rate: bolus; Site: left antecubital; 4 20:54 Follow up: Response: No adverse reaction; IV Status: Completed infusion; IV Intake: jb4 2000ml 19:36 Drug: Tylenol 1000 mg Route: PO; 4 21:13 Follow up: Response: No adverse reaction; Temperature is decreased [facility] 19:37 Drug: SOLU-Medrol 125 mg Route: IVP; Site: right hand; jb4 20:00 Follow up: Response: No adverse reaction [facility] 19:37 Drug: Xopenex (3) 1.25 mg Route: Inhalation; 4 19:50 Follow up: Response: No adverse reaction; Wheezing diminished 4 20:40 Drug: Rocephin - (cefTRIAXone) 1 grams {Note: Administered IV push per pharmacy [facility] protocol.} Route: IVPB; Infused Over: 30 mins; Site: right hand; 20:42 Follow up: Response: No adverse reaction; IV Status: Completed infusion; IV Intake: 22eapy2 20:45 Drug: LevaQUIN 750 mg Volume: 150 ml; Route: IVPB; Infused Over: 90 mins; Site: right [facility] hand; 22:15 Follow up: Response: No adverse reaction; IV Status: Completed infusion; IV Intake: jb4 150ml 20:45 Drug: NS 0.9% 1000 ml Route: IV; Rate: 125 ml/hr; Site: right hand; jb4 22:43 Follow up: Response: No adverse reaction; IV Status: Completed infusion jb4 21:16 Drug: Tussionex Pennkinetic ER 5 ml Route: PO; jb4 21:40 Follow up: Response: No adverse reaction; Marked relief of symptoms jb4 21:16 Drug: Xopenex 1.25 mg Route: Inhalation; jb4 21:40 Follow up: Response: No adverse reaction; Marked relief of symptoms jb4 22:33 Drug: Levophed (4 mg/250 mL D5W 4 mcg/min Route: IV; Rate: calculated rate; Site: [facility] Port-a-cath; 22:43 Follow up: Response: No adverse reaction; IV Status: Infusion continued upon admission jb4 Disposition: 20:32 Critical Care:. rn Disposition: 08/21/19 20:34 Hospitalization ordered by Anshul Zambrano for Inpatient Admission. Preliminary diagnosis are Chronic obstructive pulmonary disease with (acute) exacerbation, Acute bronchitis due to respiratory syncytial virus, Hypotension, unspecified. - Bed requested for Intensive Care Unit. - Status is Inpatient Admission. jb4 - Condition is Fair. - Problem is new. - Symptoms have improved. UTI on Admission? No Critical care time excluding procedures: 20:32 Critical care time: Bedside Care: 25 minutes, Consultation: 5 minutes. Total time: 30 rn minutes Signatures: Dispatcher [employer] EDMS Ron Buchanan MD MD rn Calderon, Audri, RN RN aa5 Gorge Garcia RN RN la1 Lavern An RN RN cg Bryson, James, RN RN jb4 Corrections: (The following items were deleted from the chart) 22:29 20:34 Hospitalization Ordered by Anshul Zambrano for Inpatient Admission. Preliminary cg diagnosis is Chronic obstructive pulmonary disease with (acute) exacerbation; Acute bronchitis due to respiratory syncytial virus; Hypotension, unspecified. Bed requested for Intensive Care Unit. Status is Inpatient Admission. Condition is Fair. Problem is new. Symptoms have improved. UTI on Admission? No. rn 23:39 22:29 08/21/2019 20:34 Hospitalization Ordered by Anshul Zambrano for Inpatient jb4 Admission. Preliminary diagnosis is Chronic obstructive pulmonary disease with (acute) exacerbation; Acute bronchitis due to respiratory syncytial virus; Hypotension, unspecified. Bed requested for Intensive Care Unit. Status is Inpatient Admission. Condition is Fair. Problem is new. Symptoms have improved. UTI on Admission? No. cg
--- NOTE | 2019-08-21 20:35 | ER ---
Nurse's Notes [facility] Name: Fela Mustafa Age: 73 yrs Sex: Female : 1945 Arrival Date: 08/21/2019 Time: 18:54 Bed 2 Private MD: Diagnosis: Chronic obstructive pulmonary disease with (acute) exacerbation;Acute bronchitis due to respiratory syncytial virus;Hypotension, unspecified Presentation: 08/21 18:56 Presenting complaint: Patient states: I have been feeling sick over the course of the la1 last few days, much worse today. Transition of care: patient was not received from another setting of care. Onset of symptoms was August 21, 2019. Risk Assessment: Do you want to hurt yourself or someone else? Patient reports no desire to harm self or others. Initial Sepsis Screen: Does the patient meet any 2 criteria? Temp <36.0*C (96.8*F)) or > 38.3*C (100.9*F). HR > 90 bpm. Yes Does the patient have a suspected source of infection? If YES to both, name of provider notified: Ron Buchanan MD. Care prior to arrival: None. 18:56 Method Of Arrival: EMS: [facility] la1 18:56 Acuity: GENO 2 la1 19:11 Note lab contacted to draw blood cultures. ak1 Historical: - Allergies: 19:00 No Known Allergies; la1 - PMHx: 19:00 COPD; lung CA; la1 - Immunization history:: Adult Immunizations up to date. - Social history:: Smoking status: unknown. - Ebola Screening: : No symptoms or risks identified at this time. - Family history:: not pertinent. - Hospitalizations: : The patient was recently seen at [facility]. Screenin:05 Abuse screen: Denies threats or abuse. Nutritional screening: No deficits noted. jb4 Tuberculosis screening: No symptoms or risk factors identified. Fall Risk None identified. Assessment: 19:05 General: Appears distressed, uncomfortable, Behavior is calm, cooperative, appropriate jb4 for age. Pain: Complains of pain in back Pain does not radiate. Pain currently is 8 out of 10 on a pain scale. Neuro: Level of Consciousness is awake, alert, obeys commands, Oriented to person, place, time, situation. Cardiovascular: Patient's skin is warm and dry. Rhythm is sinus tachycardia. Respiratory: Airway is patent Respiratory effort is even, labored, Respiratory pattern is symmetrical, tachypnea Breath sounds are diminished bilaterally. Breath sounds with wheezes bilaterally. GI: No deficits noted. No signs and/or symptoms were reported involving the gastrointestinal system. : No deficits noted. No signs and/or symptoms were reported regarding the genitourinary system. EENT: No deficits noted. No signs and/or symptoms were reported regarding the EENT system. Derm: Skin is intact, Skin is pink, warm \T\ dry. Musculoskeletal: Circulation, motion, and sensation intact. Range of motion: intact in all extremities. 20:10 Reassessment: Patient and/or family updated on plan of care and expected duration. Pain jb4 level reassessed. Patient states feeling better. Patient states symptoms have improved. Neuro: Level of Consciousness is awake, alert, obeys commands, Oriented to person, place, time, situation. Respiratory: Airway is patent Respiratory effort is even, unlabored, Respiratory pattern is symmetrical, tachypnea. 21:15 Reassessment: Patient and/or family updated on plan of care and expected duration. Pain jb4 level reassessed. PT is having increased cough and difficulty breathing provider notified. See MAR for orders. 22:30 Reassessment: Patient and/or family updated on plan of care and expected duration. Pain jb4 level reassessed. PT put of Levophed due to low b/p 78/55 Provider notified. Patient states feeling better. Respiratory: Airway is patent Respiratory effort is even, unlabored, Respiratory pattern is symmetrical, tachypnea. Vital Signs: 18:57 BP 86 / 45; Pulse 129; Resp 24; Temp 103.2; Pulse Ox 96% on 2 lpm NC; la1 19:01 Weight 72.57 kg; la1 20:00 BP 96 / 45; Pulse 111; Resp 27; Pulse Ox 96% on 2 lpm NC; jb4 20:40 BP 96 / 60 (man/); Pulse 110; Resp 28; Pulse Ox 96% on 2 lpm NC; jb4 21:13 BP 104 / 62 RA (man/); Pulse 118; Resp 27; Temp 98.9; Pulse Ox 93% on 2 lpm NC; jb4 22:30 BP 78 / 55; Pulse 102; Resp 28; Pulse Ox 96% on 2 lpm NC; jb4 22:45 BP 118 / 69; Pulse 100; Resp 23; Pulse Ox 97% on 2 lpm NC; jb4 ED Course: 18:54 Patient arrived in ED. em1 18:57 Triage completed. la1 18:58 Arm band placed on left wrist. la1 18:59 Ron Buchanan MD is Attending Physician. rn 19:08 Dc Woo RN is Primary Nurse. jb4 19:13 Patient has correct armband on for positive identification. Bed in low position. Call ak1 light in reach. Side rails up X2. ekg monitor tech on. Pulse ox on. NIBP on. 19:13 Initial lab(s) drawn, by me, sent to lab. EKG done, by ED staff, reviewed by Ron Buchanan MD. Maintain EMS IV. Dressing intact. Good blood return noted. Site clean \T\ dry. Gauge \T\ site: 18G left AC. 19:25 First set of blood cultures drawn by me. ak1 19:30 Accessed Port-a-Cath. using accessed w/ # 20 Gutierrez needle, ,sterile technique, Clean \T\ jb4 dry. Dressing intact. Flushes easily. 19:34 Inserted saline lock: 22 gauge in right hand, using aseptic technique. Blood collected. ak1 19:43 Notified ED physician of a critical lab result(s). lactate of 4.2. fc 19:46 Chest Single View XRAY In Process Unspecified. EDMS 19:55 Second set of blood cultures drawn by me. ak1 20:34 Anshul Zambrano is Hospitalizing Provider. rn 22:47 No provider procedures requiring assistance completed. Patient admitted, IV remains in jb4 place. Administered Medications: 19:07 Drug: NS 0.9% (30 ml/kg) 30 ml/kg Route: IV; Rate: bolus; Site: left antecubital; jb4 20:54 Follow up: Response: No adverse reaction; IV Status: Completed infusion; IV Intake: jb4 2000ml 19:36 Drug: Tylenol 1000 mg Route: PO; jb4 21:13 Follow up: Response: No adverse reaction; Temperature is decreased jb4 19:37 Drug: SOLU-Medrol 125 mg Route: IVP; Site: right hand; jb4 20:00 Follow up: Response: No adverse reaction jb4 19:37 Drug: Xopenex (3) 1.25 mg Route: Inhalation; jb4 19:50 Follow up: Response: No adverse reaction; Wheezing diminished jb4 20:40 Drug: Rocephin - (cefTRIAXone) 1 grams {Note: Administered IV push per pharmacy jb4 protocol.} Route: IVPB; Infused Over: 30 mins; Site: right hand; 20:42 Follow up: Response: No adverse reaction; IV Status: Completed infusion; IV Intake: [id number] 20:45 Drug: LevaQUIN 750 mg Volume: 150 ml; Route: IVPB; Infused Over: 90 mins; Site: right [facility] hand; 22:15 Follow up: Response: No adverse reaction; IV Status: Completed infusion; IV Intake: jb4 150ml 20:45 Drug: NS 0.9% 1000 ml Route: IV; Rate: 125 ml/hr; Site: right hand; jb4 22:43 Follow up: Response: No adverse reaction; IV Status: Completed infusion jb4 21:16 Drug: Tussionex Pennkinetic ER 5 ml Route: PO; jb4 21:40 Follow up: Response: No adverse reaction; Marked relief of symptoms jb4 21:16 Drug: Xopenex 1.25 mg Route: Inhalation; jb4 21:40 Follow up: Response: No adverse reaction; Marked relief of symptoms jb4 22:33 Drug: Levophed (4 mg/250 mL D5W 4 mcg/min Route: IV; Rate: calculated rate; Site: [facility] Port-a-cath; 22:43 Follow up: Response: No adverse reaction; IV Status: Infusion continued upon admission jb4 Intake: 20:42 IV: 10ml; Total: 10ml. jb4 20:54 IV: 2000ml; Total: 2010ml. jb4 22:15 IV: 150ml; Total: 2160ml. jb4 Outcome: 20:34 Decision to Hospitalize by Provider. rn 23:38 Admitted to ICU accompanied by nurse, accompanied by tech, via wheelchair, room 6, with jb4 oxygen, on monitor, with chart, Report called to WILMA Hoffman 23:38 Condition: stable 23:38 Discharge instructions given to patient, Instructed on the need for admit, Demonstrated understanding of instructions. 23:39 Patient left the ED. jb4 Signatures: Dispatcher [employer] EDMS Yessenia Frost, RN RN Ron Lawrence MD MD rn Martinez, Eric em1 Gorge Garcia RN RN la1 Erika Boykin RN RN ak1 Dc Woo, WILMA RN jb4 Corrections: (The following items were deleted from the chart) 19:55 19:08 Accessed Port-a-Cath. using accessed w/ # 20 Gutierrez needle, ,sterile technique, jb4 Clean \T\ dry. Dressing intact. Flushes easily. jb4 20:11 19:05 Respiratory: Airway is patent Respiratory effort is even, labored, Respiratory jb4 pattern is regular, symmetrical, Breath sounds are diminished bilaterally. Breath sounds with wheezes bilaterally. jb4 20:52 20:40 Rocephin - (cefTRIAXone) 1 grams IVPB in right hand over 30 mins jb4 jb4 21:14 21:13 BP 104 / 62; Pulse 118bpm; Resp 27bpm; Pulse Ox 93% 2 lpm Nasal Cannula; Temp jb4 98.9F; jb4
[2019-08-21] MEDS ORDERED: HYDROCODONE/CHLORPHEN 5 ML/OSYR ONE (21:18)
[2019-08-21] MEDS ORDERED: NOREPINEPHRINE 4mg/D5W 250mL 4 MG/250 ML BAG IV ONE (21:40)
--- NOTE | 2019-08-21 22:38 | P.HP ---
Certification for Inpatient Patient admitted to: Inpatient With expected LOS: >2 Midnights Practitioner: I am a practitioner with admitting privileges, knowledge of patient current condition, hospital course, and medical plan of care. 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 Patient stated she was also wheezing. Her symptoms did not respond to her home nebulizers and bronchodilators. The patient was hospitalized a week ago for COPD exacerbation and acute respiratory failure where she got intubated in the emergency department and placed on a mechanical ventilator She clinically improved and was subsequently discharged with a prednisone taper which she completed. She is on prednisone maintenance therapy for COPD. She was maintained on her home oxygen in the ED today. Her respiratory status partially improved with IV Solu-Medrol, and Xopenex nebulizer. Her nasal swab tested positive for RSV. Her procalcitonin was severely elevated to 99. Patient is admitted for further management. Allergies No Known Allergies Allergy (Verified 08/22/19 00:51) Home Medications: Albuterol Neb [Proventil 0.083% Neb Soln] 3 ml IH Q6HP PRN 08/13/19 Arformoterol Tartrate [Brovana] 1 puff IH BID 08/13/19 Bupropion *Xl* [Wellbutrin XL*] 150 mg PO DAILY 08/13/19 Ipratropium/Albuterol Sulfate [Iprat-Albut 0.5-3(2.5) mg/3 ml] 3 ml IH Q6H PRN 08/13/19 Levothyroxine [Synthroid*] 2 tab PO [id number] 08/13/19 Metoprolol Succinate 25 mg PO DAILY 08/13/19 Pramipexole [Mirapex*] 0.25 mg PO TID 08/13/19 Sodium Chloride For Inhalation [Nebusal] 1 vial IH BID PRN 08/13/19 predniSONE [Prednisone*] 1 tab PO DAILY PRN 08/13/19 - Past Medical/Surgical History Diabetic: No -: Lung cancer suspect stage IV on chemotherapy -: COPD -: History of thyroid cancer -: History of IBS -: IBS -: Thyroid surgery Psychosocial/ Personal History: Patient originally from [facility], getting most of her cancer care in [place] at [facility] Patient was visiting in the area. - Family History Father -: Cancer Mother -: Cancer - Social History Alcohol use: No CD- Drugs: No Caffeine use: Yes Review of Systems Other: General: No fever, no malaise, no unintentional weight loss. Eyes: No eye discharge, CVS: No chest pain, no palpitation, no lightheadedness. GI: No abdominal pain, no nausea no vomit, no constipation, no diarrhea. Genitourinary: No dysuria, no urinary frequency, no incontinence, no hematuria. Musculoskeletal: No joint pains, or joint swelling, no gait instability. Neurology: No headache, no asymmetric, weakness, no problem with swallowing. Except as documented, all other systems reviewed and negative. Physical Examination - Physical Exam General: Alert, In no apparent distress, Oriented x3 HEENT: Atraumatic, Normocephalic, PERRLA, Mucous membr. moist/pink, Sclerae nonicteric Neck: Supple, JVD not distended, No Thyromegaly Respiratory: Diminished, Expiratory wheezes (Mild scattered wheezes) Cardiovascular: No edema, Normal S1 S2, No murmurs, Other (Tachycardic) Capillary refill: <2 Seconds Gastrointestinal: Normal bowel sounds, Soft and benign, Non-distended, No tenderness Musculoskeletal: No swelling, No erythema Integumentary: No rashes, No erythema Neurological: Normal speech, Normal strength at 5/5 x4 extr, Cranial nerves 3- 12 intact - Studies Laboratory Data (last 24 hrs) 08/21/19 19:05: PT 14.2 H, INR 1.21, APTT 19.3 L 08/21/19 19:05: WBC 10.7, Hgb 11.0 L, Hct 32.6 L, Plt Count 115 L D 08/21/19 19:05: Sodium 139, Potassium 3.7, BUN 18, Creatinine 1.16, Glucose 117 H, Total Bilirubin 0.6, AST 20, ALT 22, Alkaline Phosphatase 85, Lipase 31 L Microbiology Data (last 24 hrs): 08/21/19 19:19 Nasopharnyx Influenza Type A Antigen Screen - Final 08/21/19 19:19 Nasopharnyx Influenza Type B Antigen Screen - Final 08/21/19 19:19 Nasopharnyx Respiratory Syncytial Virus Ag Scrn - Final Assessment and Plan - Problems (Diagnosis) (1) RSV bronchitis Current Visit: Yes Status: Acute (2) Sepsis Current Visit: Yes Status: Acute (3) Chronic respiratory failure with hypoxia Current Visit: Yes Status: Acute (4) Elevated troponin Current Visit: Yes Status: Acute (5) Hypotension Current Visit: Yes Status: Acute - Plan Admit to ICU given sepsis with hypotension. Scheduled DuoNeb Scheduled Christopher nebs Will treat with IV Solu-Medrol Sepsis protocol initiated. IV Levaquin and vancomycin for sepsis given recent hospital stay. Follow blood cultures Monitor blood glucose, insulin sliding scale for glucose management. Watch for steroid induced hyperglycemia Check serial procalcitonin. Titrate oxygen Monitor blood pressure closely. Status post IV normal saline bolus in the ED Low threshold for starting vasopressors given sepsis. - Advance Directives Does patient have a Living Will: No Does patient have a Durable POA for Healthcare: No
[2019-08-21] MEDS ORDERED: VANCOMYCIN/NS 1 gm 1 GM/250 ML BAG IVPB SCH (23:06)
[2019-08-21] MEDS ORDERED: Levofloxacin 750mg IV 750 MG/150 ML BAG IV SCH (23:06)
[2019-08-21] MEDS ORDERED: ONDANSETRON 4 MG/2 ML VIAL IV PRN (23:06)
[2019-08-21] MEDS ORDERED: NOREPINEPHRINE 4 MG in D5W 250 ML IV PRN (23:30)
[2019-08-22 00:07] LABS: Magnesium 1.6 mg/dL (1.8-2.4); Phosphorus 3.5 mg/dL (2.5-4.9)
[2019-08-22 00:17] LABS: Thyroid Stimulating Hormone 1.37 uIU/mL (0.360-3.740); Troponin I 0.07 ng/mL (0.0-0.045)
[2019-08-22] MEDS: NA CHLORIDE 0.9% 1,000 ML IV SCH ×3 (00:23→17:08)
[2019-08-22] MEDS: METHYLPREDNISOLONE 40 MG INJ IV SCH ×5 (00:24→22:45)
[2019-08-22] MEDS: INSULIN -REGULAR HUMAN 50 UNIT/0.5 ML ML SQ SCH ×5 (00:24→22:44)
[2019-08-22] MEDS: HEPARIN 5000 UNIT/ML 1 ML VIAL SQ SCH ×3 (00:25→17:08)
[2019-08-22] MEDS ORDERED: POTASSIUM CL SA 10 MEQ TAB PO ONE (00:52)
[2019-08-22] MEDS ORDERED: MAGNESIUM SULFATE 1 gm IVPB 1 GM/100 ML BAG IV ONE (00:52)
[2019-08-22] MEDS ORDERED: NA CHLORIDE 0.9% 0 ML ONE (01:29)
[2019-08-22] MEDS ORDERED: VANCOMYCIN 1 GM/VIAL ONE (01:29)
[2019-08-22] MEDS ORDERED: NA CHLORIDE 0.9% 500 ML ONE (01:41)
[2019-08-22] MEDS: ALBUTEROL 2.5 MG/3 ML NEB SOL NEB SCH ×5 (01:55→20:00)
[2019-08-22] MEDS: IPRATROPIUM BROM 0.5MG/2.5ML NEB SCH ×6 (01:55→20:00)
[2019-08-22] MEDS ORDERED: VANCOMYCIN 2 GM in NA CHLORIDE 0.9% 500 ML IVPB ONE (02:00)
[2019-08-22 02:35] LABS: Urine Color YELLOW
[2019-08-22 02:36] LABS: Urine Appearance HAZY; Urine Bilirubin NEGATIVE (NEG); Urine Blood 2+ (NEG); Urine Glucose NEGATIVE (NEG); Urine Protein 1+ (NEG); Urine Urobilinogen 0.2 mg/dL (0.2-1.0); Urine pH 5.5 (5.0-7.0)
[2019-08-22 02:37] LABS: Urine Bacteria LOADED /HPF (<20); Urine Culture Reflex Order NOT NEEDED; Urine RBC <5 /HPF (NONE SEEN)
[2019-08-22 05:01] LABS: Absolute Lymphocytes (CBC) 0.1 K/uL (0.7-4.9); Basophils % 0.2 % (0-1.3); Hematocrit 31.4 % (36.0-45.0); MPV 8.8 fL (7.6-11.3); RBC Red Blood Cell Count 4.08 M/uL (3.86-4.86)
[2019-08-22 05:18] LABS: Albumin 2.1 g/dL (3.4-5.0); Bilirubin Total 0.4 mg/dL (0.2-1.0); Magnesium 2.1 mg/dL (1.8-2.4); Phosphorus 3.5 mg/dL (2.5-4.9); Potassium 3.8 mmol/L (3.5-5.1)
[2019-08-22 05:35] VITALS: BMI 27.7
[2019-08-22] MEDS: ARFORMOTEROL TARTRATE 15 MCG/2 ML VIAL.NEB NEB SCH ×2 (08:08→20:00)
[2019-08-22] MEDS ORDERED: POTASSIUM 25 MEQ EFFERV TAB PO ONE (09:00)
[2019-08-22 09:26] LABS: Blood Morphology Comment NOT SEEN (NOT SEEN); Platelet Estimate ADEQ; Urine White Blood Cell Casts OK
--- NOTE | 2019-08-22 10:59 | P.PN ---
Subjective Date of Service: 08/22/19 Chief Complaint: Shortness of breath Subjective: No new changes, Improving Feeling better Blood pressure is stable Denies any chest pain or shortness of breath No fever no chills Review of Systems 10-point ROS is otherwise unremarkable Physical Examination - Vital Signs Temperature: 98.4 F Blood Pressure: 132/68 Pulse: 111 Respirations: 22 Pulse Ox (%): 99 - Physical Exam General: Alert, In no apparent distress, Oriented x3 HEENT: Atraumatic, Normocephalic Neck: Supple, 2+ carotid pulse no bruit Respiratory: Diminished, Crackles/rales, Expiratory wheezes Cardiovascular: Regular rate/rhythm, Normal S1 S2 Capillary refill: <2 Seconds Gastrointestinal: Soft and benign, Non-distended, W/out hepatosplenomegaly Musculoskeletal: No clubbing, No swelling Integumentary: No rashes, No tenderness/swelling Neurological: Normal strength at 5/5 x4 extr Lymphatics: No axilla or inguinal lymphadenopathy Urinary: Other (No bladder distention) External genitalia: Deferred Rectal: Deferred - Studies Laboratory Data (last 24 hrs) 08/21/19 19:05: PT 14.2 H, INR 1.21, APTT 19.3 L 08/21/19 19:05: WBC 10.7, Hgb 11.0 L, Hct 32.6 L, Plt Count 115 L D 08/21/19 19:05: Sodium 139, Potassium 3.7, BUN 18, Creatinine 1.16, Glucose 117 H, Total Bilirubin 0.6, AST 20, ALT 22, Alkaline Phosphatase 85, Lipase 31 L Microbiology Data (last 24 hrs): 08/21/19 19:55 Blood - Blood Anaerobic Blood Culture - Final 08/21/19 19:19 Nasopharnyx Influenza Type A Antigen Screen - Final 08/21/19 19:19 Nasopharnyx Influenza Type B Antigen Screen - Final 08/21/19 19:19 Nasopharnyx Respiratory Syncytial Virus Ag Scrn - Final Assessment & Plan - Problems (Diagnosis) (1) Chronic respiratory failure with hypoxia Current Visit: Yes Status: Acute Plan: Acute on chronic hypoxic respiratory failure On oxygen supplementation Continue bronchodilator and steroids pulmonology consult (2) Hypotension Current Visit: Yes Status: Acute Plan: Probably related to sepsis On IV hydration Normotensive now (3) RSV bronchitis Current Visit: Yes Status: Acute Plan: Supportive management (4) Sepsis Current Visit: Yes Status: Acute Plan: admitted to ICU Aggressive hydration Broad-spectrum antibiotics blood cultures pending Change antibiotics as per sensitivity (5) COPD exacerbation Current Visit: No Status: Acute Plan: Start on bronchodilators, steroids Continue home medications and titrate as needed Discharge Plan: Home Plan to discharge in: 48 Hours Physician Review: Patient Assessed, Agree with Above Assessment and Plan Time Spent Managing Pts Care (In Minutes): 45
[2019-08-22] MEDS ORDERED: guaiFENesin 100 MG/5 ML UCUP PO PRN (21:12)
[2019-08-22] MEDS: PRAMIPEXOLE 0.25 MG TAB PO SCH (22:43)
[2019-08-23] MEDS: HEPARIN 5000 UNIT/ML 1 ML VIAL SQ SCH ×3 (01:26→17:19)
[2019-08-23] MEDS: VANCOMYCIN 1.25 GM in NA CHLORIDE 0.9% 250 ML IVPB SCH (01:26)
[2019-08-23] MEDS: NA CHLORIDE 0.9% 1,000 ML IV SCH ×2 (01:27→05:06)
[2019-08-23] MEDS: ALBUTEROL 2.5 MG/3 ML NEB SOL NEB SCH ×4 (02:00→20:00)
[2019-08-23] MEDS: IPRATROPIUM BROM 0.5MG/2.5ML NEB SCH ×5 (04:00→20:00)
[2019-08-23] MEDS: METHYLPREDNISOLONE 40 MG INJ IV SCH (05:30)
[2019-08-23] MEDS: LEVOTHYROXINE SOD 0.125 MG TAB PO SCH (05:31)
[2019-08-23 06:06] LABS: BUN Blood Urea Nitrogen 19 mg/dL (7-18); Bicarbonate 22 mmol/L (21-32); Glucose Level 150 mg/dL (74-106); Potassium 4.1 mmol/L (3.5-5.1); Sodium Level 139 mmol/L (136-145)
--- NOTE | 2019-08-23 07:09 | EKG ---
Test Date: 2019-08-21 Test Time: 19:11:11 Selector Packer: SHARAN MEASUREMENT RESULTS: Intervals: Rate: 121 WY: 124 QRSD: 96 QT: 352 QTc: 499 [place]: P: 67 WY: 124 QRS: -52 T: 60 INTERPRETIVE STATEMENTS: Sinus tachycardia Biatrial enlargement Left axis deviation Nonspecific ST and T wave abnormality Abnormal ECG Compared to ECG 08/08/2019 15:20:34 Left-axis deviation now present ST (T wave) deviation still present Electronically Signed On 08-23-19 07:08:40 METAL SMELTER by Sagar Long
[2019-08-23] MEDS: INSULIN -REGULAR HUMAN 50 UNIT/0.5 ML ML SQ SCH ×4 (07:30→20:12)
[2019-08-23] MEDS: ARFORMOTEROL TARTRATE 15 MCG/2 ML VIAL.NEB NEB SCH ×2 (08:33→20:00)
[2019-08-23] MEDS ORDERED: ALBUTEROL 2.5 MG/3 ML NEB SOL NEB PRN (08:50)
[2019-08-23] MEDS ORDERED: METHYLPREDNISOLONE 40 MG INJ IV SCH (09:00)
[2019-08-23 09:06] LABS: Absolute Lymphocytes (CBC) 0.2 K/uL (0.7-4.9); Basophils % 0.3 % (0-1.3); Hematocrit 33.8 % (36.0-45.0); Lymphocytes % 1.3 % (15.3-44.8); RBC Red Blood Cell Count 4.38 M/uL (3.86-4.86)
[2019-08-23 09:31] LABS: ALT/SGPT 22 U/L (12-78); AST/SGOT 18 U/L (15-37); Albumin 2.3 g/dL (3.4-5.0); Alkaline Phosphatase 81 U/L (45-117); BUN Blood Urea Nitrogen 19 mg/dL (7-18); Bicarbonate 26 mmol/L (21-32); Bilirubin Total 0.4 mg/dL (0.2-1.0); Glucose Level 146 mg/dL (74-106); Potassium 3.9 mmol/L (3.5-5.1); Protein, Total 5.8 g/dL (6.4-8.2); Sodium Level 141 mmol/L (136-145)
--- NOTE | 2019-08-23 09:33 | P.PN ---
Subjective Date of Service: 08/23/19 Chief Complaint: Shortness of breath Feeling better Blood pressure is stable Denies any chest pain or shortness of breath No fever no chills Review of Systems 10-point ROS is otherwise unremarkable Physical Examination - Vital Signs Temperature: 97.6 F Blood Pressure: 163/80 Pulse: 87 Respirations: 22 Pulse Ox (%): 99 - Physical Exam General: Alert, In no apparent distress HEENT: Atraumatic, Normocephalic Neck: Supple, 2+ carotid pulse no bruit Respiratory: Clear to auscultation bilaterally, Normal air movement Cardiovascular: Regular rate/rhythm, Normal S1 S2 Capillary refill: <2 Seconds Gastrointestinal: Soft and benign, W/out hepatosplenomegaly Musculoskeletal: No clubbing, No swelling Integumentary: No rashes Neurological: Normal speech, Normal strength at 5/5 x4 extr Lymphatics: No axilla or inguinal lymphadenopathy External genitalia: Deferred Rectal: Deferred - Studies Microbiology Data (last 24 hrs): 08/21/19 19:55 Blood - Blood Gram Stain - Final 08/21/19 19:55 Blood - Blood Anaerobic Blood Culture - Final Assessment & Plan - Problems (Diagnosis) (1) Chronic respiratory failure with hypoxia Current Visit: Yes Status: Acute Plan: Acute on chronic hypoxic respiratory failure On oxygen supplementation Continue bronchodilator and steroids pulmonology consult (2) Hypotension Current Visit: Yes Status: Acute Plan: Probably related to sepsis On IV hydration Normotensive now (3) RSV bronchitis Current Visit: Yes Status: Acute Plan: Supportive management (4) Sepsis Current Visit: Yes Status: Acute Plan: admitted to ICU Aggressive hydration Broad-spectrum antibiotics blood cultures positive, awaiting final culture report Will get an ID consult Change antibiotics as per sensitivity (5) COPD exacerbation Current Visit: No Status: Acute Plan: Start on bronchodilators, steroids Continue home medications and titrate as needed Discharge Plan: Home Plan to discharge in: 24 Hours Physician Review: Patient Assessed, Agree with Above Assessment and Plan Time Spent Managing Pts Care (In Minutes): 40
[2019-08-23 09:42] LABS: Blood Morphology Comment NOT SEEN (NOT SEEN); Platelet Estimate ADEQ
[2019-08-23] MEDS: ROFLUMILAST 500 MCG TABLET PO SCH (09:55)
[2019-08-23] MEDS: PRAMIPEXOLE 0.25 MG TAB PO SCH ×3 (09:56→21:35)
[2019-08-23] MEDS: ACETAMINOPHEN 500 MG TAB PO PRN (11:14)
--- NOTE | 2019-08-23 12:20 | P.CNS ---
Date of Consult: 08/23/19 Chief Complaint: Respiratory distress blood cultures positive History of Present Illness: Patient is 73 years of age was recently discharged was doing well suddenly became a lot worse all of more shortness of breath chest congestion was admitted to the hospital patient is compliant with her bronchodilators and was also taking steroids. She was admitted in respiratory distress the blood cultures are positive for Gram negative rods most likely Pseudomonas she is doing a little better complaining of cough and congestion chest x-ray does not show any evidence of pneumonia she does have a right upper lobe lung mass Allergies No Known Allergies Allergy (Verified 08/22/19 00:51) Home Medications: Albuterol Neb [Proventil 0.083% Neb Soln] 3 ml IH Q6HP PRN 08/13/19 Arformoterol Tartrate [Brovana] 1 puff IH BID 08/13/19 Bupropion *Xl* [Wellbutrin XL*] 150 mg PO DAILY 08/13/19 Ipratropium/Albuterol Sulfate [Iprat-Albut 0.5-3(2.5) mg/3 ml] 3 ml IH Q6H PRN 08/13/19 Levothyroxine [Synthroid*] 2 tab PO [id number] 08/13/19 Metoprolol Succinate 25 mg PO DAILY 08/13/19 Pramipexole [Mirapex*] 0.25 mg PO TID 08/13/19 Sodium Chloride For Inhalation [Nebusal] 1 vial IH BID PRN 08/13/19 predniSONE [Prednisone*] 1 tab PO DAILY PRN 08/13/19 - Past Medical/Surgical History Diabetic: No -: Lung cancer suspect stage IV on chemotherapy -: COPD -: History of thyroid cancer -: History of IBS -: IBS -: Thyroid surgery -: gallbladder -: tubal ligation Psychosocial/ Personal History: Patient originally from [facility], getting most of her cancer care in [place] at [facility]. Patient was visiting in the area. - Family History Father Medical History: Cancer Mother Medical History: Cancer - Social History Alcohol use: No CD- Drugs: No Caffeine use: Yes Place of Residence: Home Review of Systems 10-point ROS is otherwise unremarkable General: Weakness Respiratory: Cough, Shortness of Breath Physical Examination Temp Pulse Resp BP Pulse Ox 97.6 F 87 22 H 163/80 H 99 08/23/19 11:05 08/23/19 11:05 08/23/19 11:05 08/23/19 11:05 08/23/19 11:05 General: Alert, In no apparent distress, Oriented x3 HEENT: Atraumatic Neck: Supple Respiratory: Expiratory wheezes Cardiovascular: No edema, Regular rate/rhythm, Normal S1 S2 - Problems (1) COPD exacerbation Current Visit: No Status: Acute Plan: Patient is 73 years of age admitted with COPD exacerbation blood cultures are positive for Gram negative rods/the urinary origin patient is on levofloxacin and vancomycin white count is declining pro calcitonin is significantly elevated consistent with a bacteremia oxygenation satisfactory change prednisone to p.o. I have added Dalresp patient is requesting an nebulize saline urine culture is also positive for Gram negative rods quite possible that she is bacteremia from a urinary tract infection
[2019-08-23] MEDS ORDERED: FUROSEMIDE 40 MG/4 ML VIAL IV ONE (12:27)
[2019-08-23] MEDS: ALPRAZOLAM 0.25 MG TABLET PO PRN (13:00)
--- NOTE | 2019-08-23 14:01 | RAD REPORT ---
EXAM DESCRIPTION: RAD - Chest Single View - 08/23/2019 12:57 pm CLINICAL HISTORY: Shortness of breath COMPARISON: August 21 TECHNIQUE: AP portable chest image was obtained 1255 hours . FINDINGS: Right apex opacification and right perihilar opacification unchanged. Left subclavian Port -A-Cath is in place. Stranding extends into the medial right lung base. No new or progressive lung pa renchymal process. Heart and vasculature are normal. No measurable pleural effusion and no pneumothor ax. No acute bony abnormality seen. No acute aortic findings suspected. IMPRESSION: No new or progressive cardiopulmonary finding from August 21.
[2019-08-23] MEDS: predniSONE 20 MG TAB PO SCH (21:36)
[2019-08-24] MEDS: HEPARIN 5000 UNIT/ML 1 ML VIAL SQ SCH ×3 (00:33→17:23)
[2019-08-24] MEDS: ALPRAZOLAM 0.25 MG TABLET PO PRN ×2 (00:33→21:35)
[2019-08-24] MEDS: ACETAMINOPHEN 500 MG TAB PO PRN ×2 (00:57→21:35)
[2019-08-24] MEDS ORDERED: Levofloxacin 750mg IV 750 MG/150 ML BAG IV SCH (01:00)
[2019-08-24] MEDS: ALBUTEROL 2.5 MG/3 ML NEB SOL NEB SCH ×6 (01:05→20:00)
[2019-08-24] MEDS: IPRATROPIUM BROM 0.5MG/2.5ML NEB SCH ×4 (01:05→20:00)
[2019-08-24] MEDS: VANCOMYCIN 1.25 GM in NA CHLORIDE 0.9% 250 ML IVPB SCH (02:00)
[2019-08-24] MEDS: LEVOTHYROXINE SOD 0.125 MG TAB PO SCH (05:37)
[2019-08-24] MEDS: INSULIN -REGULAR HUMAN 50 UNIT/0.5 ML ML SQ SCH ×4 (07:30→21:36)
[2019-08-24] MEDS: ARFORMOTEROL TARTRATE 15 MCG/2 ML VIAL.NEB NEB SCH ×2 (08:15→20:00)
--- NOTE | 2019-08-24 08:24 | CON ---
History Of Present Illness: This is a 73-year-old female with significant history of COPD exacerbati on. Patient came initially with shortness of breath. Denies any chest pain, fevers, or any other di scomfort. Patient's granddaughter had respiratory viral infection, which she believes she got also p atient. Patient is feeling slightly better today. Past Medical History: COPD with history of lung cancer and Pancoast tumor, currently on chemotherapy ; thyroid cancer and irritable bowel syndrome, status post thyroid surgery. Medications: Include albuterol, Wellbutrin, Combivent, levothyroxine, metoprolol, prednisone. Social History: Nonsmoker, nondrinker. Family History: Noncontributory. Review of Systems: A 10-point review was performed. Physical Examination: General: This is a 73-year-old female, lying in bed, not in any acute cardiopulmonary distress. Vital Signs: Temperature 98, pulse 108, respirations 24, blood pressure 135/81. HEENT: Unremarkable. Neck: Supple. Lungs: Right-sided wheezing heard. Decreased breath on both sides. Heart: S1 and S2 regular. Abdomen: Soft, nontender. Bowel sounds present. Extremities: No edema. Laboratory Data: WBC 11.8, hemoglobin 10.7, platelets are 71. Chemistry shows sodium 141, potassium 3.9, chloride 111, bicarb 26, BUN 19, creatinine 0.58, glucose 146. Micro data shows urine cultures are growing more than 100,000 gram-negative rods. Blood cultures, gram-negative rods and gram stain , but no growth in the cultures. Assessment/plan: Chronic obstructive pulmonary disease exacerbation. This is a 73-year-old female w ith urinary tract infection secondary to gram-negative carly, currently being treated with vancomycin a nd Levaquin. We will recommend to continue Levaquin for 2 weeks. We will stop vancomycin on dischar ge. We will follow the patient closely. Thank you Dr. Isidro for consult. NF/JULIETAL Voice ID: [id number] Report ID: [id number]
[2019-08-24] MEDS ORDERED: Meropenem 1000 MG/VIAL IV SCH (09:00)
[2019-08-24] MEDS: PRAMIPEXOLE 0.25 MG TAB PO SCH ×3 (09:34→21:35)
[2019-08-24] MEDS: ROFLUMILAST 500 MCG TABLET PO SCH (09:34)
[2019-08-24] MEDS: predniSONE 20 MG TAB PO SCH ×2 (09:34→21:35)
--- NOTE | 2019-08-24 09:43 | P.PN ---
Subjective Date of Service: 08/24/19 Chief Complaint: Respiratory distress blood cultures positive Feeling better Blood pressure is stable Denies any chest pain or shortness of breath No fever no chills Review of Systems 10-point ROS is otherwise unremarkable ENT: Unremarkable Respiratory: Unremarkable Physical Examination - Vital Signs Temperature: 97.6 F Blood Pressure: 151/70 Pulse: 108 Respirations: 20 Pulse Ox (%): 96 - Physical Exam General: Alert, In no apparent distress, Oriented x3 HEENT: Atraumatic, Normocephalic Neck: Supple Respiratory: Diminished, Crackles/rales, Expiratory wheezes Cardiovascular: Regular rate/rhythm, Normal S1 S2 Gastrointestinal: Soft and benign, W/out hepatosplenomegaly Musculoskeletal: No clubbing, No swelling Integumentary: No rashes Neurological: Normal speech, Normal strength at 5/5 x4 extr Lymphatics: No axilla or inguinal lymphadenopathy External genitalia: Deferred Rectal: Deferred - Studies Microbiology Data (last 24 hrs): 08/21/19 19:55 Blood - Blood Aerobic Blood Culture - Final Escherichia Coli Esbl 08/21/19 19:55 Blood - Blood Gram Stain - Final 08/21/19 19:55 Blood - Blood Anaerobic Blood Culture - Final 08/21/19 19:25 Blood - Blood Aerobic Blood Culture - Final Escherichia Coli Esbl 08/21/19 19:25 Blood - Blood Gram Stain - Final 08/21/19 19:25 Blood - Blood Anaerobic Blood Culture - Final Escherichia Coli Esbl 08/21/19 19:25 Blood - Blood Gram Stain - Final Assessment & Plan - Problems (Diagnosis) (1) Chronic respiratory failure with hypoxia Current Visit: Yes Status: Acute Plan: Acute on chronic hypoxic respiratory failure On oxygen supplementation Continue bronchodilator and steroids pulmonology consult appreciated (2) Hypotension Current Visit: Yes Status: Acute Plan: Resolved Probably related to sepsis On IV hydration Normotensive now (3) RSV bronchitis Current Visit: Yes Status: Acute Plan: Supportive management (4) Sepsis Current Visit: Yes Status: Acute Plan: admitted to ICU Aggressive hydration Blood cultures positive for ESBL Appreciate ID consult Changed antibiotics as per sensitivity (5) COPD exacerbation Current Visit: No Status: Acute Plan: on bronchodilators, steroids Continue home medications and titrate as needed Discharge Plan: Group Home Plan to discharge in: 48 Hours Physician Review: Patient Assessed, Agree with Above Assessment and Plan Time Spent Managing Pts Care (In Minutes): 42
[2019-08-24] MEDS: Meropenem 1,000 MG in NA CHLORIDE 0.9% 100 ML IV SCH ×2 (09:55→17:23)
[2019-08-24 10:00] LABS: Absolute Lymphocytes (CBC) 0.2 K/uL (0.7-4.9); Basophils % 0.1 % (0-1.3); Hematocrit 32.9 % (36.0-45.0); MPV 9.5 fL (7.6-11.3); RBC Red Blood Cell Count 4.38 M/uL (3.86-4.86)
[2019-08-24 10:25] LABS: Urine White Blood Cell Casts OK
[2019-08-24 10:26] LABS: Anisocytosis 1+; Blood Morphology Comment NOTED (NOT SEEN); Platelet Estimate DECR
[2019-08-24 11:29] LABS: Potassium 3.6 mmol/L (3.5-5.1)
--- NOTE | 2019-08-24 15:08 | PN ---
Subjective: Patient sitting in bed. Denies any headache, nausea, vomiting, chest pain, abdominal pa in, constipation, or diarrhea. Objective: Vital Signs: Temperature 97, pulse 108, respirations 20, blood pressure 150/70. Lungs: Basal crackles and scattered wheezing. Heart: S1, S2. Regular. Abdomen: Soft, nontender. Bowel sounds present. Assessment And Plan: Chronic obstructive pulmonary disease exacerbation with hypoxia, respiratory sy ncytial virus, bronchitis; sepsis improved; hypertension, improving. Continue antibiotic and support jai care. We will follow the patient as needed. NF/MODL Voice ID: [id number] Report ID: [id number]
[2019-08-25] MEDS: Meropenem 1,000 MG in NA CHLORIDE 0.9% 100 ML IV SCH ×3 (00:29→16:54)
[2019-08-25] MEDS: HEPARIN 5000 UNIT/ML 1 ML VIAL SQ SCH ×3 (00:29→16:57)
[2019-08-25] MEDS: IPRATROPIUM BROM 0.5MG/2.5ML NEB SCH ×4 (02:00→20:00)
[2019-08-25] MEDS: ALBUTEROL 2.5 MG/3 ML NEB SOL NEB SCH ×6 (04:00→20:00)
[2019-08-25] MEDS: ACETAMINOPHEN 500 MG TAB PO PRN (04:18)
[2019-08-25] MEDS: ALPRAZOLAM 0.25 MG TABLET PO PRN ×2 (04:18→21:52)
[2019-08-25 04:42] LABS: Absolute Lymphocytes (CBC) 0.1 K/uL (0.7-4.9); Hematocrit 31.3 % (36.0-45.0); Lymphocytes % 3.3 % (15.3-44.8); MPV 9.2 fL (7.6-11.3); RBC Red Blood Cell Count 4.21 M/uL (3.86-4.86)
[2019-08-25 04:49] LABS: BUN Blood Urea Nitrogen 16 mg/dL (7-18); Bicarbonate 32 mmol/L (21-32); Glucose Level 103 mg/dL (74-106); Potassium 3.8 mmol/L (3.5-5.1); Sodium Level 145 mmol/L (136-145)
[2019-08-25] MEDS: LEVOTHYROXINE SOD 0.125 MG TAB PO SCH (05:06)
[2019-08-25] MEDS: INSULIN -REGULAR HUMAN 50 UNIT/0.5 ML ML SQ SCH ×4 (07:30→21:00)
[2019-08-25] MEDS: ARFORMOTEROL TARTRATE 15 MCG/2 ML VIAL.NEB NEB SCH ×2 (08:14→20:00)
[2019-08-25] MEDS: ROFLUMILAST 500 MCG TABLET PO SCH (09:05)
[2019-08-25] MEDS: PRAMIPEXOLE 0.25 MG TAB PO SCH ×3 (09:05→21:53)
[2019-08-25] MEDS: predniSONE 20 MG TAB PO SCH ×2 (09:05→21:45)
[2019-08-25] MEDS ORDERED: ALTEPLASE 2 MG/VIAL IV SCH (10:00)
[2019-08-25] MEDS ORDERED: WATER FOR INJ,STERILE 10 ML IV SCH (10:00)
--- NOTE | 2019-08-25 11:10 | P.PN ---
Subjective Date of Service: 08/25/19 Chief Complaint: Respiratory distress blood cultures positive Feeling better Denies any chest pain or shortness of breath No fever no chills Review of Systems 10-point ROS is otherwise unremarkable ENT: Unremarkable Respiratory: Unremarkable Physical Examination - Vital Signs Temperature: 97.3 F Blood Pressure: 165/77 Pulse: 100 Respirations: 19 Pulse Ox (%): 99 - Physical Exam General: Alert, In no apparent distress HEENT: Atraumatic, Normocephalic Neck: Supple, 2+ carotid pulse no bruit Respiratory: Normal air movement, Expiratory wheezes Cardiovascular: Regular rate/rhythm, Normal S1 S2 Capillary refill: <2 Seconds Gastrointestinal: Soft and benign, W/out hepatosplenomegaly Musculoskeletal: No clubbing, No swelling Integumentary: No rashes, No breakdown Neurological: Normal speech, Normal strength at 5/5 x4 extr External genitalia: Deferred Rectal: Deferred - Studies Microbiology Data (last 24 hrs): 08/21/19 19:55 Blood - Blood Aerobic Blood Culture - Final Escherichia Coli Esbl 08/21/19 19:55 Blood - Blood Gram Stain - Final 08/21/19 19:55 Blood - Blood Anaerobic Blood Culture - Final 08/21/19 19:25 Blood - Blood Aerobic Blood Culture - Final Escherichia Coli Esbl 08/21/19 19:25 Blood - Blood Gram Stain - Final 08/21/19 19:25 Blood - Blood Anaerobic Blood Culture - Final Escherichia Coli Esbl 08/21/19 19:25 Blood - Blood Gram Stain - Final Assessment & Plan - Problems (Diagnosis) (1) Chronic respiratory failure with hypoxia Current Visit: Yes Status: Acute Plan: Acute on chronic hypoxic respiratory failure On oxygen supplementation Continue bronchodilator and steroids pulmonology consult appreciated (2) Hypotension Current Visit: Yes Status: Acute Plan: Resolved Normotensive now (3) RSV bronchitis Current Visit: Yes Status: Acute Plan: Supportive management (4) Sepsis Current Visit: Yes Status: Acute Plan: Blood cultures positive for ESBL Appreciate ID consult Changed antibiotics as per sensitivity (5) COPD exacerbation Current Visit: No Status: Acute Plan: on bronchodilators, steroids Continue home medications and titrate as needed ID recommended to continue antibiotics will get repeated cultures Patient's primary oncologist , Shaila Grimaldo MD was contacted @ [phone] Discussed about accessing Port-A-Cath for IV antibiotics She Okyed use of Port a Cath Awaiting set up of antibiotics Physician Review: Patient Assessed, Agree with Above Assessment and Plan Time Spent Managing Pts Care (In Minutes): 43
[2019-08-26] MEDS: Meropenem 1,000 MG in NA CHLORIDE 0.9% 100 ML IV SCH ×2 (00:36→08:48)
[2019-08-26] MEDS: HEPARIN 5000 UNIT/ML 1 ML VIAL SQ SCH ×2 (01:00→08:29)
[2019-08-26] MEDS: IPRATROPIUM BROM 0.5MG/2.5ML NEB SCH ×2 (02:00→08:10)
[2019-08-26] MEDS: ALBUTEROL 2.5 MG/3 ML NEB SOL NEB SCH ×3 (04:00→08:10)
[2019-08-26 05:52] LABS: Absolute Lymphocytes (CBC) 0.3 K/uL (0.7-4.9); Basophils % 0.1 % (0-1.3); Hematocrit 32.9 % (36.0-45.0); Lymphocytes % 6.6 % (15.3-44.8); RBC Red Blood Cell Count 4.41 M/uL (3.86-4.86)
[2019-08-26 06:00] LABS: BUN Blood Urea Nitrogen 11 mg/dL (7-18); Bicarbonate 39 mmol/L (21-32); Glucose Level 163 mg/dL (74-106); Magnesium 1.7 mg/dL (1.8-2.4); Potassium 3.7 mmol/L (3.5-5.1); Sodium Level 144 mmol/L (136-145)
[2019-08-26] MEDS: LEVOTHYROXINE SOD 0.125 MG TAB PO SCH (07:22)
[2019-08-26] MEDS: ARFORMOTEROL TARTRATE 15 MCG/2 ML VIAL.NEB NEB SCH (08:00)
[2019-08-26] MEDS ORDERED: FORMOTEROL FUMARATE 20 MCG/2 ML VIAL.NEB IH SCH (08:00)
[2019-08-26] MEDS: INSULIN -REGULAR HUMAN 50 UNIT/0.5 ML ML SQ SCH ×2 (08:27→11:30)
[2019-08-26] MEDS: predniSONE 20 MG TAB PO SCH (08:29)
[2019-08-26] MEDS: ROFLUMILAST 500 MCG TABLET PO SCH (08:29)
[2019-08-26] MEDS: PRAMIPEXOLE 0.25 MG TAB PO SCH (08:29)
[2019-08-26] MEDS ORDERED: MAGNESIUM SULFATE 1 gm IVPB 1 GM/100 ML BAG IV ONE (09:00)
[2019-08-26] MEDS ORDERED: POTASSIUM CL SA 10 MEQ TAB PO ONE (09:00)
[2019-08-26] MEDS ORDERED: ERTAPENEM NA 1 GM in NA CHLORIDE 0.9% 100 ML IVPB ONE (10:00)
--- NOTE | 2019-08-26 11:37 | P.DS ---
Admission Date: 08/21/19 Discharge Date: 08/26/19 Disposition: DC HOME/HOME HEALTH CARE Reason for Admission: Respiratory distress blood cultures positive - Problems (1) Chronic respiratory failure with hypoxia Status: Acute (2) Hypotension Status: Acute (3) RSV bronchitis Status: Acute (4) Sepsis Status: Acute (5) COPD exacerbation Status: Acute Brief History of Present Illness: 73-year-old woman with a history of lung cancer/Pancoast tumor currently on chemotherapy, history of advanced COPD presented to the emergency department with a complaint of progressive shortness of breath of 2 days duration. Patient stated she was also wheezing. Her symptoms did not respond to her home nebulizers and bronchodilators. The patient was hospitalized a week ago for COPD exacerbation and acute respiratory failure where she got intubated in the emergency department and placed on a mechanical ventilator She clinically improved and was subsequently discharged with a prednisone taper which she completed. She is on prednisone maintenance therapy for COPD. She was maintained on her home oxygen in the ED today. Her respiratory status partially improved with IV Solu-Medrol, and Xopenex nebulizer. Her nasal swab tested positive for RSV. Her procalcitonin was severely elevated to 99. Patient is admitted for further management. Hospital Course: The patient was initially admitted to the ICU and was started on bronchodilators , steroids and oxygen supplementation . Pulmonology was consulted. She had an episode of hypertension for which she had she was started on Levophed and IV fluids. Pressors was titrated off and was started on broad- spectrum antibiotic after getting cultures . Had urine cultures and blood cultures were positive for ESBL. Infectious disease was consulted and was started on meropenem. Her blood pressure is improved. And has been doing that and wanted to go home. ID recommended total of 14 days of IV antibiotic. Case management was consulted for home health and IV antibiotic therapy Patient's primary oncologist , Shaila Grimaldo MD was contacted @ [phone] Discussed about accessing Port-A-Cath for IV antibiotics , She Okyed use of Port a Cath The patient is being discharged home today in a stable condition with advice to follow up with PCP in 1 week and with pulmonology and Infectious Disease in 1-2 weeks . She has an appointment with her primary oncologist in the near future as well. Vital Signs/Physical Exam: Temp Pulse Resp BP Pulse Ox 97.4 F 102 H 18 170/84 H 99 08/26/19 08:00 08/26/19 08:00 08/26/19 08:00 08/26/19 08:00 08/26/19 08:00 General: Alert, In no apparent distress HEENT: Atraumatic, Normocephalic Neck: Supple, 2+ carotid pulse no bruit Respiratory: Other (occasional wheezes ) Cardiovascular: Normal pulses, Regular rate/rhythm Gastrointestinal: Soft and benign, W/out hepatosplenomegaly Neurological: Normal speech, Normal strength at 5/5 x4 extr Laboratory Data at Discharge: WBC 4.3 K/uL (4.3-10.9) 08/26/19 05:28 Hgb 11.0 g/dL (12.0-15.0) L 08/26/19 05:28 Hct 32.9 % (36.0-45.0) L 08/26/19 05:28 Plt Count 66 K/uL (152-406) L 08/26/19 05:28 PT 14.2 SECONDS (9.5-12.5) H 08/21/19 19:05 INR 1.21 08/21/19 19:05 APTT 19.3 SECONDS (24.3-36.9) L 08/21/19 19:05 Sodium 144 mmol/L (136-145) 08/26/19 05:28 Potassium 3.7 mmol/L (3.5-5.1) 08/26/19 05:28 BUN 11 mg/dL (7-18) 08/26/19 05:28 Creatinine 0.49 mg/dL (0.55-1.3) L 08/26/19 05:28 Glucose 163 mg/dL (74-106) H 08/26/19 05:28 Phosphorus 3.5 mg/dL (2.5-4.9) 08/22/19 04:34 Magnesium 1.7 mg/dL (1.8-2.4) L 08/26/19 05:28 Total Bilirubin 0.4 mg/dL (0.2-1.0) 08/23/19 08:35 AST 18 U/L (15-37) 08/23/19 08:35 ALT 22 U/L (12-78) 08/23/19 08:35 Alkaline Phosphatase 81 U/L (45-117) 08/23/19 08:35 Troponin I 0.02 ng/mL (0.0-0.045) 08/22/19 07:54 Lipase 31 U/L (73-393) L 08/21/19 19:05 Home Medications: Albuterol Neb [Proventil 0.083% Neb Soln] 3 ml IH Q6HP PRN 08/13/19 Arformoterol Tartrate [Brovana] 1 puff IH BID 08/13/19 Bupropion *Xl* [Wellbutrin XL*] 150 mg PO DAILY 08/13/19 Ipratropium/Albuterol Sulfate [Iprat-Albut 0.5-3(2.5) mg/3 ml] 3 ml IH Q6H PRN 08/13/19 Levothyroxine [Synthroid*] 2 tab PO [id number] 08/13/19 Pramipexole [Mirapex*] 0.25 mg PO TID 08/13/19 Sodium Chloride For Inhalation [Nebusal] 1 vial IH BID PRN 08/13/19 predniSONE [Prednisone*] 1 tab PO DAILY PRN 08/13/19 Ertapenem Na [Invanz] 1 gm IJ DAILY #8 vial 08/26/19 Formoterol Fumarate [Perforomist*] 20 mcg IH BIDRESP #1 vial.neb 08/26/19 Roflumilast [Daliresp*] 500 mcg PO DAILY #15 tablet 08/26/19 guaiFENesin [Robitussin 100MG/5ML*] 10 ml PO QID PRN #1 ucup 08/26/19 predniSONE [Prednisone*] 20 mg PO BID #10 tab 08/26/19 New Medications: Ertapenem Na [Invanz] 1 gm IJ DAILY #8 vial Formoterol Fumarate [Perforomist*] 20 mcg IH BIDRESP #1 vial.neb guaiFENesin [Robitussin 100MG/5ML*] 10 ml PO QID PRN #1 ucup PRN Reason: Cough predniSONE [Prednisone*] 20 mg PO BID #10 tab Roflumilast [Daliresp*] 500 mcg PO DAILY #15 tablet Diet: AHA Activity: Ad mavis Followup: Dick Rose MD [ACTIVE - CAN ADMIT] - Jag Rowley MD [ACTIVE - CAN ADMIT] - Time spent managing pt's care (in minutes): 43
[2019-08-26 12:34] VITALS: O2SAT 100
[2019-08-26 12:52] VITALS: BP 183/89; TEMP 98.3
== END 2019-08-26 13:02 | disposition home health service (06) | DRG 871 ==
LOC: ER 18:50 → ERHOLD 22:07 → 3RD-ICU 23:08 → 4TH 08-22 15:40
PROVIDERS: ADMIT Internal Medicine; ATTEND Internal Medicine
DX: A41.51 Sepsis due to Escherichia coli [E. coli] (principal); J96.21 Acute and chronic respiratory failure with hypoxia; J44.0 Chronic obstructive pulmonary disease with (acute) lower respiratory infection; J44.1 Chronic obstructive pulmonary disease with (acute) exacerbation; Z16.12 Extended spectrum beta lactamase (ESBL) resistance; C34.90 Malignant neoplasm of unspecified part of unspecified bronchus or lung; J20.5 Acute bronchitis due to respiratory syncytial virus; I95.9 Hypotension, unspecified; Z85.850 Personal history of malignant neoplasm of thyroid
CPT/HCPCS: 36415; 71045; 80048; 80053; 80076; 80202; 81001; 82550; 82553; 82947; 83605; 83690; 83735; 84100; 84145; 84443; 84484; 85025; 85610; 85730; 87040; 87077; 87086; 87088; 87186; 87205; 87804; 87807; 93005; 94640; 99285; J0696; J1335; J1644; J1940; J2920; J2930; J2997; J3475; J7030; J7040; J7512; J7605

== ENCOUNTER 2019-09-20 07:24 | Inpatient (IN) | payer OTHER ==
--- OUTSIDE RECORDS SUMMARY | 2019-09-20 07:28 | XMS REPORT ---
:1945 [facility] Address [facility]ly [facility], [facility]–[id number] Jose Elias Denny [address] [place] [address] Care Team Providers Name Role Phone POLLO [...] Hematology (test code=POLY) SLIGHT=2-3 cells (100X) 0-2/hpf [id number] 06:09:00 Test Item Value Reference Range Comments [...] 83-110 Chemistry (test code=CA) 9.3 mg/dL 7.8-10.44 [id number] 07:57:00 Test Item Value Reference Range Comments [...] 2 % 0-10 Hematology (test code=MC) Normal [id number] 07:30:00 Test Item Value Reference Range Comments [...] (test code=CA) 8.6 mg/dL 7.8-10.44 ABG's - [id number] 05:37:00 Test Item Value Reference Range Comments [...] ABG's - Cardiopulmonary (test code=MODE) SIMV Culture, [id number] 09:49:00 Test Item Value Reference Range Comments Culture, Urine (test code=URC) NG48 ABG's - [id number] 07:22:00 Test Item Value Reference Range Comments [...] % ABG's - Cardiopulmonary (test code=MODE) SIMV.PSV [id number] 05:07:00 Test Item Value Reference Range Comments [...] 0-10 Hematology (test code=MY) 1 % 0-0 [id number] 04:36:00 Test Item Value Reference Range Comments [...] (test code=CA) 8.9 mg/dL 7.8-10.44 ABG's - [id number] 08:18:00 Test Item Value Reference Range Comments [...] % ABG's - Cardiopulmonary (test code=MODE) SIMV.PSV [id number] 05:09:00 Test Item Value Reference Range Comments [...] 0-10 Hematology (test code=MO) 2 % 0-10 [id number] 05:08:00 Test Item Value Reference Range Comments [...] 83-110 Chemistry (test code=CA) 8.3 mg/dL 7.8-10.44 [id number] 16:32:00 Test Item Value Reference Range Comments Chemistry (test code=CK) 50 U/L 29-168 Chemistry - BNP, HgbA1c, [id number] 08:19:00 Test Item Value Reference Range Comments Chemistry - BNP, HgbA1c, PTHi (test code=BNP) 229.7 pg/mL 0-100 [id number] 08:06:00 Test Item Value Reference Range Comments Chemistry (test 0.022 ng/mL < 0.028 code=TROPI-R) Reference Range 0.00 - 0.028 ng/mL Negative 0.029 - 0.29 ng/mL Indeterminate Greater or Equal to 0.3 ng/mL Strongly suggests IA [id number] 08:01:00 Test Item Value Reference Range Comments [...] (test code=ALT) 89 U/L 8-55 ABG's - Syrgpaslmkzfgzi1368-14-71 07:54:00 Test Item Value Reference Range Comments [...] % ABG's - Cardiopulmonary (test code=MODE) SIMV/PS [id number] 07:44:00 Test Item Value Reference Range Comments [...] 0.0 thou/uL 0.0-0.2 [facility] [employer] Phys: [place] [address] : 1944 Age: 73 SEX:F [phone] Exam Date: 04/15/19 Status: ADMIN Acct: [id number] Loc: CCU Pt Unit #: [id number] Report #: [id number] CC: POLLO DA SILVA Thomas MD IMAGING SERVICES REPORT Order # Category/Exam [id number] RAD/XR Chest1 View Portable ([id number]): . Results PORTABLE CHEST: HISTORY: CCU and ventilator followup. COMPARISON: 04/14/2019. FINDINGS/IMPRESSION: ET tube and NG tube have been removed. MediPort catheter remains in position. Opacification in the right apical region is again noted. Left lung remains clear. No acute interval change. POS: [facility] Reported By: Geoffrey Culver MD Electronically Signed Date/Time: 04/15/19 0849 Technologist: HEIDI Dictated Date/Time: 04/15/19 0751 Transcribed Date/Time: 04/15/19 0846XR Chest [address] [facility] Pt Name: ZEINAB AVENDANO [employer] Phys: [place] [address] : 1945 Age: 73 SEX:F [phone] Exam Date: 04/14/19 Status: ADMIN Acct: [id number] Loc: CCU Pt Unit #: [id number] Report #: [id number] CC: POLLO DA SILVA Thomas MD IMAGING SERVICES REPORT Order # Category/Exam [id number] RAD/XR Chest1 View Portable ([id number]): . Results PORTABLE CHEST: Date: 04/14/19 INDICATION: [...] Transcribed Date/Time: 04/14/19 0819XR [facility] ZEINAB AVENDANO [employer] Phys: [place] [address] : 1945 Age: 73 SEX:F [phone] Exam Date: 04/13/19 Status: ADMIN Acct: [id number] Loc: CCU Pt Unit #: [id number] Report #: [id number] CC: POLLO DA SILVA Thomas MD IMAGING SERVICES REPORT Order # Category/Exam [id number] RAD/XR Chest1 View Portable ([id number]): . Results RADIOGRAPH CHEST 1 VIEW: DATE: [...] 04/13/19 0810 Transcribed Date/Time:[facility] ZEINAB AVENDANO [employer] Phys: [place] [address] : 1945 Age: 73 SEX:F [phone] Exam Date: 04/12/19 Status: ADMIN Acct: [id number] Loc: CCU Pt Unit #: [id number] Report #: [id number] CC: POLLO DA SILVA Thomas MD IMAGING SERVICES REPORT Order # Category/Exam [id number] RAD/XR Chest1 View Portable ([id number]): . Results Exam: Chest one view: HISTORY: [...] By: Clement Richmond MD Electronically Signed Date/Time: 128822 Technologist: HEIDI Dictated Date/Time: 0812 Transcribed Date/Time:US Venous Doppler Rt [facility] Pt Name: ZEINAB AVENDANO [employer] Phys: [place] [address] : 1945 Age: 73 SEX:F [phone] Exam Date : 04/11/19 Status: ADMIN Acct: [id number] Loc: CCU Pt Unit #: [id number] Report #: [id number] CC: POLLO DA SILVA David, MD ULTRASOUND REPORT Order # Category/Exam [id number] ULT/US Venous Doppler Rt Unil ([id number]): . Results Exam: Right lower extremity venous [...] Transcribed Date/Time :[facility] ZEINAB AVEND[facility]O [employer] Phys: Dariel Jacobs MD [place] [address] : 1945 Age: 73 SEX:F [phone] Exam Date: 04/11/19 Status: ADMIN Acct: [id number] Loc: CCU Pt Unit #: [id number] Report #: [id number] CC: POLLO DA SILVA Thomas MD IMAGING SERVICES REPORT Order # Category/Exam [id number] RAD/XR Chest1 View Portable ([id number]): . Results XR Chest 1 View Portable [...] Transcribed Date/ Time:XR [facility]: ZEINAB AVENDANO [address] [employer] Phys: [place] [address] : 1945 Age: 73 SEX:F [phone] Exam Date: 04/11/19 Status: REG ER Acct: [id number] Loc: ERS Pt Unit #: [id number] Report #: [id number] CC: SHABNAM VARGHESE DO IMAGING SERVICES REPORT Order # Category/Exam [id number] RAD/XR Chest 1 View Portable([id number]): . Results RADIOGRAPH CHEST 1 VIEW: DATE: [...]
[2019-09-20] MEDS ORDERED: LEVALBUTEROL 1.25 MG/3 ML NEB ONE (07:37)
[2019-09-20] MEDS ORDERED: IPRATROPIUM BROM 0.5MG/2.5ML ONE (07:37)
[2019-09-20 07:51] LABS: Absolute Lymphocytes (CBC) 0.3 K/uL (0.7-4.9); Basophils % 0.4 % (0-1.3); Hematocrit 34.2 % (36.0-45.0); Lymphocytes % 12.1 % (15.3-44.8); MPV 8.6 fL (7.6-11.3); RBC Red Blood Cell Count 4.46 M/uL (3.86-4.86)
[2019-09-20] MEDS ORDERED: ACETAMINOPHEN 500 MG TAB ONE (07:57)
[2019-09-20] MEDS ORDERED: Magnesium Sulfate 2gm IVPB 2 G/50 ML BAG IV ONE (08:05)
[2019-09-20] MEDS ORDERED: CEFTRIAXONE/SWI 1gm 1 GM/10 ML SYR ONE (08:05)
[2019-09-20] MEDS ORDERED: NA CHLORIDE 0.9% 1,000 ML ONE ×2 (08:05→10:12)
[2019-09-20 08:08] LABS: Albumin 2.6 g/dL (3.4-5.0); Bilirubin Direct 0.3 mg/dL (0-0.2); Bilirubin Total 0.6 mg/dL (0.2-1.0); CKMB Creatine Kinase MB 2.1 ng/mL (0.3-3.6); Potassium 4.5 mmol/L (3.5-5.1); Protein, Total 6.4 g/dL (6.4-8.2); Troponin (Emerg Dept Use Only) 0.11 ng/mL (0.0-0.045)
[2019-09-20] MEDS ORDERED: METHYLPREDNISOLONE 125 MG INJ ONE (08:10)
[2019-09-20 08:30] LABS: Urine Blood 2+ (NEG); Urine Glucose 3+ (NEG); Urine Protein 2+ (NEG); Urine pH 5.5 (5.0-7.0)
[2019-09-20 08:37] LABS: Urine Bacteria 20-50 /HPF (<20)
[2019-09-20 08:38] LABS: Urine Culture Reflex Order NOT NEEDED
[2019-09-20 08:40] LABS: Protime INR 1.04
--- NOTE | 2019-09-20 08:52 | EDPHYS ---
Physician Documentation [facility] Name: Fela Mustafa Age: 74 yrs Sex: Female : 1945 Arrival Date: 09/20/2019 Time: 07:25 Bed 4 Private MD: ED Physician Pawan Esposito HPI: 09/20 08:46 This 74 yrs old Female presents to ER via EMS with complaints of Breathing ma2 Difficulty. 08:46 The patient has shortness of breath at rest. Onset: The symptoms/episode began/occurred ma2 gradually, 2 day(s) ago. Associated signs and symptoms: Pertinent positives: non-productive cough, productive cough, nausea, Pertinent negatives: hemoptysis. Severity of symptoms: At their worst the symptoms were mild in the emergency department the symptoms are unchanged. The patient has not experienced similar symptoms in the past. Historical: - Allergies: 07:29 No Known Allergies; ss - Home Meds: 08:30 metoprolol succinate 25 mg oral Tb24 1 tab once daily [Active]; bupropion HCl 150 mg ph Oral TbER 1 tab once daily [Active]; montelukast 4 mg oral chew daily [Active]; pramipexole 0.25 mg oral tab 1 tab 3 times per day [Active]; levothyroxine 125 mcg tab 2 tabs once daily [Active]; pantoprazole 40 mg oral TbEC 1 tab once daily [Active]; ondansetron HCl 8 mg Oral tab 1 tab every 8 hours [Active]; Qvar 80 mcg/actuation inhalation aero [Active]; Claritin-D 12 Hour 5-120 mg Oral Tb12 1 tab every 12 hours [Active]; - PMHx: 07:29 COPD; heart issues; Lung CA; ss - Immunization history:: Adult Immunizations unknown. - Social history:: Smoking status: Patient uses tobacco products, 1/4 ppd, Patient/guardian denies using alcohol, street drugs, The patient lives with family. - Ebola Screening: : No symptoms or risks identified at this time. - Family history:: not pertinent. - Hospitalizations: : No recent hospitalization is reported. ROS: 08:46 Constitutional: Negative for fever, chills, and weight loss. ma2 08:46 All other systems are negative. Exam: 08:46 Constitutional: This is a well developed, well nourished patient who is awake, alert, ma2 and in no acute distress. Chest/axilla: Normal chest wall appearance and motion. Nontender with no deformity. No lesions are appreciated. Cardiovascular: Regular rate and rhythm with a normal S1 and S2. No gallops, murmurs, or rubs. Normal PMI, no JVD. No pulse deficits. Abdomen/GI: Soft, non-tender, with normal bowel sounds. No distension or tympany. No guarding or rebound. No evidence of tenderness throughout. Skin: Warm, dry with normal turgor. Normal color with no rashes, no lesions, and no evidence of cellulitis. MS/ Extremity: Pulses equal, no cyanosis. Neurovascular intact. Full, normal range of motion. Neuro: Awake and alert, GCS 15, oriented to person, place, time, and situation. Cranial nerves II-XII grossly intact. Motor strength 5/5 in all extremities. Sensory grossly intact. Cerebellar exam normal. Normal gait. 08:46 Respiratory: severe repiratory distress is noted, Respirations: labored breathing, Breath sounds: wheezing: expiratory is heard diffusely. Vital Signs: 07:25 BP 185 / 130; Pulse 158; Resp 36; Temp 103.2; Pulse Ox 93% on 4 lpm NC; Weight 76.2 kg; ph 08:18 BP 85 / 65; Pulse 130; Resp 26; Temp 103.1; Pulse Ox 100% on BiPAP; ph 08:33 BP 83 / 57; Pulse 128; Resp 32; Temp 102.5; Pulse Ox 100% on BiPAP; ph 09:13 BP 88 / 55; Pulse 114; Resp 26; Temp 100.8(C); Pulse Ox 100% on BiPAP; ph 09:50 BP 97 / 58; Pulse 109; Resp 24; Temp 100.1; Pulse Ox 100% on BiPAP; jl7 10:15 BP 101 / 74; Pulse 109; Resp 24; Temp 100.1(C); Pulse Ox 100% on BiPAP; ph 10:40 BP 110 / 72; Pulse 105; Resp 24; Temp 99.8(C); Pulse Ox 100% on BiPAP; ph 11:50 BP 119 / 81; Pulse 103; Resp 20; Temp 98.7(C); Pulse Ox 99% on BiPAP; ph 12:42 BP 114 / 63; Pulse 101; Resp 20; Temp 98.3(C); Pulse Ox 99% on BiPAP; ph 13:30 BP 115 / 70; Pulse 102; Resp 20; Temp 98.0; Pulse Ox 99% on BiPAP; ph MDM: 07:29 Patient medically screened. la2 08:46 Differential diagnosis: Anemia Bronchitis CHF exacerbation, Chronic Obstructive ma2 Pulmonary Disease pneumonia, reactive airway disease. Data reviewed: vital signs, nurses notes, EKG, radiologic studies. Sepsis 6 hour Focused Exam: Focused assessment performed: September 20, 2019 at 08:48 Heart: Regular rate/rhythm. Lungs: Crackles noted. Skin examination performed. Skin noted to be diaphoretic. Passive leg raise examination performed. Neuro: Patient's neurological exam has improved from previous exam. Cardio: Cardiovascular exam improved from previous exam. Heart rate and blood pressure have improved. Respiratory: Respiratory exam improved from previous exam. Counseling: I had a detailed discussion with the patient and/or guardian regarding: the historical points, exam findings, and any diagnostic results supporting the discharge/admit diagnosis, the presence of at least one elevated blood pressure reading (>120/80) during this emergency department visit. Response to treatment: the patient's symptoms have markedly improved after treatment. 09/20 07:31 [facility] name: Blood Culture [facility] 09/[facility] 07:31 Order name: BMP [facility] 09/20 07:31 Order name: CBC with Diff [facility] 09/20 07:31 Order name: Ckmb [facility] 09/20 07:31 Order name: CPK [facility] 09/20 07:31 Order name: D-Dimer [facility] 09/20 07:31 Order name: Hepatic Function [facility] 09/20 07:31 Order name: Lipase [facility] 09/20 07:31 Order name: Magnesium [facility] 09/20 07:31 Order name: NT PRO-BNP [facility] 09/20 07:31 Order name: PT-INR [facility] 09/20 07:31 Order name: Ptt, Activated [facility] 09/20 07:31 Order name: Troponin (emerg Dept Use Only) [facility] 09/20 07:31 Order name: Flu [facility] 09/20 07:31 Order name: Lactate [facility] 09/20 07:37 Order name: Procalcitonin 09/20 07:47 Order name: Glucose, Ancillary Testing; Complete Time: 09:08 EDMS 09/20 07:55 Order name: Urine Dipstick--Ancillary (enter results) 09/20 07:55 Order name: Urine Microscopic Only 09/20 07:55 Order name: Urine Culture 09/20 07:58 Order name: CBC with Automated Diff; Complete Time: 09:45 EDMS 09/20 08:08 Order name: Basic Metabolic Panel; Complete Time: 09:08 EDMS 09/20 08:08 Order name: Liver (Hepatic) Function; Complete Time: 09:08 EDMS 09/20 08:08 Order name: Creatine Phosphokinase; Complete Time: 09:08 EDMS 09/20 08:08 Order name: CKMB Creatine Kinase MB; Complete Time: 09:08 EDMS 09/20 08:08 Order name: Troponin (Emerg Dept Use Only); Complete Time: 09:08 EDMS 09/20 08:08 Order name: NT PRO-BNP; Complete Time: 09:08 EDMS 09/20 08:08 Order name: Magnesium; Complete Time: 09:08 EDMS 09/20 08:08 Order name: Lipase; Complete Time: 09:08 EDMS 09/20 08:11 Order name: Lactate; Complete Time: 09:08 EDMS 09/20 07:31 Order name: BIPAP [facility] 09/20 07:31 Order name: XRAY CXR (1 view) [facility] 09/20 07:31 Order name: EKG; Complete Time: 07:33 la2 09/20 07:31 Order name: Cardiac monitoring; Complete Time: 07:51 [facility] 09/20 07:31 Order name: EKG - Nurse/Tech; Complete Time: 07:51 la2 09/20 07:31 Order name: IV Saline Lock; Complete Time: 07:51 la2 09/20 07:31 Order name: Labs collected and sent; Complete Time: 07:51 ma2 09/20 07:31 Order name: O2 Per Protocol; Complete Time: 08:18 ma2 09/20 07:31 Order name: O2 Sat Monitoring; Complete Time: 08:18 la2 09/20 07:51 Order name: Dorsey; Complete Time: 07:51 ph 09/20 08:19 Order name: Influenza Screen (A ; Complete Time: 09:08 EDMS 09/20 08:27 Order name: Procalcitonin; Complete Time: 09:08 EDMS 09/20 08:30 Order name: Urine Dipstick-Ancillary; Complete Time: 09:08 EDMS 09/20 08:38 Order name: Urine Microscopic Only; Complete Time: 09:08 EDMS 09/20 08:43 Order name: Protime (+INR); Complete Time: 09:08 EDMS 09/20 08:43 Order name: PTT, Activated Partial Thromb; Complete Time: 09:08 EDMS 09/20 08:43 Order name: D-Dimer; Complete Time: 09:08 EDMS 09/20 09:24 Order name: RAD; Complete Time: 09:45 EDMS 09/20 09:25 Order name: CBC Smear Scan; Complete Time: 09:45 EDMS 09/20 10:14 Order name: Labs collected and sent: REPEAT LACTATE DUE; Complete Time: 10:24 ss 09/20 10:50 Order name: Lactate Sepsis 2 HR Follow-up EDMS Administered Medications: 07:35 Drug: Xopenex 1.25 mg Route: Inhalation; ph 07:35 Drug: AtroVENT Aerosol 0.5 mg Route: Inhalation; ph 07:55 Drug: AtroVENT Aerosol 0.5 mg Route: Inhalation; ph 08:10 Drug: Rocephin 1 grams Route: IV; Rate: calculated rate; Site: right antecubital; ph 08:25 Follow up: Response: No adverse reaction; IV Status: Completed infusion ph 08:10 Drug: NS 0.9% 1000 ml Route: IV; Rate: 1 bolus; Site: right antecubital; ph 09:33 Follow up: Response: No adverse reaction; IV Status: Completed infusion; IV Intake: ph 1000ml 08:10 Drug: Tylenol 1000 mg Route: PO; ph 09:33 Follow up: Response: No adverse reaction; Temperature is decreased ph 08:12 Drug: AtroVENT Aerosol 0.5 mg Route: Inhalation; ph 09:30 Follow up: Response: No adverse reaction ph 08:12 Drug: Magnesium Sulfate 2 grams Route: IVPB; Infused Over: 2 hrs; Site: right ph antecubital; 09:34 Follow up: Response: No adverse reaction; IV Status: Completed infusion; IV Intake: ph 100ml 08:13 Drug: SOLU-Medrol 125 mg {Note: 62.5 mg dose given , 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.} Route: IVP; Site: left antecubital; 09:31 Follow up: Response: No adverse reaction ph 09:10 Drug: AZITHromycin 500 mg Route: IVPB; Infused Over: 1 hrs; Site: left antecubital; ph 09:45 Drug: Lovenox 1 mg/kg Route: Sub-Q; Site: right lower abdomen; ph 10:00 Follow up: Response: No adverse reaction ph 10:00 Drug: NS 0.9% 1000 ml Route: IV; Rate: 1 bolus; Site: left antecubital; ph 11:30 Follow up: Response: No adverse reaction; IV Status: Completed infusion ph Point of Care Testing: Blood Glucose: 07:35 Blood Glucose: 203 mg/dL; ph Ranges: Critical Glucose Levels:Adult <50 mg/dl or >400 mg/dl <40 mg/dl or >180 mg/dl Disposition: 08:46 Critical Care:. ma2 Disposition: 09/20/19 08:50 Hospitalization ordered by Anshul Zambrano for Inpatient Admission. Preliminary diagnosis are Pneumonia due to other specified bacteria, Severe sepsis without septic shock, Chronic obstructive pulmonary disease with (acute) exacerbation, Cystitis, unspecified without hematuria, Non-ST elevation (NSTEMI) myocardial infarction. - Bed requested for Intensive Care Unit. - Status is Inpatient Admission. ss - Condition is Critical. - Problem is new. - Symptoms are unchanged. UTI on Admission? No Critical care time excluding procedures: 08:46 Critical care time: Bedside Care: 30 minutes, Consultation: 10 minutes, Family la2 Intervention: 5 minutes. Total time: 45 minutes Signatures: Dispatcher [employer] EDYvonne Rae RN RN Debi Edgar RN RN Pawan Esposito MD MD ma2 Corrections: (The following items were deleted from the chart) 09:10 08:50 Hospitalization Ordered by Kalyan Carmona DO for Inpatient Admission. Preliminary ma2 diagnosis is Pneumonia due to other specified bacteria; Severe sepsis without septic shock; Chronic obstructive pulmonary disease with (acute) exacerbation. Bed requested for Intensive Care Unit. Status is Inpatient Admission. Condition is Critical. Problem is new. Symptoms are unchanged. UTI on Admission? No. ma2 09:45 09:10 09/20/2019 08:50 Hospitalization Ordered by Kalyan Carmona DO [facility]. Preliminary diagnosis is Pneumonia due to other specified bacteria; Severe sepsis without septic shock; Chronic obstructive pulmonary disease with (acute) exacerbation; Cystitis, unspecified without hematuria; Non-ST elevation (NSTEMI) myocardial infarction. Bed requested for Intensive Care Unit. Status is Inpatient Admission. Condition is Critical. Problem is new. Symptoms are unchanged. UTI on Admission? No. ma2 13:01 09:45 09/20/2019 08:50 Hospitalization Ordered by Anshul Zambrano for Inpatient Admission. Preliminary diagnosis is Pneumonia due to other specified bacteria; Severe sepsis without septic shock; Chronic obstructive pulmonary disease with (acute) exacerbation; Cystitis, unspecified without hematuria; Non-ST elevation (NSTEMI) myocardial infarction. Bed requested for Intensive Care Unit. Status is Inpatient Admission. Condition is Critical. Problem is new. Symptoms are unchanged. UTI on Admission? No. ma2 14:53 13:01 09/20/2019 08:50 Hospitalization Ordered by Anshul Zambrano for Inpatient Admission. Preliminary diagnosis is Pneumonia due to other specified bacteria; Severe sepsis without septic shock; Chronic obstructive pulmonary disease with (acute) exacerbation; Cystitis, unspecified without hematuria; Non-ST elevation (NSTEMI) myocardial infarction. Bed requested for Intensive Care Unit. Status is Inpatient Admission. Condition is Critical. Problem is new. Symptoms are unchanged. UTI on Admission? No. ss
--- NOTE | 2019-09-20 08:52 | ER ---
Nurse's Notes [facility] Name: Fela Mustafa Age: 74 yrs Sex: Female : 1945 Arrival Date: 09/20/2019 Time: 07:25 Bed 4 Private MD: Diagnosis: Pneumonia due to other specified bacteria;Severe sepsis without septic shock;Chronic obstructive pulmonary disease with (acute) exacerbation;Cystitis, unspecified without hematuria;Non-ST elevation (NSTEMI) myocardial infarction Presentation: 09/20 07:28 Presenting complaint: EMS states: difficulty breathing x 2 days, worse today. ss Transition of care: patient was not received from another setting of care. Onset of symptoms was September 18, 2019. Risk Assessment: Do you want to hurt yourself or someone else? Patient reports no desire to harm self or others. Initial Sepsis Screen: Does the patient meet any 2 criteria? RR > 20 per min. Temp <36.0*C (96.8*F)) or > 38.3*C (100.9*F). HR > 90 bpm. Yes Does the patient have a suspected source of infection? Yes: Productive cough/pneumonia. Care prior to arrival: None. 07:28 Acuity: GENO 1 ss 07:28 Method Of Arrival: EMS: [facility] Historical: - Allergies: 07:29 No Known Allergies; ss - Home Meds: 08:30 metoprolol succinate 25 mg oral Tb24 1 tab once daily [Active]; bupropion HCl 150 mg ph Oral TbER 1 tab once daily [Active]; montelukast 4 mg oral chew daily [Active]; pramipexole 0.25 mg oral tab 1 tab 3 times per day [Active]; levothyroxine 125 mcg tab 2 tabs once daily [Active]; pantoprazole 40 mg oral TbEC 1 tab once daily [Active]; ondansetron HCl 8 mg Oral tab 1 tab every 8 hours [Active]; Qvar 80 mcg/actuation inhalation aero [Active]; Claritin-D 12 Hour 5-120 mg Oral Tb12 1 tab every 12 hours [Active]; - PMHx: 07:29 COPD; heart issues; Lung CA; ss - Immunization history:: Adult Immunizations unknown. - Social history:: Smoking status: Patient uses tobacco products, 1/4 ppd, Patient/guardian denies using alcohol, street drugs, The patient lives with family. - Ebola Screening: : No symptoms or risks identified at this time. - Family history:: not pertinent. - Hospitalizations: : No recent hospitalization is reported. Screenin:01 Abuse screen: Denies threats or abuse. Denies injuries from another. Nutritional ph screening: No deficits noted. Tuberculosis screening: No symptoms or risk factors identified. Fall Risk None identified. Assessment: 07:35 Reassessment: RT at bedside to place pt on bi-pap. General: Appears distressed, ph uncomfortable, Behavior is cooperative, anxious, Reports chills for fever for. Pain: Denies pain. Neuro: Level of Consciousness is awake, alert, obeys commands, Oriented to person, place, time, situation. Cardiovascular: Reports lightheadedness, shortness of breath, Capillary refill is sluggish Edema is 2+ to right ankle and right foot Rhythm is sinus tachycardia. Respiratory: Reports shortness of breath at rest cough that is air hunger labored breathing Airway is patent Respiratory effort is labored, gasping, with retractions, shallow, using tripod position, Respiratory pattern is tachypnea Breath sounds are diminished. GI: No signs and/or symptoms were reported involving the gastrointestinal system. Derm: Skin is fragile, is thin, Skin is dusky. Musculoskeletal: Circulation, motion, and sensation intact. Range of motion: intact in all extremities. 08:31 Reassessment: Patient appears in no apparent distress at this time. Patient and/or ph family updated on plan of care and expected duration. Pain level reassessed. Pt resting more comfortably w/ bi-pap in place, respirations decreased and work of breathing noted to have improved, awaiting lab and xray results. 09:30 Reassessment: Patient appears in no apparent distress at this time. Patient and/or ph family updated on plan of care and expected duration. Pain level reassessed. Pt resting comfortably w/ bi-pap in place, awaiting room assignment. 10:00 Reassessment: Spoke w/ ERP about elevated lactate, initial fluid order for 1 liter NS, ph bolus per sepsis protocol is 2250, verbal order received for additional IV fluids, see MAR. 11:00 Reassessment: Patient appears in no apparent distress at this time. No changes from ph previously documented assessment. 12:15 Reassessment: Patient appears in no apparent distress at this time. Patient and/or ph family updated on plan of care and expected duration. Pain level reassessed. Pt asleep w/ even respirations, bi-pap in place, VSS, awaiting room assignment. 13:15 Reassessment: Patient appears in no apparent distress at this time. No changes from ph previously documented assessment. Patient and/or family updated on plan of care and expected duration. Pain level reassessed. 14:18 Reassessment: Patient appears in no apparent distress at this time. No changes from ph previously documented assessment. Patient and/or family updated on plan of care and expected duration. Pain level reassessed. Report called to Jose DILLON. Vital Signs: 07:25 BP 185 / 130; Pulse 158; Resp 36; Temp 103.2; Pulse Ox 93% on 4 lpm NC; Weight 76.2 kg; ph 08:18 BP 85 / 65; Pulse 130; Resp 26; Temp 103.1; Pulse Ox 100% on BiPAP; ph 08:33 BP 83 / 57; Pulse 128; Resp 32; Temp 102.5; Pulse Ox 100% on BiPAP; ph 09:13 BP 88 / 55; Pulse 114; Resp 26; Temp 100.8(C); Pulse Ox 100% on BiPAP; ph 09:50 BP 97 / 58; Pulse 109; Resp 24; Temp 100.1; Pulse Ox 100% on BiPAP; jl7 10:15 BP 101 / 74; Pulse 109; Resp 24; Temp 100.1(C); Pulse Ox 100% on BiPAP; ph 10:40 BP 110 / 72; Pulse 105; Resp 24; Temp 99.8(C); Pulse Ox 100% on BiPAP; ph 11:50 BP 119 / 81; Pulse 103; Resp 20; Temp 98.7(C); Pulse Ox 99% on BiPAP; ph 12:42 BP 114 / 63; Pulse 101; Resp 20; Temp 98.3(C); Pulse Ox 99% on BiPAP; ph 13:30 BP 115 / 70; Pulse 102; Resp 20; Temp 98.0; Pulse Ox 99% on BiPAP; ph Vitals: 08:33 Cardiac Rhythm Assessment Sinus tach. ph ED Course: 07:25 Patient arrived in ED. am2 07:25 Inserted saline lock: 22 gauge in right antecubital area, using aseptic technique. ph 07:29 Triage completed. ss 07:29 Pawan Esposito MD is Attending Physician. ma2 07:30 Inserted saline lock: 22 gauge in left antecubital area, using aseptic technique. Blood ph collected. 07:30 O2 via Bi-pap. ph 07:38 Jaswinder Dyer, RN is Primary Nurse. jl7 07:45 Initial lab(s) drawn, by me, sent to lab. First set of blood cultures drawn Urine ph collected: Dorsey catheter specimen, cloudy. 07:45 Dorsey cath inserted, using sterile technique, 16 Fr., by me, balloon inflated, to ph gravity drainage, urine specimen collected. other temperature monitoring Dorsey placed. 07:53 Arm band placed on Patient placed in an exam room. ph 07:58 Patient has correct armband on for positive identification. Bed in low position. Call ph light in reach. Side rails up X 1. monitoring and evaluation advisor on. Pulse ox on. NIBP on. PO fluids given. Verbal reassurance given. 08:33 Patient admitted, IV remains in place. ph 08:38 EKG done, by histologist technologist. reviewed by Pawan Esposito MD. at1 08:49 Kalyan Carmona DO is Hospitalizing Provider. ma2 09:45 Hospitalizing Provider role handed off by Kalyan Carmona DO ma2 09:45 Anshul Zambrano is Hospitalizing Provider. ma2 10:40 No provider procedures requiring assistance completed. ph 12:47 Primary Nurse role handed off by Jaswinder Dyer, WILMA ph 12:47 Debi Edgar, WILMA is Primary Nurse. ph Administered Medications: 07:35 Drug: Xopenex 1.25 mg Route: Inhalation; ph 07:35 Drug: AtroVENT Aerosol 0.5 mg Route: Inhalation; ph 07:55 Drug: AtroVENT Aerosol 0.5 mg Route: Inhalation; ph 08:10 Drug: Rocephin 1 grams Route: IV; Rate: calculated rate; Site: right antecubital; ph 08:25 Follow up: Response: No adverse reaction; IV Status: Completed infusion ph 08:10 Drug: NS 0.9% 1000 ml Route: IV; Rate: 1 bolus; Site: right antecubital; ph 09:33 Follow up: Response: No adverse reaction; IV Status: Completed infusion; IV Intake: ph 1000ml 08:10 Drug: Tylenol 1000 mg Route: PO; ph 09:33 Follow up: Response: No adverse reaction; Temperature is decreased ph 08:12 Drug: AtroVENT Aerosol 0.5 mg Route: Inhalation; ph 09:30 Follow up: Response: No adverse reaction ph 08:12 Drug: Magnesium Sulfate 2 grams Route: IVPB; Infused Over: 2 hrs; Site: right ph antecubital; 09:34 Follow up: Response: No adverse reaction; IV Status: Completed infusion; IV Intake: ph 100ml 08:13 Drug: SOLU-Medrol 125 mg {Note: 62.5 mg dose given , 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 ph 09:34 IV: 100ml; Total: 1100ml. ph Outcome: 08:50 Decision to Hospitalize by Provider. ma2 14:53 Patient left the ED. ss 14:53 Admitted to ICU accompanied by nurse, accompanied by tech, via stretcher, room 6, with ph oxygen, on monitor. 14:53 Condition: stable 14:53 Instructed on the need for admit. Signatures: Yvonne Markham RN RN ss Sara Page, bag hanger EKG Tat1 Debi Edgar RN RN ph Jaswinder Dyer RN RN jl7 Sara Parker am2 Pawan Esposito MD MD ma2 Corrections: (The following items were deleted from the chart) 08:17 08:15 NS 0.9% 1000 ml IV at 1 bolus in right antecubital ph ph 10:38 10:00 Reassessment: Spoke w/ ERP about elevated lactate, initial fluid order for 1 ph liter NS, verbal order received for additional IV fluids, see MAR ph
[2019-09-20] MEDS ORDERED: AZITHROMYCIN IV 500 MG in NA CHLORIDE 0.9% 250 ML IVPB ONE (09:00)
--- NOTE | 2019-09-20 09:23 | RAD REPORT ---
EXAM DESCRIPTION: RAD - Chest Single View - 09/20/2019 8:59 am CLINICAL HISTORY: CONGESTION Chest pain. COMPARISON: Chest Single View dated 08/23/2019; Chest Single View dated 08/21/2019; Chest Pa And Lat (2 Views) dated 08/13/2019; Chest Single View dated 08/12/2019 FINDINGS: Portable technique limits examination quality. Right apical lung opacity is again seen, unchanged with volume loss. The lungs are emphysematous. Lef t-sided port catheter tip in the SVC. The heart is normal in size.
[2019-09-20 09:24] LABS: Blood Morphology Comment NOT SEEN (NOT SEEN); Platelet Estimate DECR; Urine White Blood Cell Casts OK
[2019-09-20 09:25] LABS: Anisocytosis 2+
[2019-09-20] MEDS ORDERED: ENOXAPARIN 80 MG/0.8 ML SQ ONE (10:12)
--- NOTE | 2019-09-20 10:40 | EKG ---
Test Date: 2019-09-20 Test Time: 08:30:26 City Planning Engineer: ANGELICA MEASUREMENT RESULTS: Intervals: Rate: 126 FL: 126 QRSD: 104 QT: 324 QTc: 469 [place]: P: 62 FL: 126 QRS: -53 T: 59 INTERPRETIVE STATEMENTS: Sinus tachycardia Right atrial enlargement Pulmonary disease pattern Incomplete right bundle branch block Left anterior fascicular block Moderate voltage criteria for LVH, may be normal variant ST elevation, consider early repolarization, pericarditis, or injury Abnormal ECG Compared to ECG 08/21/2019 19:11:11 Incomplete right bundle-branch block now present Left anterior fascicular block now present Left ventricular hypertrophy now present Left-axis deviation no longer present ST (T wave) deviation still present Electronically Signed On 09-20-19 10:39:35 ENROLLMENT MANAGEMENT VICE PRESIDENT by Sagar Long
[2019-09-20] MEDS ORDERED: ONDANSETRON 4 MG/2 ML VIAL IV PRN (14:19)
[2019-09-20] MEDS ORDERED: ACETAMINOPHEN 500 MG TAB PO PRN (14:19)
[2019-09-20] MEDS: ALBUTEROL 2.5 MG/3 ML NEB SOL NEB SCH ×2 (15:05→20:20)
[2019-09-20] MEDS: IPRATROPIUM BROM 0.5MG/2.5ML NEB SCH ×2 (15:05→20:20)
[2019-09-20] MEDS ORDERED: D50W 25 GM/50 ML SYRINGE/VIAL IV PRN (15:54)
[2019-09-20] MEDS ORDERED: GLUCAGON 1 MG/VIAL IM PRN (15:54)
[2019-09-20] MEDS: INSULIN -REGULAR HUMAN 50 UNIT/0.5 ML ML SQ SCH ×2 (16:51→20:51)
--- NOTE | 2019-09-20 17:36 | P.HP ---
Certification for Inpatient Patient admitted to: Inpatient With expected LOS: >2 Midnights Practitioner: I am a practitioner with admitting privileges, knowledge of patient current condition, hospital course, and medical plan of care. Services: Services provided to patient in accordance with Admission requirements found in Title 42 Section 412.3 of the Code of Federal Regulations Patient History Date of Service: 09/20/19 Reason for admission: Shortness of breath History of Present Illness: 74-year-old woman with a history of pancoast tumor/lung cancer, history of multiple hospitalizations for COPD exacerbations and pneumonia presented to the emergency department with the complaint of progressive shortness of breath and cough productive of whitish to clear sputum. Patient denied any chest pain She has been hospitalized almost every 2 weeks for similar complaints over the past 2 months. Patient denied any fever. Her urine culture and blood cultures during previous hospitalization 3 weeks ago grew ESBL E. coli. Patient was treated with IV meropenem and discharged to complete 14 days of antibiotic treatment. Her chest x-ray today reports no gross changes from previous. Noted patient has leukopenia, mildly elevated lactic acid and elevated pro calcitonin. She was quite dyspneic on presentation required BiPAP therapy. She stated that she was feeling better during my examination in the ED. Patient is admitted for further management of pneumonia and sepsis. Allergies No Known Allergies Allergy (Verified 08/22/19 00:51) Home Medications: Albuterol Neb [Proventil 0.083% Neb Soln] 3 ml IH Q6HP PRN 08/13/19 Arformoterol Tartrate [Brovana] 1 puff IH BID 08/13/19 Ipratropium/Albuterol Sulfate [Iprat-Albut 0.5-3(2.5) mg/3 ml] 3 ml IH Q6H PRN 08/13/19 Levothyroxine [Synthroid*] 2 tab PO [id number] 08/13/19 Pramipexole [Mirapex*] 3 tab PO BEDTIME 08/13/19 predniSONE [Prednisone*] 20 mg PO BID #10 tab 08/26/19 Acetaminophen/Diphenhydramine [Percogesic Extra Str Caplet] 1 tab PO Q6H PRN Metoprolol Succinate [Toprol Xl] 1 tab PO DAILY 09/20/19 Roflumilast [Daliresp*] 500 mcg PO DAILY #30 tablet 09/21/19 Ertapenem Na [Invanz] 1 gm IVPB Q24H 13 Days #13 vial 09/23/19 levoFLOXacin [Levaquin] 750 mg PO DAILY #10 tab 09/23/19 - Past Medical/Surgical History Has patient received pneumonia vaccine in the past: Yes Diabetic: No -: Lung cancer suspect stage IV on chemotherapy -: COPD -: History of thyroid cancer -: History of IBS -: IBS -: Thyroid surgery -: gallbladder -: tubal ligation Psychosocial/ Personal History: Patient originally from [facility], getting most of her cancer care in [facility] Patient was visiting in the area. - Family History Father -: Cancer Mother -: Cancer - Social History Smoking Status: Former smoker Alcohol use: No CD- Drugs: No Caffeine use: Yes Place of Residence: Home Review of Systems Other: General: No fever, no malaise.. Eyes: No eye discharge, CVS: No chest pain, no palpitation, no lightheadedness. GI: No abdominal pain, no nausea no vomit, no constipation, no diarrhea. Genitourinary: No dysuria, no urinary frequency, no incontinence, no hematuria. Musculoskeletal: No joint pains, or joint swelling, no gait instability. Neurology: No headache, no asymmetric, weakness, no problem with swallowing. Except as documented, all other systems reviewed and negative. Physical Examination - Vital Signs Temperature: 98.3 F Blood Pressure: 124/81 Pulse: 104 Respirations: 20 Pulse Ox (%): 99 - Physical Exam General: Alert, Oriented x3, Mild distress HEENT: Atraumatic, Mucous membr. moist/pink Neck: Supple, JVD not distended Respiratory: Diminished, Expiratory wheezes (Mild diffuse wheezing,) Cardiovascular: No edema, Regular rate/rhythm, Normal S1 S2, Other (Tachycardic) Gastrointestinal: Normal bowel sounds, Soft and benign, No tenderness Musculoskeletal: No swelling Integumentary: Erythema (Right ankle) Neurological: Normal speech, Normal strength at 5/5 x4 extr - Studies Laboratory Data (last 24 hrs) 09/20/19 07:30: PT 12.2, INR 1.04, APTT 22.7 L 09/20/19 07:30: WBC 2.7 L, Hgb 11.3 L, Hct 34.2 L, Plt Count 107 L 09/20/19 07:30: Sodium 141, Potassium 4.5, BUN 18, Creatinine 0.88, Glucose 217 H, Magnesium 2.0, Total Bilirubin 0.6, AST 157 H, ALT 102 H, Alkaline Phosphatase 192 H, Lipase 336 Microbiology Data (last 24 hrs): 09/20/19 07:50 Nasopharnyx Influenza Type A Antigen Screen - Final 09/20/19 07:50 Nasopharnyx Influenza Type B Antigen Screen - Final Assessment and Plan - Problems (Diagnosis) (1) Acute and chronic respiratory failure with hypoxia Status: Acute (2) COPD exacerbation Status: Acute (3) Sepsis Status: Acute (4) Lung cancer Status: Chronic - Plan Admit to the ICU. Continued BiPAP therapy. Scheduled bronchodilators IV steroid IV antibiotics-IV Levaquin and meropenem. Monitor blood glucose for steroid-induced hyperglycemia. Consult to pulmonary Chest physiotherapy. Follow blood cultures. Titrate oxygen. - Advance Directives Does patient have a Living Will: No Does patient have a Durable POA for Healthcare: No
[2019-09-20] MEDS: METHYLPREDNISOLONE 40 MG INJ IV SCH (17:39)
[2019-09-21] MEDS: Meropenem 500 MG in NA CHLORIDE 0.9% 100 ML IV SCH ×3 (00:32→17:13)
[2019-09-21] MEDS: METHYLPREDNISOLONE 40 MG INJ IV SCH ×4 (00:33→17:14)
[2019-09-21] MEDS ORDERED: Meropenem 500 MG VIAL IV SCH (01:00)
[2019-09-21] MEDS ORDERED: Meropenem 500 MG/100 ML IVPB IV SCH (01:00)
[2019-09-21] MEDS: ALBUTEROL 2.5 MG/3 ML NEB SOL NEB SCH ×4 (02:00→20:47)
[2019-09-21] MEDS: IPRATROPIUM BROM 0.5MG/2.5ML NEB SCH ×4 (02:00→20:47)
[2019-09-21 05:15] LABS: Absolute Lymphocytes (CBC) 0.4 K/uL (0.7-4.9); Basophils % 0.1 % (0-1.3); Hematocrit 27.4 % (36.0-45.0); Lymphocytes % 4.8 % (15.3-44.8); RBC Red Blood Cell Count 3.59 M/uL (3.86-4.86)
[2019-09-21 05:25] LABS: Magnesium 2.3 mg/dL (1.8-2.4); Phosphorus 3.8 mg/dL (2.5-4.9); Potassium 4.2 mmol/L (3.5-5.1)
[2019-09-21 05:50] VITALS: BMI 28.1
[2019-09-21] MEDS: INSULIN -REGULAR HUMAN 50 UNIT/0.5 ML ML SQ SCH ×4 (07:24→20:55)
[2019-09-21] MEDS: ENOXAPARIN 40 MG/0.4 ML SQ SCH (08:18)
[2019-09-21] MEDS ORDERED: FORMOTEROL FUMARATE 20 MCG/2 ML VIAL.NEB IH SCH (08:35)
[2019-09-21] MEDS: ROFLUMILAST 500 MCG TABLET PO SCH (08:57)
[2019-09-21] MEDS ORDERED: Levofloxacin 750mg IV 750 MG/150 ML BAG IV SCH (10:00)
--- NOTE | 2019-09-21 12:25 | P.CNS ---
Date of Consult: 09/21/19 Chief Complaint: Shortness of breath History of Present Illness: Patient is undergoing is a very different hospital admissions history of COPD and lung cancer narrative in acute on chronic shortness of breath complied with the medication she uses Brovana at home nebulizers not how can interfere in the hospital complaining of cough congestion Allergies No Known Allergies Allergy (Verified 08/22/19 00:51) Home Medications: Albuterol Neb [Proventil 0.083% Neb Soln] 3 ml IH Q6HP PRN 08/13/19 Arformoterol Tartrate [Brovana] 1 puff IH BID 08/13/19 Ipratropium/Albuterol Sulfate [Iprat-Albut 0.5-3(2.5) mg/3 ml] 3 ml IH Q6H PRN 08/13/19 Levothyroxine [Synthroid*] 2 tab PO [id number] 08/13/19 Pramipexole [Mirapex*] 3 tab PO BEDTIME 08/13/19 predniSONE [Prednisone*] 20 mg PO BID #10 tab 08/26/19 Acetaminophen/Diphenhydramine [Percogesic Extra Str Caplet] 1 tab PO Q6H PRN Metoprolol Succinate [Toprol Xl] 1 tab PO DAILY 09/20/19 Roflumilast [Daliresp*] 500 mcg PO DAILY #30 tablet 09/21/19 - Past Medical/Surgical History Diabetic: No -: Lung cancer suspect stage IV on chemotherapy -: COPD -: History of thyroid cancer -: History of IBS -: IBS -: Thyroid surgery -: gallbladder -: tubal ligation Psychosocial/ Personal History: Patient originally from [facility], getting most of her cancer care in [place] at [facility]. Patient was visiting in the area. - Family History Father Medical History: Cancer Mother Medical History: Cancer - Social History Alcohol use: No CD- Drugs: No Caffeine use: Yes Place of Residence: Home Review of Systems 10-point ROS is otherwise unremarkable General: Weakness Respiratory: Cough, Shortness of Breath Physical Examination Temp Pulse Resp BP Pulse Ox 97.3 F 101 H 20 133/81 100 09/21/19 08:00 09/21/19 11:00 09/21/19 11:00 09/21/19 11:00 09/21/19 11:00 General: Alert, In no apparent distress, Oriented x3 Neck: Supple Respiratory: Expiratory wheezes Cardiovascular: No edema, Regular rate/rhythm, Normal S1 S2 - Problems (1) COPD exacerbation Current Visit: No Status: Acute Plan: Patient is RDW is a very good history of lung cancer COPD admitted with another exacerbation she is got a recurrent exacerbation unfortunately she has blood cultures are positive urinalysis is also positive for gram-negative rods patient had esbl ecoli pro calcitonin elevated chest x-ray no change patient has a right upper lobe opacity mob per prior lung cancer and renal ultrasound last month was unremarkable
--- NOTE | 2019-09-21 13:58 | P.PN ---
Subjective Date of Service: 09/21/19 Chief Complaint: Shortness of breath Patient states she feels much better today. She was on BiPAP all night. She had to be placed on BiPAP for transient increase in shortness of breath after breakfast. She is coughing occasionally, she has been afebrile and denies any chest pain. Physical Examination - Vital Signs Temperature: 97.1 F Blood Pressure: 111/82 Pulse: 115 Respirations: 19 Pulse Ox (%): 98 - Physical Exam General: Alert, In no apparent distress, Oriented x3 HEENT: Mucous membr. moist/pink Neck: Supple, JVD not distended Respiratory: Normal air movement, Expiratory wheezes (Mild scattered wheezes) Cardiovascular: No edema Gastrointestinal: Soft and benign, Non-distended, No tenderness Neurological: Normal speech - Studies Microbiology Data (last 24 hrs): 09/20/19 07:30 Blood - Blood Gram Stain - Final 09/20/19 07:30 Blood - Blood Gram Stain - Final 09/20/19 07:38 Blood - Blood Gram Stain - Final 09/20/19 07:38 Blood - Blood Gram Stain - Final 09/20/19 07:50 Nasopharnyx Influenza Type A Antigen Screen - Final 09/20/19 07:50 Nasopharnyx Influenza Type B Antigen Screen - Final Assessment And Plan - Current Problems (Diagnosis) (1) Acute and chronic respiratory failure with hypoxia Current Visit: Yes Status: Acute (2) COPD exacerbation Current Visit: No Status: Acute (3) Sepsis Current Visit: No Status: Acute (4) Lung cancer Current Visit: Yes Status: Chronic (5) Acute cystitis Current Visit: Yes Status: Acute (6) Bacteremia due to Gram-negative bacteria Current Visit: Yes Status: Acute - Plan Urine culture and blood cultures are growing Gram negative rods. Prior history of ESBL in the urine and blood previous hospitalization Continue IV meropenem Scheduled bronchodilators IV steroid Monitor blood glucose for steroid-induced hyperglycemia. Pulmonary input appreciated. Chest physiotherapy. Follow blood cultures and urine cultures Infectious disease consult. Titrate oxygen.
--- NOTE | 2019-09-21 18:46 | CON ---
Subjective: There is a 74-year-old female [facility] Patient is coming in with shortness of breath and fever of 103.9, has significant past medical hi story of longstanding emphysema, COPD, and lung cancer, currently being treated and stable. Patient denies any other problems except that she bumped her right leg to the wheelchair after which she deve loped a small wound and caused to have some drainage from there and bruising. Past Medical History: Includes lung cancer of the right side, COPD, emphysema, oxygen-dependent, thy roid cancer, irritable bowel syndrome, thyroid surgery, gallbladder surgery, tubal ligation. Social History: Tobacco. Ex smoker. No alcohol use. Family History: Noncontributory. Medications: Currently, patient is on meropenem. See MAR for other medications. Allergies: NO KNOWN DRUG ALLERGIES. Review of Systems: A 10-point review was performed. Physical Examination: General: This is a 74-year-old female, sitting in bed, not in mild to moderate respiratory distress, on nasal cannula. Vital Signs: Temperature 97.1, pulse 115, respirations 24, blood pressure 111/82. HEENT: Unremarkable. Neck: Supple. Lungs: Basal crackles. Heart: S1 and S2 are regular. Abdomen: Soft, nontender. Bowel sounds present. Extremities: 2+ edema with right lower extremity bruising noted over the ankle area and above ankle, with a small wound. Laboratory Data: Shows WBC 8.8, hemoglobin 9.1, platelets are 102. On arrival, patient's WBC was 2. 7. Sodium 143, potassium 4.2, chloride 111, bicarb 30, BUN 22, creatinine 0.6, glucose 187. Procalc itonin is 2.3. Micro Data: Blood cultures negative up to date. Urine cultures growing more than 100,000 gram-negat jai rods. Right ankle wound cultures are pending. Assessment And Plan: Chronic obstructive pulmonary disease exacerbation, right lower extremity wound and urinary tract infection secondary to gram-negative carly. Continue meropenem. Pending culture re sults. Can be switched to oral once patient's cultures have more data. We will follow the patient c losely. Thank you Dr. Zambrano for consult. BURT/OIL Voice ID: [id number] Report ID: [id number]
[2019-09-21] MEDS: PRAMIPEXOLE 0.25 MG TAB PO SCH (20:32)
[2019-09-21] MEDS: FORMOTEROL FUMARATE 20 MCG/2 ML VIAL.NEB IH SCH (20:47)
[2019-09-22] MEDS: Meropenem 500 MG in NA CHLORIDE 0.9% 100 ML IV SCH ×2 (00:45→08:39)
[2019-09-22] MEDS: METHYLPREDNISOLONE 40 MG INJ IV SCH ×2 (00:45→08:40)
[2019-09-22] MEDS: ALBUTEROL 2.5 MG/3 ML NEB SOL NEB SCH ×4 (02:08→19:50)
[2019-09-22] MEDS: IPRATROPIUM BROM 0.5MG/2.5ML NEB SCH ×4 (02:08→19:50)
[2019-09-22 05:40] LABS: Absolute Lymphocytes (CBC) 0.3 K/uL (0.7-4.9); Basophils % 0.1 % (0-1.3); Hematocrit 27.9 % (36.0-45.0); Lymphocytes % 4.3 % (15.3-44.8); MPV 8.7 fL (7.6-11.3); RBC Red Blood Cell Count 3.65 M/uL (3.86-4.86)
[2019-09-22] MEDS: LEVOTHYROXINE SOD 0.125 MG TAB PO SCH (06:29)
[2019-09-22 07:28] LABS: Potassium 4.3 mmol/L (3.5-5.1)
[2019-09-22] MEDS: INSULIN -REGULAR HUMAN 50 UNIT/0.5 ML ML SQ SCH ×4 (07:30→20:46)
[2019-09-22] MEDS: FORMOTEROL FUMARATE 20 MCG/2 ML VIAL.NEB IH SCH ×2 (07:50→19:50)
--- NOTE | 2019-09-22 08:02 | EKG ---
Test Date: 2019-09-20 Test Time: 07:30:02 Cis Coordinator: CALVIN MEASUREMENT RESULTS: Intervals: Rate: 156 NV: 130 QRSD: 98 QT: 264 QTc: 425 Albia: P: 46 NV: 130 QRS: -50 T: 80 INTERPRETIVE STATEMENTS: Sinus tachycardia Left anterior fascicular block Abnormal ECG Compared to ECG 08/21/2019 19:11:11 Ventricular premature complex(es) now present ST and (T wave) deviation no longer present Electronically Signed On 09-22-19 08:02:00 GLOBAL CONSUMER SECTOR VICE PRESIDENT by Sagar Long
[2019-09-22 08:13] LABS: Anisocytosis 2+; Blood Morphology Comment NOTED (NOT SEEN); Platelet Estimate ADEQ
[2019-09-22] MEDS: ENOXAPARIN 40 MG/0.4 ML SQ SCH (08:40)
[2019-09-22] MEDS: ROFLUMILAST 500 MCG TABLET PO SCH (08:41)
--- NOTE | 2019-09-22 13:15 | P.PN ---
Subjective Date of Service: 09/22/19 Chief Complaint: Shortness of breath Patient states she feels much better today. She has good oxygen saturation on 2 L oxygen by nasal cannula. She is coughing occasionally, she has been afebrile and denies any chest pain. She desires to go home as soon as possible. She stated she has a Ир[place] libertarian to attend on Friday09/25/2019 and that libertarian is more important than her health. She states she has to leave the hospital before Friday by any means. Her blood cultures and urine culture are growing ESBL E.coli. The patient is afebrile and has no leukocytosis. Physical Examination - Vital Signs Temperature: 97.2 F Blood Pressure: 167/89 Pulse: 104 Respirations: 18 Pulse Ox (%): 97 - Physical Exam General: Alert, In no apparent distress, Oriented x3 HEENT: Mucous membr. moist/pink Neck: Supple, JVD not distended Respiratory: Clear to auscultation bilaterally, Normal air movement Cardiovascular: Regular rate/rhythm, Normal S1 S2 Gastrointestinal: Soft and benign, No tenderness Musculoskeletal: No swelling Neurological: Normal speech, Normal strength at 5/5 x4 extr - Studies Microbiology Data (last 24 hrs): 09/20/19 07:30 Blood - Blood Aerobic Blood Culture - Final Escherichia Coli Esbl 09/20/19 07:30 Blood - Blood Gram Stain - Final 09/20/19 07:30 Blood - Blood Anaerobic Blood Culture - Final Escherichia Coli Esbl 09/20/19 07:30 Blood - Blood Gram Stain - Final 09/20/19 07:38 Blood - Blood Aerobic Blood Culture - Final Escherichia Coli Esbl 09/20/19 07:38 Blood - Blood Gram Stain - Final 09/20/19 07:38 Blood - Blood Anaerobic Blood Culture - Final Escherichia Coli Esbl 09/20/19 07:38 Blood - Blood Gram Stain - Final 09/20/19 07:55 Catheterized Urine [place] Count - Final >100,000 CFU/ML. 09/20/19 07:55 Catheterized Urine - Final Escherichia Coli Esbl Assessment And Plan - Current Problems (Diagnosis) (1) Acute and chronic respiratory failure with hypoxia Current Visit: Yes Status: Acute (2) COPD exacerbation Current Visit: No Status: Acute (3) Sepsis Current Visit: No Status: Acute (4) Lung cancer Current Visit: Yes Status: Chronic (5) Acute cystitis Current Visit: Yes Status: Acute (6) Bacteremia due to Gram-negative bacteria Current Visit: Yes Status: Acute - Plan Urine culture and blood cultures are growing ESBL E. coli. There was a concern for Port-A-cath infection seeding the blood. Case discussed with infectious disease-Dr. Rowley. Plan as attempt to salvage the port with prolonged IV antibiotic therapy. Continue IV meropenem Repeat blood cultures today, 1 from the periphery and 1 from the port. Contain Scheduled bronchodilators Discontinue steroid. Monitor blood glucose for steroid-induced hyperglycemia. Chest physiotherapy. Follow blood cultures and urine cultures Titrate oxygen.
--- NOTE | 2019-09-22 16:44 | PN ---
Subjective: Patient sitting in bed, not in any acute distress today. Objective: Vital Signs: Temperature 97, pulse 100, respirations 18, blood pressure 167/89. LUNGS: Decreased breath sound and basal crackles. Heart: S1 and S2 regular. Abdomen: Soft, nontender. Bowel sounds present. Extremities: No edema. Laboratory Data: WBC 6.7, hemoglobin 9.3, platelets are 130. Chemistry; sodium 141, potassium 4.3, chloride 108, bicarb 28, BUN 35, creatinine 0.6, glucose 272. Wound culture from the right leg is gr owing Enterobacter cloacae. Urine cultures are growing ESBL. Blood cultures are pending. ESBL Esch erichia coli, sensitive to gentamicin, Zosyn, meropenem, and amikacin. Assessment And Plan: Urinary tract infection, chronic obstructive pulmonary disease exacerbation, ri ght ankle cellulitis, and wound healing well. Continue antibiotic and supportive care. We will foll ow the patient as needed. NF/MODL Voice ID: [id number] Report ID: [id number]
[2019-09-22] MEDS ORDERED: Meropenem 1,000 MG in NA CHLORIDE 0.9% 100 ML IV SCH (17:00)
[2019-09-22] MEDS: Meropenem 1,000 MG in NA CHLORIDE 0.9% 100 ML IV SCH (18:19)
[2019-09-22] MEDS: PRAMIPEXOLE 0.25 MG TAB PO SCH (20:44)
[2019-09-23] MEDS: ALBUTEROL 2.5 MG/3 ML NEB SOL NEB SCH ×2 (01:05→08:08)
[2019-09-23] MEDS: IPRATROPIUM BROM 0.5MG/2.5ML NEB SCH ×4 (01:05→19:20)
[2019-09-23] MEDS: Meropenem 1,000 MG in NA CHLORIDE 0.9% 100 ML IV SCH ×2 (01:16→09:40)
[2019-09-23 05:12] LABS: BUN Blood Urea Nitrogen 21 mg/dL (7-18); Bicarbonate 34 mmol/L (21-32); Glucose Level 113 mg/dL (74-106); Potassium 3.8 mmol/L (3.5-5.1); Sodium Level 143 mmol/L (136-145)
[2019-09-23 05:16] LABS: Absolute Lymphocytes (CBC) 0.6 K/uL (0.7-4.9); Basophils % 0.3 % (0-1.3); Lymphocytes % 9.7 % (15.3-44.8); MPV 8.3 fL (7.6-11.3); RBC Red Blood Cell Count 3.68 M/uL (3.86-4.86)
[2019-09-23] MEDS: LEVOTHYROXINE SOD 0.125 MG TAB PO SCH (06:11)
[2019-09-23] MEDS: INSULIN -REGULAR HUMAN 50 UNIT/0.5 ML ML SQ SCH ×4 (07:30→21:00)
[2019-09-23] MEDS: FORMOTEROL FUMARATE 20 MCG/2 ML VIAL.NEB IH SCH ×2 (08:08→19:20)
[2019-09-23] MEDS: ROFLUMILAST 500 MCG TABLET PO SCH (08:20)
[2019-09-23] MEDS: ENOXAPARIN 40 MG/0.4 ML SQ SCH (08:21)
[2019-09-23] MEDS ORDERED: ALBUTEROL 2.5 MG/3 ML NEB SOL NEB PRN (08:36)
--- NOTE | 2019-09-23 08:40 | P.PN ---
Subjective Date of Service: 09/23/19 Chief Complaint: E coli sepsis recurrent Subjective: Improving (Patient is improving breathing has improved all blood cultures are positive again for E coli) Review of Systems General: Weakness Respiratory: Shortness of Breath Physical Examination - Vital Signs Temperature: 97.5 F Blood Pressure: 140/67 Pulse: 106 Respirations: 19 Pulse Ox (%): 99 - Physical Exam General: Alert, Oriented x3 Neck: Supple Respiratory: Clear to auscultation bilaterally, Diminished Cardiovascular: No edema, Regular rate/rhythm - Studies Microbiology Data (last 24 hrs): 09/20/19 07:30 Blood - Blood Aerobic Blood Culture - Final Escherichia Coli Esbl 09/20/19 07:30 Blood - Blood Gram Stain - Final 09/20/19 07:30 Blood - Blood Anaerobic Blood Culture - Final Escherichia Coli Esbl 09/20/19 07:30 Blood - Blood Gram Stain - Final 09/20/19 07:38 Blood - Blood Aerobic Blood Culture - Final Escherichia Coli Esbl 09/20/19 07:38 Blood - Blood Gram Stain - Final 09/20/19 07:38 Blood - Blood Anaerobic Blood Culture - Final Escherichia Coli Esbl 09/20/19 07:38 Blood - Blood Gram Stain - Final 09/20/19 07:55 Catheterized Urine [place] Count - Final >100,000 CFU/ML. 09/20/19 07:55 Catheterized Urine - Final Escherichia Coli Esbl Assessment & Plan - Problems (Diagnosis) (1) COPD exacerbation Current Visit: No Status: Acute Plan: Patient admitted with COPD exacerbation also has recurrent E coli bacteremia recurrent EES BAL infection normal renal ultrasound in August
[2019-09-23] MEDS ORDERED: POTASSIUM CL SA 10 MEQ TAB PO ONE (09:00)
[2019-09-23] MEDS ORDERED: ERTAPENEM SODIUM 1 GM VIAL IVPB SCH (12:00)
--- NOTE | 2019-09-23 13:49 | P.DS ---
Admission Date: 09/20/19 Discharge Date: 09/24/19 Disposition: ROUTINE DISCHARGE Discharge Condition: GOOD Reason for Admission: E coli sepsis recurrent Consultations: Pulmonary-Dr. Rose Infectious Disease; Dr. Bradley. - Problems (1) Acute and chronic respiratory failure with hypoxia Current Visit: Yes Status: Acute (2) COPD exacerbation Current Visit: No Status: Acute (3) Sepsis Current Visit: No Status: Acute (4) Lung cancer Current Visit: Yes Status: Chronic (5) Acute cystitis Current Visit: Yes Status: Acute (6) Bacteremia due to Gram-negative bacteria Current Visit: Yes Status: Acute Brief History of Present Illness: 74-year-old woman with a history of pancoast tumor/lung cancer, history of multiple hospitalizations for COPD exacerbations and pneumonia presented to the emergency department with the complaint of progressive shortness of breath and cough productive of whitish to clear sputum. Patient denied any chest pain She has been hospitalized almost every 2 weeks for similar complaints over the past 2 months. Patient denied any fever. Her urine culture and blood cultures during previous hospitalization 3 weeks ago grew ESBL E. coli. Patient was treated with IV meropenem and discharged to complete 14 days of antibiotic treatment. Her chest x-ray today reports no gross changes from previous. Noted patient has leukopenia, mildly elevated lactic acid and elevated pro calcitonin. She was quite dyspneic on presentation and required BiPAP therapy. Patient was thus admitted for further management of pneumonia and sepsis. Hospital Course: She was admitted to the ICU and started on IV meropenem, scheduled bronchodilators, IV steroid. She was later weaned off BiPAP to oxygen by nasal and transferred to the medical floor where her clinical condition continued to improve with treatment. She was then weaned of steroids. Her blood cultures and urine culture grew ESBL E. coli in all bottles. She had a wound and cellulitis on her right ankle which also grew enterococcus and Enterobacter. She has the left anterior chest port-A-cath for impending chemotherapy. There was a concern for port infection seeding the blood. Blood culture from the port yielded no growth within 24 hrs. Repeat peripheral blood cultures from yesterday yielded no growth within 24 hrs. She was seen and evaluated by pulmonary and infectious disease. Infectious disease recommended prolonged IV ertapenem therapy for the bacteremia and also in an effort to salvage the Port. She is slated for a 2 week course of IV Ertapenem via her port. Patient vehemently insisted on leaving the hospital for a [place] democrat. As a matter of fact she stated the democrat is more important than her health and needs to leave. The situation was discussed with Dr. Bradley. Patient will be discharged per her request, for outpatient IV Invanz therapy. She is also prescribed oral Levaquin for the ankle cellulitis. She is informed to follow with Dr. Bradley within 1 week and also to follow with Dr. Rose as an outpatient. Dr. bradley will be following her during the antibiotic therapy and also for the wound/cellulitis. Vital Signs/Physical Exam: Temp Pulse Resp BP Pulse Ox 97.5 F 106 H 19 140/67 99 09/23/19 08:40 09/23/19 08:40 09/23/19 08:40 09/23/19 08:40 09/23/19 08:40 General: Alert, In no apparent distress, Oriented x3 HEENT: Mucous membr. moist/pink Neck: Supple, JVD not distended Respiratory: Diminished, Other (Mild scattered crackles) Cardiovascular: No edema, Regular rate/rhythm, Normal S1 S2 Gastrointestinal: Normal bowel sounds, Soft and benign, Non-distended, No tenderness Musculoskeletal: No swelling Neurological: Normal speech, Normal strength at 5/5 x4 extr Laboratory Data at Discharge: WBC 6.7 K/uL (4.3-10.9) 09/23/19 04:30 Hgb 9.4 g/dL (12.0-15.0) L 09/23/19 04:30 Hct 28.0 % (36.0-45.0) L 09/23/19 04:30 Plt Count 152 K/uL (152-406) 09/23/19 04:30 PT 12.2 SECONDS (9.5-12.5) 09/20/19 07:30 INR 1.04 09/20/19 07:30 APTT 22.7 SECONDS (24.3-36.9) L 09/20/19 07:30 Sodium 143 mmol/L (136-145) 09/23/19 04:30 Potassium 3.8 mmol/L (3.5-5.1) 09/23/19 04:30 BUN 21 mg/dL (7-18) H 09/23/19 04:30 Creatinine 0.61 mg/dL (0.55-1.3) 09/23/19 04:30 Glucose 113 mg/dL (74-106) H 09/23/19 04:30 Phosphorus 3.8 mg/dL (2.5-4.9) 09/21/19 04:47 Magnesium 2.3 mg/dL (1.8-2.4) 09/21/19 04:47 Total Bilirubin 0.6 mg/dL (0.2-1.0) 09/20/19 07:30 AST 157 U/L (15-37) H 09/20/19 07:30 ALT 102 U/L (12-78) H 09/20/19 07:30 Alkaline Phosphatase 192 U/L (45-117) H 09/20/19 07:30 Lipase 336 U/L (73-393) 09/20/19 07:30 Home Medications: Albuterol Neb [Proventil 0.083% Neb Soln] 3 ml IH Q6HP PRN 08/13/19 Arformoterol Tartrate [Brovana] 1 puff IH BID 08/13/19 Ipratropium/Albuterol Sulfate [Iprat-Albut 0.5-3(2.5) mg/3 ml] 3 ml IH Q6H PRN 08/13/19 Levothyroxine [Synthroid*] 2 tab PO [id number] 08/13/19 Pramipexole [Mirapex*] 3 tab PO BEDTIME 08/13/19 predniSONE [Prednisone*] 20 mg PO BID #10 tab 08/26/19 Acetaminophen/Diphenhydramine [Percogesic Extra Str Caplet] 1 tab PO Q6H PRN Metoprolol Succinate [Toprol Xl] 1 tab PO DAILY 09/20/19 Roflumilast [Daliresp*] 500 mcg PO DAILY #30 tablet 09/21/19 Ertapenem Na [Invanz] 1 gm IVPB Q24H 13 Days #13 vial 09/23/19 levoFLOXacin [Levaquin] 750 mg PO DAILY #10 tab 09/23/19 New Medications: Ertapenem Na [Invanz] 1 gm IVPB Q24H 13 Days #13 vial levoFLOXacin [Levaquin] 750 mg PO DAILY #10 tab Roflumilast [Daliresp*] 500 mcg PO DAILY #30 tablet Diet: Regular Activity: Ad mavis Followup: Dick Rose MD [ACTIVE - CAN ADMIT] - 1-2 Weeks Jag Bradley MD [ACTIVE - CAN ADMIT] - 1 Week Time spent managing pt's care (in minutes): 45
--- NOTE | 2019-09-23 18:34 | RAD REPORT ---
EXAM DESCRIPTION: US - Renal Ultrasound-Complete - 09/23/2019 6:14 pm CLINICAL HISTORY: Recurrent urinary tract infection COMPARISON: Renal Ultrasound-Complete dated 08/08/2019 FINDINGS: Both kidneys are normal in size, shape and echotexture. The right kidney measures 10.4 x 5.1 x 4.9 cm. No hydronephrosis, focal mass or perinephric fluid. The left kidney measures 11.1 x 5.7 x 4.7 cm. No hydronephrosis, focal mass or perinephric fluid. The urinary bladder is incompletely distended without gross abnormality seen. IMPRESSION: Unremarkable renal sonogram.
[2019-09-23] MEDS: PRAMIPEXOLE 0.25 MG TAB PO SCH (21:09)
[2019-09-24] MEDS: IPRATROPIUM BROM 0.5MG/2.5ML NEB SCH ×3 (01:04→15:32)
[2019-09-24] MEDS ORDERED: HYDROCODONE/APAP 10/325 TAB PO ONE (05:43)
[2019-09-24] MEDS: LEVOTHYROXINE SOD 0.125 MG TAB PO SCH (05:51)
[2019-09-24] MEDS: INSULIN -REGULAR HUMAN 50 UNIT/0.5 ML ML SQ SCH ×2 (07:30→11:30)
[2019-09-24] MEDS ORDERED: ERTAPENEM NA 1 GM in NA CHLORIDE 0.9% 100 ML IVPB SCH (08:00)
[2019-09-24] MEDS: ROFLUMILAST 500 MCG TABLET PO SCH (08:27)
[2019-09-24] MEDS: FORMOTEROL FUMARATE 20 MCG/2 ML VIAL.NEB IH SCH (08:27)
[2019-09-24] MEDS: ENOXAPARIN 40 MG/0.4 ML SQ SCH (08:28)
[2019-09-24] MEDS ORDERED: POTASSIUM CL SA 10 MEQ TAB PO ONE (10:32)
--- NOTE | 2019-09-24 14:49 | RAD REPORT ---
EXAM DESCRIPTION: Shoulder Right 2 View - 09/24/2019 2:38 pm CLINICAL HISTORY: Right shoulder pain, decreased range of motion COMPARISON: None. TECHNIQUE: Internal and external rotation views of the right shoulder were obtained. FINDINGS: There is no fracture or dislocation. AC joint degenerative changes are present. Acromial humeral joint space is normal range with no abnormal soft tissue calcifications. Right apex opacifica tion and right hemidiaphragm elevation are noted. These findings are monitored on prior chest films. IMPRESSION: Negative two-view right shoulder examination for acute finding. AC joint degenerative ch anges are present.
--- NOTE | 2019-09-24 15:55 | PN ---
Subjective: Patient lying in bed. Denies any headache, nausea, vomiting, chest pain, abdominal pain , constipation, or diarrhea. Objective: VITAL SIGNS: Temperature 97, pulse 104, respirations 17, blood pressure 139/70. LUNGS: Basal crackles. HEART: S1, S2. Regular. ABDOMEN: Soft, nontender. Bowel sounds present. EXTREMITIES: Trace edema. Laboratory Data: WBC 6.7, hemoglobin 9.4, platelets are 152. Chemistry shows sodium 143, potassium 3.8, chloride 106, bicarb 24, BUN 21, creatinine 0.6, glucose 113. Micro data showing E coli ESBL in blood and urine. Right ankle wound is showing Enterobacter cloacae and Enterobacter faecalis. Assessment And Plan: Bacteremia secondary to E coli ESBL. We will recommend Invanz once a day. Pat ient to come to the emergency room for IV infusion for next 14 days as large blood cultures are showi ng no growth for 24 hours. Patient was also instructed if condition worsen, to come to the emergency room right away. Continue right ankle treatment with Medihoney and alginate. We will follow the andre croft closely. NF/MODL Voice ID: [id number] Report ID: [id number]
[2019-09-24 16:49] VITALS: O2SAT 97
[2019-09-29 14:38] VITALS: BP 124/81; TEMP 98.3
== END 2019-09-24 16:28 | disposition home or self-care (01) | DRG 871 ==
LOC: ER 07:24 → ERHOLD 12:38 → 3RD-ICU 14:25 → 2ND 09-21 11:37
PROVIDERS: ADMIT Internal Medicine; ATTEND Internal Medicine
PROC: 5A09457 Assistance with Respiratory Ventilation, 24-96 Consecutive Hours, Continuous Positive Airway Pressure (ICD-10-PCS; principal; 2019-09-20)
DX: A41.51 Sepsis due to Escherichia coli [E. coli] (principal); J96.01 Acute respiratory failure with hypoxia; J44.1 Chronic obstructive pulmonary disease with (acute) exacerbation; N30.00 Acute cystitis without hematuria; Z16.12 Extended spectrum beta lactamase (ESBL) resistance; C34.90 Malignant neoplasm of unspecified part of unspecified bronchus or lung; L03.115 Cellulitis of right lower limb; B96.20 Unspecified Escherichia coli [E. coli] as the cause of diseases classified elsewhere; B95.2 Enterococcus as the cause of diseases classified elsewhere; B96.89 Other specified bacterial agents as the cause of diseases classified elsewhere
CPT/HCPCS: 36415; 51702; 71045; 76770; 80048; 80076; 81003; 81015; 82550; 82553; 82947; 83605; 83690; 83735; 83880; 84100; 84145; 84484; 85025; 85379; 85610; 85730; 87040; 87070; 87077; 87086; 87088; 87186; 87205; 87804; 93005; 94640; 94660; 96361; 96365; 96372; 96375; 97116; 97161; 99291; J0456; J0696; J1335; J1650; J2405; J2920; J2930; J3475; J7030